=== PATIENT | male | born 1980 | race Caucasian/White ===

== ENCOUNTER → 2020-06-27 15:25 | Outpatient (BNVA) | payer OTHER, SELFPAY | PROVIDERS: PCP Physician Assistant; Visit Provider Surgery | DX: K42.9 Umbilical hernia without obstruction or gangrene (principal); E66.01 Morbid (severe) obesity due to excess calories | CPT/HCPCS: 99202 ==

== ENCOUNTER 2020-07-16 10:13 | Outpatient (REF) | payer OTHER, SELFPAY ==
[2020-07-16 11:32] LABS: MANUAL DIFF FLAG NO
[2020-07-16 11:42] LABS: Basophils Percent Auto 0.6 % (0-2); Eosinophils Absolute Auto 0.1 X10*3/uL (0.0-0.4); Eosinophils Percent Auto 2.6 % (0-4); Hematocrit 43.4 % (42-52); Hemoglobin 13.9 g/dl (14.0-18.0); Imm Gran Abs Auto 0.02 X10*3/uL (0.00-0.03); Imm Gran Pct Auto 0.4 % (0.0-0.4); Lymphocytes Absolute Auto 1.5 X10*3/uL (1.2-4.9); Mean Corpuscular Hemoglobin 28.4 pg (27.0-33.0); Mean Corpuscular Volume 88.6 fL (80-98); Mean Platelet Volume 11.5 fL (9.4-12.4); Monocytes Absolute Auto 0.3 X10*3/uL (0.1-1.2); Monocytes Percent Auto 6.7 % (2-11); Neutrophils Absolute Auto 2.6 X10*3/uL (2.0-8.3); Neutrophils Percent Auto 56.7 % (45-73); Platelet Count 210 X10*3/uL (160-400); Red Cell Distribution Width 13.2 % (11.0-16.0); White Blood Count 4.7 X10*3/uL (4.8-10.8)
[2020-07-16 12:09] LABS: B Type Natriuretic Peptide < 10 pg/mL (<100)
[2020-07-16 12:32] LABS: Estimated Average Glucose 126 mg/dL
[2020-07-16 12:40] LABS: Alanine Aminotransferase 14 U/L (0-40); Albumin Level 4.1 g/dL (3.5-5.0); Alkaline Phosphatase 55 U/L (39-117); Anion Gap 12 (12-20); Aspartate Amino Transferase 10 U/L (5-37); Bilirubin Total 0.2 mg/dL (0.0-1.0); Blood Urea Nitrogen 10 mg/dL (9-16); Calcium 9.1 mg/dL (8.4-10.2); Carbon Dioxide 37 mmol/L (22-29); Chloride 95 mmol/L (96-108); Cholesterol 173 mg/dL; Estimated Glomerular Filt Rate > 60; Glucose Fasting 159 mg/dL (60-99); HDL Cholesterol 42 mg/dL; LDL Cholesterol Calculated 102 mg/dl; Potassium 3.9 mmol/L (3.3-5.1); Sodium 140 mmol/L (135-145); Total Protein 7.2 g/dL (6.5-8.0); Triglycerides 147 mg/dL
== END 2020-07-16 10:14 | disposition home or self-care (01) ==
LOC: HO.LAB 10:13
PROVIDERS: PCP Physician Assistant; Visit Provider Physician Assistant
DX: R60.0 Localized edema (principal); I10 Essential (primary) hypertension
CPT/HCPCS: 36415; 80053; 80061; 83036; 83880; 84443; 85025

== ENCOUNTER → 2020-07-31 07:37 | Day surgery (SDC) | payer OTHER, SELFPAY ==
[2020-07-25 11:44] VITALS: BMI 44.7
--- NOTE | 2020-07-30 08:30 | P.CONAN_ITS ---
Documented by User: Dena Naranjo 07/30/20 08:33 HPI - Anesthesia Eval Consult details Narrative: 40yo M for Hernia Repair Umbilical with mesh PMFSH Active Problems Active Problems: All Active Problems (Updated 07/25/20 @ 12:30 by Eliel Jaeger PA-C) GERD (gastroesophageal reflux disease) (Acute) JAMEEL (generalized anxiety disorder) (Acute) Lower extremity edema (Acute) Smoker (Acute) HTN (hypertension) (Acute) Fall (Acute) Left ankle pain (Acute) Left ankle sprain (Acute) SOB (shortness of breath) on exertion (Acute) Umbilical hernia (Acute) Allergic rhinitis (Acute) ALISON (obstructive sleep apnea) (Acute) Morbid obesity (Acute) Past Medical History Medical History Anxiety Depression HTN (hypertension) Morbid obesity ALISON (obstructive sleep apnea) Family History Family History Mother No problems noted. Father No problems noted. Maternal Grandfather Bone cancer Maternal Aunt Cervical cancer Maternal Grandmother Colon cancer, Onset Age: 89 Surgical History Surgical History H/O shoulder surgery Social History Social History Are you a primary career center director to a significant other at home: No Do you presently have visiting nurse or other home services: No Alcohol intake: never Smoking Status: Current every day smoker Tobacco Type: Cigarette Cigarettes Per Day: 15 Smoked in Last 30 Days: Yes Patient Given Instructions on How to Stop Smoking: Yes Date Education Initiated: 07/25/20 Are you DNR?: No Advance Directives: No Advance Directives Information Provided: No Advance Directives on File: No Recently lost weight without trying: No Eating poorly because of decreased appetite: No Nutrition Risks: No Nutritional Risk Meds Allergies Allergy/AdvReac Type Severity Reaction Status Date / Time No Known Allergies Allergy Verified 07/25/20 11:35 Home Medications Medication Instructions Recorded Confirmed Last Taken Type bupropion HCl 300 mg 24 hr tablet, 300 mg PO QAM 03/22/20 07/25/20 Unknown History extended release Exam Exam Date and Time: July 30, 2020 0830 Height,Weight and Vital Signs: Height 5 ft 11 in Weight 145.603 kg Pertinent Lab Results Pertinent Lab Results: Laboratory Tests 07/16/20 07/16/20 10:38 10:38 WBC 4.7 L Hgb 13.9 L Hct 43.4 Plt Count 210 Sodium 140 Potassium 3.9 Chloride 95 L Carbon Dioxide 37 H BUN 10 Creatinine 0.81 Assessment and Plan Assessment Anesthesia Assessment: Chart Reviewed Documented by User: Lillian Friedman 07/31/20 08:19 [facility] Past Medical History Medical History Anxiety Depression HTN (hypertension) Morbid obesity ALISON (obstructive sleep apnea) Family History Family History Mother No problems noted. Father No problems noted. Maternal Grandfather Bone cancer Maternal Aunt Cervical cancer Maternal Grandmother Colon cancer, Onset Age: 89 Surgical History Surgical History H/O shoulder surgery Social History Social History Are you a primary career center director to a significant other at home: No Do you presently have visiting nurse or other home services: No Alcohol intake: never Smoking Status: Current every day smoker Tobacco Type: Cigarette Cigarettes Per Day: 15 Smoked in Last 30 Days: Yes Patient Given Instructions on How to Stop Smoking: Yes Date Education Initiated: 07/25/20 Are you DNR?: No Advance Directives: No Advance Directives Information Provided: No Advance Directives on File: No Recently lost weight without trying: No Eating poorly because of decreased appetite: No Nutrition Risks: No Nutritional Risk Meds Allergies Allergy/AdvReac Type Severity Reaction Status Date / Time No Known Allergies Allergy Verified 07/25/20 11:35 Home Medications Medication Instructions Recorded Confirmed Last Taken Type bupropion HCl 300 mg 24 hr tablet, 300 mg PO QAM 03/22/20 07/25/20 Unknown History extended release Exam Airway Mallampati Class: III TM Dist: >3cm Neck ROM: Full Assessment and Plan Assessment Anesthesia Assessment: Anesthesia Plan Discussed Final Anesthetic Review NPO: Yes ASA Class: III Final Preanesthetic Review: No Changes in Pt Med Stat, Meds/Allgs Chart Reviewed, Consent Obtained/Reviewed and Anes Risks/Benef Reviewed Patient Risk: Intermediate Procedure Risk: Low Assessment/Block/Sedation in SS: Assess/Block/Sedation-SS Anesthetic Plan Anesthetic Plan: GA and MAC: Disposition: Standard PACU
[2020-07-31 07:48] VITALS: BP 115/72; PULSE 99; RESP 20; TEMP 36.6; O2SAT 95
--- NOTE | 2020-07-31 08:25 | MHC.SHP ---
Pre-Procedural Eval Section B Chief Complaint: umbilical hernia without obstruction Allergies: Allergies Allergy/AdvReac Type Severity Reaction Status Date / Time No Known Allergies Allergy Verified 07/25/20 11:35 Plan I have reviewed the history and physical and performed a pertinent physical examination on my patient. No changes have occurred unless specified.
--- NOTE | 2020-07-31 08:31 | PC.NURSE ---
PT SWOLLEN ENTIRE BODY LEGS HANDS STS NORMAL FOR HIM SEEING PCP FOR THIS SEVERAL ATTEMTPS AT IV UNSUCCESSFULLY X5
--- NOTE | 2020-07-31 08:36 | PC.NURSE ---
ANESTHESIA AT BEDSIDE SPEAKING TO PT DR LEAL CONCERNING SWELLING PLAN IS TO FOLLOW UP WITH PCP FOR SWELLING PT STS HE IS ON LASIX AWAITING DR MORAES TO SPEAK TO PT PT VERBALIZED UNDERSTANDING
--- NOTE | 2020-07-31 08:43 | PM.EVENT ---
Event Note Date of Service: 07/31/20 Event Note: patient evaluated by anesthesiologist pt noted to have severe edema staff unable to place IV despite multiple attempts anesthesia has recommended further workup for edema and to postpone case in view of possible underlying medical issues explained above to patient he was instructed to see his PCP about the above to be reevaluated I can see him again in the office to be rescheduled
--- NOTE | 2020-07-31 08:54 | PC.NURSE ---
PT CANCELLED DR MORAES AND ANESTHESIA BEDSIDE FOLLOW UP WITH PCP FOR SWELLING
== END ==
PROVIDERS: PCP Physician Assistant; Visit Provider Surgery
DX: K42.9 Umbilical hernia without obstruction or gangrene (principal); Z53.8 Procedure and treatment not carried out for other reasons; R60.9 Edema, unspecified; E66.01 Morbid (severe) obesity due to excess calories; Z68.41 Body mass index [BMI] 40.0-44.9, adult; I10 Essential (primary) hypertension; G47.33 Obstructive sleep apnea (adult) (pediatric); F17.210 Nicotine dependence, cigarettes, uncomplicated; Z79.899 Other long term (current) drug therapy
CPT/HCPCS: J1100; J1170; J1885; J2250; J2405; J3010

== ENCOUNTER → 2020-08-07 10:17 | Outpatient (REF) | payer OTHER, SELFPAY | LOC: HO.SL 10:17 | PROVIDERS: PCP Physician Assistant; Visit Provider Physician Assistant | DX: G47.33 Obstructive sleep apnea (adult) (pediatric) (principal) | CPT/HCPCS: 95806 ==

== ENCOUNTER → 2020-08-16 13:55 | Outpatient (REF) | payer OTHER, SELFPAY ==
--- NOTE | 2020-08-16 13:59 | CA_ITS ---
Transthoracic Echocardiogram Patient (Last, First, Middle): Franklin Donnelly J Gender: Male Date of : 1980 Age: 40 Procedure Date: 08/16/2020 Procedure Type: Transthoracic Echocardiogram Location: OP Height: 177.8 cm Weight: 136.08 kg BSA: 2.48 m2 Heart Rate: bpm BP: 125 / 70 mmHg Certified Legal Investigator: SHALA Referring MD: Eliel Jaeger PA-C Side Laster Staple: Marquez Vizcaino MD Symptoms: R60.0 - Localized edema Study Quality: Technically Difficult ECG Rhythm: Sinus Conclusions: - 1. Technically difficult study due to body habitus, contrast could not be use as patient had difficult IV access 2. Normal LV systolic and diastolic function 3. Limited but within normal limits cardiac valvular Doppler 4. No gross pericardial effusion Findings Left Ventricle Normal left ventricular size, thickness, and systolic function. The visually estimated ejection fraction is between 60-65%. Regional wall motion abnormalities can not be excluded due to suboptimal endocardial definition. Diastolic function is normal for age. Right Ventricle The right ventricle was not well visualized. Atria The left atrium is normal in size. Interatrial shunt cannot be excluded. The right atrium was not well visualized. Aortic Valve The aortic valve structure and function is likely normal. There is no aortic valve stenosis. There is no aortic valve regurgitation. Mitral Valve Likely normal mitral valve structure and function. There is trace mitral valve regurgitation. There is no mitral valve stenosis. Pulmonic Valve The pulmonic valve was not well visualized. Tricuspid Valve The tricuspid valve was not well visualized. Tricuspid regurgitation envelope is inadequate for calculation of right ventricular systolic pressure. Great Vessels All visible segments of the aorta are normal in size. The pulmonary artery was not well visualized. Venous The inferior vena cava is normal in size and collapses greater than 50% with inspiration. Pericardium/Pleural There is no evidence of pericardial effusion. Prior Study Comparison No prior study available for comparison. Measurements M-Mode Liner Measurements Normals - Women/Men AOV Cusps: 2.00 1.5-2.6 cm/m2 2D Linear Measurements IVSd: 0.66 0.6-0.9/0.6-1.0 cm LVIDd: 5.51 3.9-5.3/4.2-5.9 cm LVIDd Index: 2.22 2.4-3.2/2.2-3.1 cm/m2 LVIDs: 3.22 2.0-3.6 cm LVPWd: 0.76 0.7-1.1 cm Ao Root: 2.90 2.1-3.5 cm LA Diam: 3.80 2.7-3.8/3.0-4.0 cm LAIDs Index: 1.53 1.5-2.3 cm/m2 LV Mass: 172.15 67-162/88-224 g LV Mass Index: 69.42 43-95/49-115 g/m2 LVOT Diam: 2.20 3.0+(-)1.3 cm 2D Systolic Function EF 4C: 54.10 >55% EF 2C: 70.30 >55% EF BiP: 63.50 >55% Mitral Valve MV Pk E: 0.72 MV PK A: 0.74 MV Decel Time: 222.00 E/A: 1.00 E'Lateral: 10.10 E'Medial: 8.27 E/E' Med: 8.70 E/E' Lat: 7.10 PHT: 65.00 MVA PHT: 3.38 Decel [place]: 3.23 Aortic Valve AoV Pk Pedro: 1.49 AoV Mn Pedro: 1.06 AoV VTI: 0.31 AoV Pk Grad: 9.00 Aov Mn Grad: 5.00 ENOCH Cont.VTI: 2.38 LVOT LVOT Pk Pedro: 1.02 LVOT Mn Pedro: 0.76 LVOT VTI: 0.20 LVOT Pk Grad: 4.00 LVOT Mn Grad: 3.00 LVOT Diam: 2.20 LVOT Area: 3.80 Diastolic Function MV Pk E: 0.72 MV Pk A: 0.74 E/A: 1.00 E'Medial: 8.27 E/E' Med: 8.70 E' Laterial: 10.10 E/E' Lat: 7.10 Tricuspid Valve RA Press: 3.00 Great Vessels Aorta Ao Root-2D: 2.90 2.0-3.7 cm Ao Asc: 2.80 2.1-3.4 cm Ao Arch: 2.50 Pulmonary Valve PV Pk Pedro: 1.05 Peak PV Grad: 4.00 Updated in Other Vendor System with Status of Final Marquez Vizcaino MD electronically signed on 08/17/2020 8:51:59 AM with status of Final
== END ==
LOC: HO.CARD 13:55
PROVIDERS: Visit Provider Physician Assistant
DX: R60.0 Localized edema (principal); R06.02 Shortness of breath; G47.33 Obstructive sleep apnea (adult) (pediatric); G47.34 Idiopathic sleep related nonobstructive alveolar hypoventilation; E66.01 Morbid (severe) obesity due to excess calories; F41.8 Other specified anxiety disorders; J30.9 Allergic rhinitis, unspecified; Z68.41 Body mass index [BMI] 40.0-44.9, adult; Z79.899 Other long term (current) drug therapy; F17.200 Nicotine dependence, unspecified, uncomplicated
CPT/HCPCS: 93306; 99202

== ENCOUNTER → 2020-10-31 14:36 | Outpatient (BNVA) | payer OTHER, SELFPAY | PROVIDERS: PCP Physician Assistant; Visit Provider Internal Medicine | DX: G47.33 Obstructive sleep apnea (adult) (pediatric) (principal); G47.34 Idiopathic sleep related nonobstructive alveolar hypoventilation; I89.0 Lymphedema, not elsewhere classified; I10 Essential (primary) hypertension; F41.8 Other specified anxiety disorders; E66.01 Morbid (severe) obesity due to excess calories; J30.9 Allergic rhinitis, unspecified; F17.210 Nicotine dependence, cigarettes, uncomplicated; Z68.41 Body mass index [BMI] 40.0-44.9, adult; Z79.899 Other long term (current) drug therapy | CPT/HCPCS: 99212 ==

== ENCOUNTER → 2020-11-20 21:06 | Outpatient (REF) | payer OTHER, SELFPAY | LOC: HO.SL 21:06 | PROVIDERS: PCP Physician Assistant; Visit Provider Internal Medicine | DX: G47.33 Obstructive sleep apnea (adult) (pediatric) (principal); G47.34 Idiopathic sleep related nonobstructive alveolar hypoventilation | CPT/HCPCS: 95811 ==

== ENCOUNTER → 2020-11-29 14:49 | Outpatient (BNVA) | payer OTHER, SELFPAY | PROVIDERS: PCP Physician Assistant; Visit Provider Internal Medicine | DX: G47.33 Obstructive sleep apnea (adult) (pediatric) (principal); G47.34 Idiopathic sleep related nonobstructive alveolar hypoventilation; E66.01 Morbid (severe) obesity due to excess calories; I89.0 Lymphedema, not elsewhere classified | CPT/HCPCS: 99212 ==

== ENCOUNTER 2020-12-20 14:26 | Outpatient (REF) | payer OTHER, SELFPAY ==
[2020-12-20 17:13] LABS: Albumin Level 4.2 g/dL (3.5-5.0); Anion Gap 11 (12-20); Blood Urea Nitrogen 8 mg/dL (9-16); Calcium 9.3 mg/dL (8.4-10.2); Carbon Dioxide 35 mmol/L (22-29); Chloride 96 mmol/L (96-108); Estimated Glomerular Filt Rate > 60; Glucose Random 94 mg/dL (60-115); Rheumatoid Factor < 15.0 IU/mL (<15.0); Sodium 138 mmol/L (135-145)
[2020-12-20 17:18] LABS: Creatinine Urine 162.73 mg/dL; Total Protein Urine Random < 7 mg/dL (<12)
[2020-12-20 18:48] LABS: Erythrocyte Sedimentation Rate 44 MM/HR (0-15)
[2020-12-24 18:07] LABS: Anti Nuclear Antibody Screen NEGATIVE (NEGATIVE)
[2020-12-27 14:08] LABS: Angiotensin Converting Enzyme 90.4 U/L (9-67)
== END 2020-12-20 14:27 | disposition home or self-care (01) ==
LOC: HO.LAB 14:26
PROVIDERS: Absent Provider Physician Assistant; PCP Physician Assistant; Referring Provider Physician Assistant; Visit Provider Internal Medicine Cardiovascular Disease
DX: R07.89 Other chest pain (principal); I89.0 Lymphedema, not elsewhere classified; R60.0 Localized edema
CPT/HCPCS: 36415; 80048; 82040; 82164; 84156; 85652; 86038; 86039; 86431; 93005; 99202

== ENCOUNTER → 2021-01-10 15:20 | Outpatient (BNVA) | payer OTHER, SELFPAY | PROVIDERS: PCP Physician Assistant; Visit Provider Internal Medicine | DX: I89.0 Lymphedema, not elsewhere classified (principal); G47.33 Obstructive sleep apnea (adult) (pediatric); G47.34 Idiopathic sleep related nonobstructive alveolar hypoventilation; E66.01 Morbid (severe) obesity due to excess calories; F17.200 Nicotine dependence, unspecified, uncomplicated | CPT/HCPCS: 99212 ==

== ENCOUNTER 2021-02-28 14:30 | Outpatient (RCR) | payer OTHER, SELFPAY | END 2021-07-16 08:04 | disposition home or self-care (01) | LOC: HO.OT 14:30 | PROVIDERS: PCP Physician Assistant; Visit Provider Physician Assistant | DX: I89.0 Lymphedema, not elsewhere classified (principal) | CPT/HCPCS: 97140; 97166; 97167 ==

== ENCOUNTER → 2021-02-28 15:30 | Outpatient (BNVA) | payer OTHER, SELFPAY | PROVIDERS: PCP Physician Assistant; Visit Provider Internal Medicine | DX: G47.33 Obstructive sleep apnea (adult) (pediatric) (principal); I89.0 Lymphedema, not elsewhere classified; E66.01 Morbid (severe) obesity due to excess calories; F17.200 Nicotine dependence, unspecified, uncomplicated; Z68.41 Body mass index [BMI] 40.0-44.9, adult | CPT/HCPCS: 99212 ==

== ENCOUNTER → 2021-12-30 15:56 | Outpatient (BNVA) | payer OTHER, SELFPAY | PROVIDERS: PCP Physician Assistant; Visit Provider Surgery | DX: K42.9 Umbilical hernia without obstruction or gangrene (principal); E66.01 Morbid (severe) obesity due to excess calories; F17.200 Nicotine dependence, unspecified, uncomplicated; Z86.73 Personal history of transient ischemic attack (TIA), and cerebral infarction without residual deficits; Z71.6 Tobacco abuse counseling | CPT/HCPCS: 99212 ==

== ENCOUNTER → 2022-08-25 13:18 | Outpatient (BNVA) | payer OTHER, SELFPAY | PROVIDERS: PCP Physician Assistant; Visit Provider Internal Medicine | DX: G47.33 Obstructive sleep apnea (adult) (pediatric) (principal); J30.9 Allergic rhinitis, unspecified; I89.0 Lymphedema, not elsewhere classified; E66.01 Morbid (severe) obesity due to excess calories; F17.210 Nicotine dependence, cigarettes, uncomplicated; Z68.42 Body mass index [BMI] 45.0-49.9, adult; Z99.89 Dependence on other enabling machines and devices | CPT/HCPCS: 99212 ==

== ENCOUNTER 2023-09-02 12:48 | Outpatient (AMB) | payer OTHER, SELFPAY ==
--- NOTE | 2023-09-02 12:57 | MHC.OFFWIV ---
Intake Vital Signs 09/02/23 12:58 Height 5 ft 11 in Weight 318 lb 6 oz BMI 44.4 BP 138/64 Blood Pressure Location Rt brachial Position Sitting Respiration 15 Pulse 115 H Pulse Source Pulse Oximeter Temp 97 F Temp Source Temporal Artery Scan Pulse Oximetry (%) 94 Oxygen Delivery Method Room Air Intake Visit Reasons: Body aches and back pain and trouble breathing Intake Note: Patient recently had a virus and was vomitting, he recovered from it went back to work and started vomitting again. Patient Tobacco Use Status: Current everyday Tobacco user Director Of Instrumental Music Required: No Accompanied by: Self / Same As Patient Allergies No Known Allergies Allergy (Verified 09/02/23 13:29) Medication List - Last Reconciled 09/02/23 by Tracey Verdin, CARTOGRAPHIC ENGINEER- albuterol sulfate 90 mcg/actuation (Ventolin HFA) 1 inh inhalation QID PRN 30 days aspirin 81 mg PO DAILY atorvastatin 80 mg PO DAILY blood pressure kit-extra large As directed bupropion HCl XL 300 mg PO DAILY citalopram 40 mg PO DAILY clonazepam 0.5 mg PO BID PRN 30 days compr.stocking,knee,long,x-lrg As directed fluticasone propionate 50 mcg/actuation 1 spray intranasal Q12H 30 days furosemide (Lasix) 20 mg PO Q OTHER DAY 30 days hydrochlorothiazide 25 mg PO QAM ibuprofen 800 mg PO BID PRN 90 days loratadine 10 mg PO DAILY 90 days miscellaneous medical supply bilateral Calf Juxta Fit 30-40mmHg miscellaneous medical supply Custom Bike Shorts miscellaneous medical supply 1 ea miscellaneous DAILY 99 days trazodone 100 mg PO BEDTIME Do you need a note to return to daycare/school/sports/work: No HPI HPI Comments History of Present Illness Details Here today with flu like sx that started last Thursday Next am started vomiting Thursday started to feel better Returned to work on Thursday & Thursday however he then felt like he threw his back out , affecting the left side. Today upon waking he is having extreme left back pain which radiates to anterior abdomen,chills, sweats, trouble breathing as it hurts his back and stomach when he takes a deep breath,vomiting , unable to tolerate p.o. intake other than water. He admits feeling like he has to urinate however as he is urinating the urine stream stops abruptly. Denies hematuria. [facility] Medical History (Updated 09/02/23 @ 13:37 by Tracey Verdin [facility]) Smoker Morbid obesity Sarcoid Nocturnal hypoxemia HTN (hypertension) Anxiety ALISON (obstructive sleep apnea) Morbid obesity Depression Surgical History H/O shoulder surgery Family History Mother No problems noted. Father No problems noted. Maternal Grandfather Bone cancer Maternal Aunt Cervical cancer Maternal Grandmother Colon cancer, Onset Age: 89 Social History Housing: House Are you a primary director career services to a significant other at home: No Do you presently have visiting nurse or other home services: No Alcohol intake: never Patient Tobacco Use Status: Current everyday Tobacco user Tobacco use type: Cigarette Cigarette Packs Per Day: 1 Cigarettes Per Day: 20 e-Cigarette/Vaping Use: Currently Using Current occupational status: employed Cognitive needs: No Hearing needs: No Vision needs: No Review of Systems Const All systems reviewed & are unremarkable except as noted in HPI and below Physical Exam Vital Signs: Last Vital Signs Temp 97 F 09/02/23 12:58 Pulse 115 H 09/02/23 12:58 Resp 15 09/02/23 12:58 BP 138/64 09/02/23 12:58 Pulse Ox 94 09/02/23 12:58 Oxygen Delivery Method Room Air 09/02/23 12:58 BMI result Body Mass Index 44.4 Const Other: Awake alert, mildly ill-appearing, diaphoretic, accompanied by Mucous membranes dry Tachycardic Lung sounds diminished throughout given guarded inspiration Positive CVAT on left Pain over left upper quadrant with palpation, patient was examined sitting as he could not lie supine for the exam given the amount of pain and discomfort he was in. Assessment & Plan Assessment & Plan (1) Febrile illness: Code(s): R50.9 - Fever, unspecified Plan: . (2) Left flank pain: Code(s): R10.9 - Unspecified abdominal pain Plan: .. (3) Dehydration: Code(s): E86.0 - Dehydration Plan: . Plan . This note is constructed using voice recognition software. While every effort has been made to ensure accuracy in therapist rrt, still errors may have been included Sometimes, these errors may affect the content or meaning of the given sentence . Total time spent caring for the patient today was 40 minutes. This includes time spent before the visit reviewing the chart, time spent during the visit, and time spent after the visit on documentation Patient Instructions: Given the clinical presentation I have advised the patient to seek care in the emergency room. [facility] expect called at [phone]. Pt will go to ED via private vehicle. Advised to stay NPO. Emesis basin provided. FU with PCP after work up. Coding Level of Care Code Est Pt Level 5 (18084) Diagnoses Febrile illness R50.9 Left flank pain R10.9 Dehydration E86.0
[2023-09-02 12:58] VITALS: BP 138/64; PULSE 115; RESP 15; TEMP 36.1; O2SAT 94; BMI 44.4
== END 2023-09-02 13:40 | disposition home or self-care (01) ==
PROVIDERS: PCP Physician Assistant; Visit Provider Nurse Practitioner Family
DX: R50.9 Fever, unspecified (principal); R10.9 Unspecified abdominal pain; E86.0 Dehydration
CPT/HCPCS: 99215

== ENCOUNTER 2023-09-05 06:41 | Emergency (ER) | payer OTHER, SELFPAY ==
[2023-09-05] VITALS (7 sets, daily range): BP systolic 129–156; BP diastolic 72–76; PULSE 91–101; RESP 12–22; TEMP 37.1–39.4; O2SAT 93–97; BMI 45.2
--- NOTE | ~2023-09-05 | XR_ITS ---
EXAMINATION: XR CHEST CLINICAL INFORMATION: Fever COMPARISON: None available. TECHNIQUE: 2 views of the chest were obtained. FINDINGS: The cardiac and mediastinal contours are normal. There is airspace disease in the left upper lobe probably representing pneumonia. Lungs are otherwise clear. No pleural effusion or pneumothorax. Bony structures are unremarkable. XR/XR chest 2V IMPRESSION: Airspace disease in the left upper lobe probably representing pneumonia. Follow-up chest x-ray following treatment recommended.
[2023-09-05] MEDS: Acetaminophen 325 MG TABLET 650 MG PO (07:59)
--- NOTE | 2023-09-05 07:59 | ED.URI ---
HPI - URI/Sore Throat General Chief Complaint: Upper Respiratory Symptoms Stated Complaint: diff breathing spitting up blood Time Seen by Provider: 09/05/23 07:34 Source: patient and family Mode of arrival: ambulatory Limitations: no limitations History of Present Illness ED Provider: Rachel LANCASTER HPI Narrative: 43-year-old male history of hypertension, obesity, ALISON on CPAP noncompliant, anxiety, CVA, depression, lymphedema, umbilical hernia presenting with productive cough, shortness of breath, fatigue, malaise, myalgias, fevers, chills, nausea, vomiting ongoing for the past 2 weeks. He reports that today what made him come in was that he was having coughing fits and at 1 point he noted blood-tinged sputum. He never vomited blood. He states he feels terrible. No sick contacts at home however he tells me that ?my dog has a parasite ?. Patient denies chest pain, diarrhea, visual changes, dizziness. Patient not on blood thinner Related Data Previous Rx's ?Medication ?Instructions ?Recorded hydrochlorothiazide 25 mg tablet 25 mg PO QAM #90 tabs 07/29/21 miscellaneous medical supply See Rx Instructions miscellaneous 08/19/21 .COMPLEX #1 ea miscellaneous medical supply See Rx Instructions miscellaneous 08/19/21 .COMPLEX #2 ea blood pressure kit-extra large #1 ea 10/11/21 albuterol sulfate 90 mcg/actuation 1 inh inhalation QID PRN shortness 03/05/22 aerosol inhaler (Ventolin HFA) of breath or wheezing 30 days #8.5 grams loratadine 10 mg tablet 10 mg PO DAILY 90 days #90 tabs 07/14/22 compr.stocking,knee,long,x-lrg #2 ea 09/09/22 furosemide 20 mg tablet (Lasix) 20 mg PO Q OTHER DAY 30 days #15 09/09/22 tabs miscellaneous medical supply 1 ea miscellaneous DAILY 99 days 09/09/22 #2 ea fluticasone propionate 50 1 spray intranasal Q12H 30 days 12/18/22 mcg/actuation nasal #16 grams spray,suspension aspirin 81 mg tablet,delayed 81 mg PO DAILY #90 tabs 06/14/23 release bupropion HCl 300 mg 24 hr tablet, 300 mg PO DAILY #90 tabs 06/29/23 extended release clonazepam 0.5 mg tablet 0.5 mg PO BID PRN anxiety 30 days 07/07/23 #60 tabs ibuprofen 800 mg tablet 800 mg PO BID PRN pain 90 days 07/07/23 #180 tabs atorvastatin 80 mg tablet 80 mg PO DAILY #90 tabs 08/03/23 citalopram 40 mg tablet 40 mg PO DAILY #90 tabs 08/03/23 trazodone 100 mg tablet 100 mg PO BEDTIME #90 tabs 08/13/23 albuterol sulfate 90 mcg/actuation 2 inh inhalation Q4-6H PRN 09/05/23 breath activated powder inhaler shortness of breath or wheezing #1 ea doxycycline hyclate 100 mg capsule 100 mg PO BID 10 days #20 caps 09/05/23 prednisone 20 mg tablet 40 mg (2 x 20 mg) PO DAILY 5 days 09/05/23 #10 tabs Allergies Allergy/AdvReac Type Severity Reaction Status Date / Time No Known Allergies Allergy Verified 09/05/23 06:57 Review of Systems Review of Systems: Yes all other systems are reviewed and are negative [facility] Past Medical History Attestation statement: The following information was validated with the patient. Source: old records reviewed and nursing notes reviewed Medical History (Updated 09/05/23 @ 11:51 by BUDDY Wang) Smoker Morbid obesity Sarcoid Nocturnal hypoxemia HTN (hypertension) Anxiety ALISON (obstructive sleep apnea) Morbid obesity Depression Surgical History H/O shoulder surgery Family History Family History Mother No problems noted. Father No problems noted. Maternal Grandfather Bone cancer Maternal Aunt Cervical cancer Maternal Grandmother Colon cancer, Onset Age: 89 Social History Social History Housing: House Are you a primary medicare contact specialist to a significant other at home: No Do you presently have visiting nurse or other home services: No Alcohol intake: never Patient Tobacco Use Status: Current everyday Tobacco user Tobacco use type: Cigarette Cigarette Packs Per Day: 1 Cigarettes Per Day: 20 e-Cigarette/Vaping Use: Currently Using Advance Directives: Yes Advance Directives Information Provided: Yes Advance Directives on File: No Do you have a plan to hurt others: No Plan Current occupational status: employed Cognitive needs: No Hearing needs: No Vision needs: No Physical Exam Vital Signs: Vital Signs: Last Vital Signs Temp 98.7 F 09/05/23 09:50 Pulse 91 09/05/23 09:56 Resp 12 09/05/23 09:56 BP 132/72 09/05/23 09:56 Pulse Ox 93 09/05/23 10:35 O2 Del Method Room Air 09/05/23 10:35 BMI result Body Mass Index 45.2 Course Reevaluation(s) Reevaluation #1: Patient was tachycardic, febrile, Tylenol ordered. Patient very difficult stick nursing and nurisng staff having a hard time w/ IV and labs delay for this reason Time: 08:04 Reevaluation #2: IV placed by nursing staff. Labs still not obtained due to patient being very difficult stick. Another compliance technician trying at this time Patient + for opiates and fentanyl Time: 08:53 Reevaluation #3: Labs finally obtained. Time: 10:41 Additional Reevaluation(s): 1147 CBC with a normocytic anemia appears to be around patient's baseline. Chemistry unremarkable. Troponin negative BNP normal. UA without infection. Chest x-ray pending. Patient wants to go home. He does not want to stay in the hospital he states it is his daughter's birthday today. Is saturating now 92-93% on room air. He is only 89% when he ambulates. I explained to him this is a admission criteria, and this should require further workup. He tells me he has ALISON on CPAP and he has not been using it as prescribed and he thinks that this is contributing. I explained to him this could be a pneumonia or something else he would like to go home with antibiotics, steroids and albuterol. He does not want to be admitted. I explained to him the risks of leaving against medical advice such as respiratory distress, , ACS. Patient verbalizes understanding of this. Educated patient on diagnosis and treatment plan, answered all question, patient verbalizes understanding. At this time patient will be discharged home, advised to return with new or worsening symptoms. Educated on worrisome signs and symptoms and when to return. 1207 Patient did not sign ama and left and also left narcan here. Medications Administered Discontinued Medications Generic Name Dose Route Start Last Admin Trade Name Kandace PRN Reason Stop Dose Admin Acetaminophen 650 mg 09/05/23 07:39 09/05/23 07:59 Acetaminophen 325 Mg Tablet PO 09/05/23 07:40 650 mg ONCE ONE Administration Albuterol Sulfate 2.5 mg/ 0 mg 09/05/23 08:19 09/05/23 08:23 Albuterol/Ipratropium 3 ml INHALE 09/05/23 08:20 1 dose ONCE ONE Administration Albuterol Sulfate 2.5 mg/ 0 mg 09/05/23 09:04 09/05/23 09:07 Albuterol/Ipratropium 3 ml INHALE 09/05/23 09:05 1 dose ONCE ONE Administration Ceftriaxone Sodium 1 gm/ 50 mls @ 100 mls/hr 09/05/23 07:39 09/05/23 11:35 Sodium Chloride IV 09/05/23 08:08 Infused ONCE ONE Infusion Sodium Chloride 4,286.46 mls @ 4,286.46 mls/hr 09/05/23 07:39 09/05/23 09:02 Ns 30 ml/kg infuse over 1 hr (4286.46 ml) 09/05/23 08:38 Infused IV Infusion .Q1H STA Medical Decision Making Medical Decision Making [facility] Narrative: 0739 43 year old male presents w/ upper respiratory sx X 2 weeks PE faint expiratory wheezing b/l. 3+ Non pitting edema b/l. Hx and pe concerning for URI, bronchitis, pna. Unlikely acs, pe, septic emboli. Will rule out electrolyte abnormalities and UTI Plan- labs, imaging,urine, atbx and fluids ordred. Septic focus exam done at time of arrival and sepsis alert paged overhead Differential Diagnosis Differential Diagnoses: The differential diagnosis associated with the presentation includes Hx and pe concerning for URI, bronchitis, pna. Unlikely acs, pe, septic emboli. Will rule out electrolyte abnormalities and UTI Admission/Observation Consideration of admission/observation: Escalation of care including admission/observation considered Likely Lab Data [facility] Lab Attestation statement: I reviewed the patient's lab results. 09/05/23 10:38 09/05/23 10:38 Labs: Lab Results 09/05/23 09/05/23 Range/Units 08:04 10:38 WBC 8.4 (4.8-10.8) X10*3/uL RBC 3.62 L (4.60-5.80) X10*6/uL Hgb 10.6 L (14.0-18.0) g/dl Hct 31.5 L (42.0-52.0) % MCV 87.0 (80.0-98.0) fL MCH 29.3 (27.0-33.0) pg MCHC 33.7 (31.0-36.0) g/dl RDW 13.3 (11.0-16.0) % Plt Count 201 (160-400) X10*3/uL MPV 10.5 (9.4-12.4) fL Immature Gran % (Auto) 0.6 H (0.0-0.4) % Neut % (Auto) 78.0 H (45-73) % Lymph % (Auto) 12.0 L (20-40) % [place] % (Auto) 8.4 (2-11) % Eos % (Auto) 0.6 (0-4) % Baso % (Auto) 0.4 (0-2) % Lymph # (Auto) 1.0 L (1.2-4.9) X10*3/uL [place] # (Auto) 0.7 (0.1-1.2) X10*3/uL Eos # (Auto) 0.1 (0.0-0.4) X10*3/uL Baso # (Auto) 0.0 (0.0-0.2) X10*3/uL Abs Immat Gran (auto) 0.05 H (0.00-0.03) X10*3/uL Absolute Neuts (auto) 6.5 (2.0-8.3) x10*3/uL Absolute Nucleated RBC 0.000 (0.0-0.012) X10*3/uL Nucleated RBC % (auto) 0.0 (0.0-0.2) /100WBC PT 15.1 H (11.1-13.3) SEC INR 1.2 H (0.9-1.1) Sodium 141 (135-145) mmol/L Potassium 3.8 (3.3-5.1) mmol/L Chloride 106 (96-108) mmol/L Carbon Dioxide 26 (22-29) mmol/L Anion Gap 13 (12-20) BUN 8 L (9-16) mg/dL Creatinine 0.70 (0.5-1.4) mg/dL Estim Creat Clear Calc 190.2 Estimated GFR > 60 Random Glucose 125 H (60-115) mg/dL Lactic Acid 1.0 (0.5-2.0) mmol/L Calcium 9.2 (8.4-10.2) mg/dL Total Bilirubin 0.4 (0.0-1.0) mg/dL AST 13 (5-37) U/L ALT 25 (0-40) U/L Alkaline Phosphatase 77 (39-117) U/L Troponin I High Sens < 2.7 (<3.5-35.0) ng/L B-Natriuretic Peptide 27 (<100) pg/mL Total Protein 7.0 (6.5-8.0) g/dL Albumin 3.6 (3.5-5.0) g/dL Urine Color Yellow Urine Appearance Clear Urine pH 6.5 (5.0-9.0) Ur Specific [place] 1.015 (1.005-1.025) Urine Protein Negative (Neg-Trace) mg/dL Urine Glucose (UA) Negative (Negative) mg/dL Urine Ketones Negative (Negative) mg/dL Urine Blood Negative (Negative) Urine Nitrite Negative (Negative) Ur Leukocyte Esterase Negative (Negative) Urine Opiates Screen POSITIVE H (Not Detect) Ur Buprenorphine Scrn Not Detected (Not Detect) ng/mL Ur Oxycodone Screen Not Detected (Not Detect) ng/mL Urine Methadone Screen Not Detected (Not Detect) ng/mL Urine Fentanyl Screen POSITIVE H (Not Detect) Ur Barbiturates Screen Not Detected (Not Detect) Ur Phencyclidine Scrn Not Detected (Not Detect) Ur Amphetamines Screen Not Detected (Not Detect) U Benzodiazepines Scrn Not Detected (Not Detect) Urine Cocaine Screen Not Detected (Not Detect) U Marijuana (THC) Screen Not Detected (Not Detect) Independent Interpretation I performed an independent interpretation of an: EKG and Plain X-Ray Radiology Impression Discussion of test interpretation with radiology: I have reviewed the radiologist's reading. Critical Care Time Critical Care Time Critical Care Time: Yes Total Critical Care Time: 35 Attestation: I attest to this time spent taking care of the patient, obtaining history, physical, reviewing labs, imaging, speaking to my attending, specialist or hospitalist. Discharge Plan Discharge Clinical Impression: Opiate misuse, Hypoxia, Bronchitis, Left against medical advice Patient Disposition: Home, Self-Care Instructions: Acute Bronchitis (ED), Against Medical Advice (ED), Hypoxia (ED), Opioid Use Disorder (ED) Additional Instructions: Take your medications as prescribed. If you were prescribed antibiotics today, it is important that you take your medication to their entirety, do not skip any doses, do not finish them early. Follow-up with your primary care provider this week. Return to the emergency department with new or worsening symptoms. Such as fevers, chills, chest pain, shortness of breath, nausea, vomiting, dizziness, headache, vision changes, lethargy In case of emergency call 911 Patient decided to leave against medical advice. I took the time to go over risks of leaving against medical advice including . Patient verbalizes understanding of this. Advised them to come back if they change their mind. Prescriptions: New doxycycline hyclate 100 mg capsule 100 mg PO BID 10 Days Qty: 20 0RF prednisone 20 mg tablet 40 mg PO DAILY 5 Days Qty: 10 0RF albuterol sulfate 90 mcg/actuation aerosol powdr breath activated 2 inh inhalation Q4-6H PRN (Reason: shortness of breath or wheezing) Qty: 1 0RF No Action hydrochlorothiazide 25 mg tablet 25 mg PO QAM Qty: 90 2RF loratadine 10 mg tablet 10 mg PO DAILY 90 Days Qty: 90 2RF fluticasone propionate 50 mcg/actuation spray,suspension 1 spray intranasal Q12H 30 Days Qty: 16 0RF Rx Instructions: administer into each nostril aspirin 81 mg tablet,delayed release (DR/EC) 81 mg PO DAILY Qty: 90 2RF bupropion HCl 300 mg tablet extended release 24 hr 300 mg PO DAILY Qty: 90 2RF ibuprofen 800 mg tablet 800 mg PO BID PRN (Reason: pain) 90 Days Qty: 180 0RF clonazepam 0.5 mg tablet 0.5 mg PO BID PRN (Reason: anxiety) 30 Days Qty: 60 3RF citalopram 40 mg tablet 40 mg PO DAILY Qty: 90 2RF atorvastatin 80 mg tablet 80 mg PO DAILY Qty: 90 2RF trazodone 100 mg tablet 100 mg PO BEDTIME Qty: 90 3RF (DME) blood pressure kit-extra large Kit See Rx Instructions .Route Qty: 1 0RF Rx Instructions: As directed miscellaneous medical supply Misc 1 ea miscellaneous DAILY 99 Days Qty: 2 0RF furosemide [Lasix] 20 mg tablet 20 mg PO Q OTHER DAY 30 Days Qty: 15 0RF (DME) compr.stocking,knee,long,x-lrg Misc See Rx Instructions .Route Qty: 2 0RF Rx Instructions: As directed miscellaneous medical supply Misc See Rx Instructions miscellaneous .COMPLEX Qty: 2 0RF Rx Instructions: bilateral Calf Juxta Fit 30-40mmHg miscellaneous medical supply Misc See Rx Instructions miscellaneous .COMPLEX Qty: 1 0RF Rx Instructions: Custom Bike Shorts albuterol sulfate [Ventolin HFA] 90 mcg/actuation HFA aerosol inhaler 1 inh inhalation QID PRN (Reason: shortness of breath or wheezing) 30 Days Qty: 8.5 3RF Referrals: Leopoldo Rogel MD [Emergency Provider] - 2 days Eliel Jaeger PA-C [Primary Care Provider] - Stand Alone Forms: Against Medical Advice Print Language: Estonian
--- NOTE | 2023-09-05 08:03 | ECG_ITS ---
Test Reason : SOB Blood Pressure : / mmHG Vent. Rate : 099 BPM Atrial Rate : 099 BPM P-R Int : 154 ms QRS Dur : 106 ms QT Int : 350 ms P-R-T Axes : 057 082 029 degrees QTc Int : 449 ms Normal sinus rhythm Normal ECG No previous ECGs available Referred By: Deisi Mittal Electronically Signed By:Austin Serna
[2023-09-05 08:11] LABS: Appearance Urine Clear; Color Urine Yellow; Glucose Urine UA Negative (Negative); Leukocyte Esterase Urine Negative (Negative); Nitrite Urine Negative (Negative); PH 6.5 (5.0-9.0); Specific Gravity - Urine 1.015 (1.005-1.025); Urine Blood Negative (Negative); Urine Ketones Negative (Negative); Urine Protein Negative (Neg-Trace)
--- NOTE | 2023-09-05 08:13 | PC.NURSE ---
patient difficult stick, multiple attempts to obtain blood work, unsuccessful at this time. patient diaphoretic and sweating in room, tylenol given. IV established in left shoulder, unable to obtain blood from site.
[2023-09-05] MEDS: Albuterol Sulfate 2.5 MG, Albuterol/Iprat 2.5/0.5MG 3 ML 3 ML INHALE ×2 (08:23→09:07)
[2023-09-05 08:37] LABS: Amphetamine Screen Urine Not Detected (Not Detect); Barbiturates, Urine Not Detected (Not Detect); Benzodiazepines Screen Urine Not Detected (Not Detect); Buprenorphine Scr Not Detected (Not Detect); Cannabinoid Screen Urine Not Detected (Not Detect); Cocaine Screen Urine Not Detected (Not Detect); Fentanyl, urine POSITIVE (Not Detect); Methadone Screen, Urine Not Detected (Not Detect); Opiate Screen Urine POSITIVE (Not Detect); Oxycodone Screen Urine Not Detected (Not Detect); Phencyclidine Screen Urine Not Detected (Not Detect)
--- NOTE | 2023-09-05 09:53 | PC.NURSE ---
continues to be difficult stick, phlebotomy called for lab draw. patient ambulating independently to bathroom.
--- NOTE | 2023-09-05 10:16 | PC.NURSE ---
attempting finger stick at this time
[2023-09-05 10:43] LABS: MANUAL DIFF FLAG NO
[2023-09-05 10:45] LABS: Basophils Percent Auto 0.4 % (0-2); Eosinophils Absolute Auto 0.1 X10*3/uL (0.0-0.4); Eosinophils Percent Auto 0.6 % (0-4); Hematocrit 31.5 % (42.0-52.0); Hemoglobin 10.6 g/dl (14.0-18.0); Imm Gran Abs Auto 0.05 X10*3/uL (0.00-0.03); Imm Gran Pct Auto 0.6 % (0.0-0.4); Mean Corpuscular HGB Conc 33.7 g/dl (31.0-36.0); Mean Corpuscular Hemoglobin 29.3 pg (27.0-33.0); Mean Platelet Volume 10.5 fL (9.4-12.4); Monocytes Absolute Auto 0.7 X10*3/uL (0.1-1.2); Monocytes Percent Auto 8.4 % (2-11); Neutrophils Absolute Auto 6.5 x10*3/uL (2.0-8.3); Platelet Count 201 X10*3/uL (160-400); Red Blood Count 3.62 X10*6/uL (4.60-5.80); Red Cell Distribution Width 13.3 % (11.0-16.0); White Blood Count 8.4 X10*3/uL (4.8-10.8)
[2023-09-05 10:54] LABS: INTERNATIONAL NORM RATIO 1.2 (0.9-1.1); Prothrombin Time 15.1 SEC (11.1-13.3)
[2023-09-05] MEDS: cefTRIAXone sodium 1 GM in 0.9 % Sodium Chloride 50 ML IV (10:55)
[2023-09-05 11:03] LABS: Alanine Aminotransferase 25 U/L (0-40); Albumin Level 3.6 g/dL (3.5-5.0); Alkaline Phosphatase 77 U/L (39-117); Anion Gap 13 (12-20); Aspartate Amino Transferase 13 U/L (5-37); Bilirubin Total 0.4 mg/dL (0.0-1.0); Blood Urea Nitrogen 8 mg/dL (9-16); Calcium 9.2 mg/dL (8.4-10.2); Carbon Dioxide 26 mmol/L (22-29); Chloride 106 mmol/L (96-108); Creatinine Clr Calc Pharmacy 190.2; Estimated Glomerular Filt Rate > 60; Glucose Random 125 mg/dL (60-115); Potassium 3.8 mmol/L (3.3-5.1); Sodium 141 mmol/L (135-145)
[2023-09-05 11:08] LABS: B Type Natriuretic Peptide 27 pg/mL (<100)
[2023-09-05 11:15] LABS: Troponin-I High Sensitivity < 2.7 ng/L (<3.5-35.0)
--- NOTE | 2023-09-05 11:39 | PC.NURSE ---
patient back from xray, awaiting results at this time. at bedside.
--- NOTE | 2023-09-05 12:07 | PC.NURSE ---
patient aware of leaving AMA, encouraged by provider and this RN on when to return to hospital. patient reports it is his daughters birthday and he is feeling much better and does not wish to stay in hospital. patient verbal agreement of leaving AMA and understanding of risks
== END 2023-09-05 12:09 | disposition home or self-care (01) ==
PROVIDERS: Physician Assistant; Emergency Provider Emergency Medicine; PCP Physician Assistant
DX: J40 Bronchitis, not specified as acute or chronic (principal); R09.02 Hypoxemia; R60.0 Localized edema; R00.0 Tachycardia, unspecified; F19.10 Other psychoactive substance abuse, uncomplicated; R05.9 Cough, unspecified; R06.02 Shortness of breath; F17.210 Nicotine dependence, cigarettes, uncomplicated; Z86.73 Personal history of transient ischemic attack (TIA), and cerebral infarction without residual deficits
CPT/HCPCS: 36415; 71046; 80053; 80307; 81003; 83605; 83880; 84484; 85025; 85610; 87040; 93005; 94640; 99285; J0696

== ENCOUNTER → 2023-09-05 08:03 | Outpatient (BNV) | payer OTHER, SELFPAY | PROVIDERS: Emergency Provider Emergency Medicine; PCP Physician Assistant; Visit Provider Internal Medicine Cardiovascular Disease | DX: R06.02 Shortness of breath (principal) | CPT/HCPCS: 93010 ==

== ENCOUNTER 2023-09-14 14:52 | Outpatient (AMB) | payer OTHER, SELFPAY ==
--- NOTE | 2023-09-14 14:56 | A.OFFPC_ITS ---
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: No Accompanied by: Self / Same As Patient Allergies No Known Allergies Allergy (Verified 09/14/23 15:34) Medication List - Last Reconciled 09/14/23 by Eliel Jaeger PA-C albuterol sulfate 90 mcg/actuation 2 inhalations inhalation Q4-6H PRN albuterol sulfate 90 mcg/actuation (Ventolin HFA) 1 inh inhalation QID PRN 30 days aspirin 81 mg PO DAILY atorvastatin 80 mg PO DAILY blood pressure kit-extra large As directed bupropion HCl XL 300 mg PO DAILY citalopram 40 mg PO DAILY clonazepam 0.5 mg PO BID PRN 30 days compr.stocking,knee,long,x-lrg As directed doxycycline hyclate 100 mg PO BID 10 days furosemide (Lasix) 20 mg PO Q OTHER DAY 30 days hydrochlorothiazide 25 mg PO QAM ibuprofen 800 mg PO BID PRN 90 days loratadine 10 mg PO DAILY 90 days miscellaneous medical supply bilateral Calf Juxta Fit 30-40mmHg miscellaneous medical supply Custom Bike Shorts miscellaneous medical supply 1 ea miscellaneous DAILY 99 days trazodone 100 mg PO BEDTIME Tobacco use date assessed: 09/14/23 Dental Screening Dental Screen Date: 09/14/23 Did you have a dental visit in the last 12 months?: Yes Did you have a dental problem in the last 6 months where you did not have access to dental care?: No Was dental information given to patient?: Patient has dentist HPI F/U Medication HPI Details Patient is a 43-year-old male here today for for follow-up visit.? Patient has a past medical history significant for hypertension, obesity, generalized anxiety disorder, history opiate use disorder, tobacco dependency, GERD. Recently seen at a local urgent care for acute bronchitis pneumonia. Was treated with steroids and antibiotics. He believes his bronchitis happen due to not having his humidity on his CPAP machine. Currently feeling much better. .. lymphedema:? Patient does understand his BMI continues to be above 40.? Has had a lot of trouble losing weight.? He reports he has been following a good diet and has been somewhat active though has not been able to lose weight. He continues to retain water in his extremities which makes it hard for him to get blood draws. Water pills have been somewhat helpful for him. He has seen occupational therapy and has done physical wrappings which have been somewhat helpful though has not been able to maintain the therapy. He does have skin manifestations including hyperpigmentation in his lower extremities and hyperkeratosis over his upper extremities. .. OBESITY: Has struggled losing weight his entire life. Seems to have upper and lower extremity lymphedema. He is interested in starting a GLP 1 to help him with weight reduction. .. Generalized anxiety disorder:? Patient continues on Celexa, bupropion and janis nazepam 0.5 mg b.i.d..? 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 We did discuss the habit-forming nature of benzodiazepines and does understand he needs to continue to wean down his dose. * of note will be flying to [place] for vacation and would like medication to help him with his severe anxiety about flying. .. Tobacco dependency:? Patient does understand he really needs to completely quit smoking.? Has reduced his smoking to 10 cigarettes per day from 1 pack per day.? Has been using nicotine patches and negative trial inhaler. He still finds it very difficult to completely quit smoking as he does have breakthrough withdrawal symptoms. .. HTN :??Blood pressure today in office elevated. Has not been taking hydrochlorothiazide..? PLAN: Will restart hydrochlorothiazide 25 mg. .. CVA:? Suffered a CVA in 2021. Did have some some speech weeks after though has currently now no neurological sequelae. Has followed up with Neurology after having a stroke whom recommended continuing his CPAP machine and smoke cessation..? He continues on baby aspirin and high-dose statin therapy.? Laboratory Tests 07/16/20 12/20/20 09/05/23 10:38 16:14 08:04 RBC Hgb 13.9 L ESR 44 H Creatinine 0.81 0.78 Fasting Glucose 159 H Hemoglobin A1c % 6.0 B-Natriuretic Pept sawyer < 10 Cholesterol 173 LDL Cholesterol, C alc 102 Angiotensin Conver t Enz 90.4 H TSH 0.80 Urine Opiates Scre en POSITIVE H Urine Fentanyl Scr een POSITIVE H 09/05/23 10:38 RBC 3.62 L Hgb 10.6 L ESR Creatinine 0.70 Fasting Glucose Hemoglobin A1c % B-Natriuretic Pept sawyer Cholesterol LDL Cholesterol, C alc Angiotensin Conver t Enz TSH Urine Opiates Scre en Urine Fentanyl Scr een ? PFSH Medical History (Updated 09/14/23 @ 17:00 by Eliel Jaeger PA-C) Smoker Morbid obesity Sarcoid Nocturnal hypoxemia HTN (hypertension) Anxiety ALISON (obstructive sleep apnea) Morbid obesity Depression Surgical History H/O shoulder surgery Family History Mother No problems noted. Father No problems noted. Maternal Grandfather Bone cancer Maternal Aunt Cervical cancer Maternal Grandmother Colon cancer, Onset Age: 89 Social History Housing: House Are you a primary tire care manager to a significant other at home: No Do you presently have visiting nurse or other home services: No Alcohol intake: never Patient Tobacco Use Status: Current everyday Tobacco user Tobacco use type: Cigarette Cigarette Packs Per Day: 1 Cigarettes Per Day: 20 e-Cigarette/Vaping Use: Currently Using service: No Current occupational status: employed Cognitive needs: No Hearing needs: No Vision needs: No Questionnaire PHQ-9 Over the last 2 weeks, how often have you been bothered by any of the following problems? 1. Little interest or pleasure in doing things: not at all 2. Feeling down, depressed, or hopeless: not at all 3. Trouble falling or staying asleep, or sleeping too much: not at all 4. Feeling tired or having little energy: not at all 5. Poor appetite or overeating: not at all 6. Feeling bad about yourself - or that you are a failure or have let yourself or your family down: not at all 7. Trouble concentrating on things, such as reading the newspaper or watching television: not at all 8. Moving or speaking so slowly that other people could have noticed. Or the opposite - being so fidgety or restless that you have been moving around a lot more than usual: not at all 9. Thoughts that you would be better off or of hurting yourself in some way: not at all Total score: 0 Depression Screening Interpretation: Positive Depression Screening Follow-up: Existing condition Depression Screening Done: Yes 89744 - PHQ-9 Billing: Yes Source: Developed by Drs. Nav Staples, Judy Dong, Dre Whitney and colleagues, with an educational mary lou from [employer]. Thrive Questionnaire Date Thrive assessed: 09/14/23 I am a: Patient What is your living situation today?: I have a steady place to live Within the past 12 months, did the food you bought not last and you didn't have the money to get more?: Never true Within the past 12 months, did you worry whether your food would run out before you got money to buy more?: Never true Do you have trouble paying for medicines?: No Do you have trouble getting transportation to medical appointments?: No Do you have trouble paying your heating and electricity bill?: No Do you have trouble taking care of your child, family member or friend?: No Do you have trouble with day-to-day activities such as bathing, preparing meals, shopping, managing finances, etc.?: No Are you currently unemployed and looking for a job?: No Are you interested in more education?: No Please select the resources that you would like help with: None Currently or been in a relationship where the following occur: No concerns reported THRIVE Score: 0 AUDIT C Alcohol Use Questionnaire (AUDIT-C) 1. How often do you have a drink containing alcohol?: Never 3. How often do you have six or more drinks on one occasion?: Never Total Score: 0 JAMEEL-7 AMB Questionnaire JAMEEL-7 Date JAMEEL - 7 assessed: 09/14/23 Feeling nervous, anxious, or on edge: 0 = Not at all Not being able to stop or control worryin = Not at all Worrying too much about different things: 0 = Not at all Trouble relaxin = Not at all Being so restless that it is hard to sit still: 0 = Not at all Becoming easily annoyed or irritable: 0 = Not at all Feeling afraid as if something awful might happen: 0 = Not at all Total JAMEEL-7 score (0-4 normal; 5-9 mild; 10-14 moderate; 15-21 severe): 0 Source: Developed by Drs. Nav Staples, Judy Dong, Dre Whitney and colleagues, with an educational mary lou from [employer]. JAMEEL-7 Assessment Billing JAMEEL-7 Assessment Tool: JAMEEL-7 Assessment 03128 Review of Systems Const Denies headache(s) Eyes Denies loss of vision ENT Denies vertigo, Denies dizziness, Denies headache(s) and Denies sore throat Card Denies chest pain, Denies leg edema and Denies lightheadedness Resp Denies cough, Denies hemoptysis and Denies wheezing GI Denies abdominal pain, Denies melena, Denies constipation, Denies diarrhea and Denies vomiting Denies dysuria, Denies urinary frequency and Denies urinary urgency Musc Denies arthralgias, Denies joint swelling, Denies numbness and Denies tingling Neuro Denies Abnormal speech present, Denies behavioral changes, Denies vertigo, Denies dizziness, Denies headache(s), Denies loss of vision, Denies memory loss, Denies numbness and Denies tingling Psych Denies anxiety, Denies behavioral changes, Denies depression, Denies memory loss and Denies panic attacks Jose Antonio/Lymph Denies easy bleeding and Denies easy bruising Aller/Immun Denies wheezing Physical exam (Primary Care) Vital Signs: Last Vital Signs Pulse 100 09/14/23 15:05 BP 160/94 H 09/14/23 15:05 Pulse Ox 96 09/14/23 15:05 Oxygen Delivery Method Room Air 09/14/23 15:05 BMI result Body Mass Index 44.5 BMI Assessment/Plan discussion: High BMI High, discussed plan: lifestyle, weight reduction, dietary and physical activity Tobacco/Smoking Status: Tobacco use Status Tobacco use date assessed 09/14/23 09/14/23 15:12 Patient Tobacco Use Status Current everyday Tobacco 09/14/23 14:56 Tobacco use type Cigarette 09/14/23 14:56 e-Cigarette/Vaping Use Currently Using 09/14/23 14:56 Are you ready to quit: No Tobacco cessation counseling provided: Yes Items discussed: Nicotine replacement Relapse Prevention: discussed the importance of a supportive environment, discussed negative mood or depression after quitting, weight gain after smoking is common and discussed dietary, exercise and/or lifestyle changes Number of minutes spent counselin CPT code: 38807 - 4-10 Minutes PHQ-9: PHQ-9 Score PHQ-9: Total score 0 09/14/23 17:01 Depression Screening Interpretation: Positive Depression Screening Follow-up: Existing condition Thrive Assessment: Date of Thrive Assessment Date Thrive assessed 09/14/23 09/14/23 15:12 Currently or been in a relationship where the following occur: No concerns reported Const General: healthy appearing, no acute distress, alert and awake Nutritional Appearance: well nourished Orientation/consciousness: oriented to person, oriented to place and oriented to time HENMT Ears: TM's normal bilaterally General nose exam: Normal nasal mucous membranes and turbinates present Eyes Conjunctivae: conjunctivae normal Sclerae: sclerae normal Pupils: Equal, round and reactive pupils present Neck Neck: Yes no lymphadenopathy and Yes no JVD Thyroid: Thyroid normal Carotids: no bruits Resp Effort & Inspection: normal respiratory effort and not tachypneic Auscultation: no crackles, no rales, no rhonchi and no wheezes Cardio Rate: regular rate Rhythm: regular rhythm Heart sounds: no murmurs and normal S1 and S2 GI Palpation (GI): Soft to palpation, nontender, no hepatomegaly and no splenomegaly Auscultation: normal bowel sounds Skin General skin exam: no rashes or lesions noted and dry skin Neuro General: oriented to person, oriented to place and oriented to time Cranial nerves: Yes Equal, round and reactive pupils present Speech: No Abnormal speech present Gait exam (Neuro): Normal gait present Motor exam (neuro): no tremor noted Extrem Other: BILATERAL UPPER EXTREMITIES CIRCUMFERENTIAL MEASUREMENTS: CIRCUMFERENCE FOR FOREARM- 360 CM - CIRCUMFERENCE OF BICEPS 405 CM BILATERAL LOWER EXTREMITIES CIRCUMFERENTIAL MEASUREMENTS: ANKLE: 290 CM GASTROCNEMIUS: 500 CM SKIN MANIFESTATIONS- HAS HYPERPIGMENTATION LOWER EXTREMITIES. NOTED HYPERKERATOSIS LESIONS OVER THE UPPER EXTREMITIES Right upper extremity: full ROM Left upper extremity: full ROM Right lower extremity: full ROM; no edema Left lower extremity: full ROM; no edema Psych Mental Status: mental status grossly normal Speech and movement: Normal speech and movement present Affect: normal affect Attitude: cooperative Thought process: Normal thought process present Assessment and Plan Assessment & Plan (1) HTN (hypertension): Code(s): I10 - Essential (primary) hypertension Qualifiers: Hypertension type: essential hypertension Qualified Code(s): I10 - Essential (primary) hypertension Plan: Blood pressure elevated today in office. He has not been taking hydrochlorothiazide 25 mg. Will restart hydrochlorothiazide and continue monitoring his blood pressure with goal blood pressure to be below 140/90 (2) CVA (cerebral vascular accident): Comment: History of CVA in 2021 Code(s): I63.9 - Cerebral infarction, unspecified Qualifiers: CVA mechanism: embolism Laterality of affected vessel: right Precerebral and cerebral artery: middle cerebral artery Qualified Code(s): I63.411 - Cerebral infarction due to embolism of right middle cerebral artery Plan: Suffers from 2021, has no further neurological deficits. Continues on high potency statin and aspirin therapy daily. (3) Lymphedema: Comment: THIS PATIENT HAS SEVERE LYMPHEDEMA OF HIS UPPER AND LOWER EXTREMITIES. THIS CONTRIBUTES TO HIS MORBID OBESITY. HE IS BEING TREATED IN PHYSICAL THERAPY WITH COMPRESSIVE BANDAGES. Code(s): I89.0 - Lymphedema, not elsewhere classified Plan: Continues to we think is lymphedema on his upper and lower extremities. Has seen occupational therapy and did lymphedema wrappings which were helpful. Has not been able to keep up with the physical wrappings. He is interested in continuing to do home wrappings and compression. PLEASE SEE MEASUREMENTS He has used compression stockings though have not been helpful. He does report he believes that diuretics had been helpful though continues with lymphedema. Will try to establish him with a pneumatic compression device. (4) ALISON (obstructive sleep apnea): Comment: VERY SEVERE ALISON WITH PAST HISTORY OF ALISON FOR 10 YEARS. HE IS ON CPAP WITH AUTO PAP MODE AND PRESSURE SETTING OF 6-20 CM, BECAUSE OF RESIDUAL OBSTRUCTIVE SLEEP APNEA ON AUTO PAP MODE, HE HAD CPAP TITRATION AND STARTED ON BILEVEL PRESSURE OF 27-16 CM. HE WAS INTOLERANT OF THE HIGH PRESSURE. SO ON LAST VISIT THE PRESSURE WAS REDUCED TO 20/15 CM. WITH THIS THE HE CAN KEEP THE CPAP ON FOR MORE THAN 7 HOURS EVERY NIGHT. HE CLAIMS THAT HIS SLEEP IS MUCH BETTER. HOWEVER THERE IS AIR LEAK AND ALSO THERE IS RESIDUAL AHI OF 30. I THINK AIR LEAK MAY BE CONTRIBUTING TO THIS. I INSTRUCTED HIM TO TIGHTEN THE STRAPS AT NIGHT. ENCOURAGED HIM TO CONTINUE USING IT EVERY NIGHT. * HIS SLEEP APNEA IS SUB OPTIMALLY CONTROLLED, BUT I THINK IT IS BETTER THAN NOT USING IT ALL. Code(s): G47.33 - Obstructive sleep apnea (adult) (pediatric) Plan: Patient does have severe obstructive sleep apnea. Followed by pulmonology. Has been compliant with uses CPAP on a nightly basis. (5) Tobacco dependence: Code(s): F17.200 - Nicotine dependence, unspecified, uncomplicated Plan: Patient was counseled on the need to quit smoking. Has found very difficult to quit and was offer nicotine replacement though patient declines. He will continue trying to wean down his cigarette smoking on his. (6) JAMEEL (generalized anxiety disorder): Code(s): F41.1 - Generalized anxiety disorder Plan: Patient's JAMEEL-7 score positive for mild anxiety which has been existing condition for him. He reports his anxiety is fairly well controlled with current dose Celexa and clonazepam 0.5 mg b.i.d.. We did discuss the habit-forming nature of benzodiazepines and patient does understand will try to reduce his dose gradually for the next few years. (7) Morbid obesity: Comment: PATIENT AWARE OF THIS. HE WOULD NEED TO JOIN WEIGHT REDUCTION PROGRAM, HAD A DETAILED DISCUSSION WITH HIM ABOUT THE WEIGHT AND CALORIES INTAKE. HE HAS TO PUT HIMSELF IN IN NEGATIVE BALANCE. IDEALLY HE SHOULD BE IN A WEIGHT MANAGEMENT PROGRAM BUT HE DOES NOT WANT TO JOIN. WILL CONTINUE TO TRY BY HIMSELF. Code(s): E66.01 - Morbid (severe) obesity due to excess calories Plan: He has found very difficult to lose weight. Has changed his lifestyle including his portion control. He is interested in starting GLP 1 to help him with weight reduction. Will start Wegovy 0.25 in the next 4 weeks. Will have patient back to evaluate his weight Medications: New semaglutide (weight loss) (Wegovy) administer weeks 1 through 4 of therapy 0.25 mg (0.5 mL) subcut QWEEK 2 mL 0RF 4 weeks E66.01 - Morbid (severe) obesity due to excess calories, G47.33 - Obstructive sleep apnea (adult) (pediatric), I10 - Essential (primary) hypertension Refilled hydrochlorothiazide 25 mg PO QAM 90 tabs 2RF I10 - Essential (primary) hypertension Discontinued doxycycline hyclate Discontinued Reason: Doctor's Order 100 mg PO BID 10 days 20 caps 0RF Patient Instructions: Goal: Blood pressure to be below 140/90, LDL to optimally be below 70.. STOP SMOKING!! Barriers: Adherence to physical activity and healthy eating habits, availability of cigarettes Coding Level of Care Code Est Pt Level 4 (75978) Complex EM visit Add On G2211 Diagnoses Essential hypertension I10 Hypertension type: essential hypertension Cerebrovascular accident (CVA) due to embolism of right middle cerebral artery I63.411 CVA mechanism: embolism Laterality of affected vessel: right Precerebral and cerebral artery: middle cerebral artery Lymphedema I89.0 ALISON (obstructive sleep apnea) G47.33 Tobacco dependence F17.200 JAMEEL (generalized anxiety disorder) F41.1 Morbid obesity E66.01 Additional Codes JAMEEL-7 Assessment Billing - JAMEEL-7 Assessment Tool: JAMEEL-7 Assessment 97991 ([id number]) Vital Signs *Quality* - CPT code: 44333 - 4-10 Minutes ([id number])
[2023-09-14 15:05] VITALS: BP 160/94; PULSE 100; O2SAT 96; BMI 44.5
== END 2023-09-14 15:56 | disposition home or self-care (01) ==
PROVIDERS: PCP Physician Assistant; Visit Provider Physician Assistant
DX: I10 Essential (primary) hypertension (principal); I63.411 Cerebral infarction due to embolism of right middle cerebral artery; E66.01 Morbid (severe) obesity due to excess calories; Z68.41 Body mass index [BMI] 40.0-44.9, adult; I89.0 Lymphedema, not elsewhere classified; G47.33 Obstructive sleep apnea (adult) (pediatric); F17.200 Nicotine dependence, unspecified, uncomplicated; F41.1 Generalized anxiety disorder
CPT/HCPCS: 99214; G2211

== ENCOUNTER 2023-11-09 11:28 | Outpatient (AMB) | payer OTHER, SELFPAY ==
--- NOTE | 2023-11-09 11:29 | A.OFFPC_ITS ---
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 Accompanied by: Self / Same As Patient Allergies No Known Allergies Allergy (Verified 11/09/23 11:57) Medication List - Last Reconciled 11/09/23 by Eliel Jaeger PA-C albuterol sulfate 90 mcg/actuation 2 inhalations inhalation Q4-6H PRN albuterol sulfate 90 mcg/actuation (Ventolin HFA) 1 inh inhalation QID PRN 30 days aspirin 81 mg PO DAILY atorvastatin 80 mg PO DAILY blood pressure kit-extra large As directed bupropion HCl XL 300 mg PO DAILY citalopram 40 mg PO DAILY clonazepam 0.5 mg PO BID PRN 30 days compr.stocking,knee,long,x-lrg As directed furosemide (Lasix) 20 mg PO Q OTHER DAY 30 days hydrochlorothiazide 25 mg PO QAM ibuprofen 800 mg PO BID PRN 90 days loratadine 10 mg PO DAILY 90 days miscellaneous medical supply bilateral Calf Juxta Fit 30-40mmHg miscellaneous medical supply Custom Bike Shorts miscellaneous medical supply 1 ea miscellaneous DAILY 99 days semaglutide (weight loss) (Wegovy) 0.25 mg (0.5 mL) subcut QWEEK 4 weeks trazodone 100 mg PO BEDTIME Tobacco use date assessed: 09/14/23 Dental Screening Dental Screen Date: 09/14/23 HPI right arm was swollen and red, broken blood vessel HPI Details Patient is a 43-year-old male here today for for follow-up visit.? Patient has a past medical history significant for hypertension, obesity, generalized anxiety disorder, history opiate use disorder, tobacco dependency, GERD. .. lymphedema:? HAD RECENT EPISODE OF ECCHYMOSIS AND INCREASE RIGHT UPPER EXTREMITY SWELLING. HE WAS SEEN AT URGENT CARE WAS TOLD TO USE COMPRESSION SLEEVE. HE DENIED ANY PAIN, RASHES OR ITCHINESS. Patient does understand his BMI continues to be above 40.? Has had a lot of trouble losing weight.? He reports he has been following a good diet and has been somewhat active though has not been able to lose weight. He continues to retain water in his extremities which makes it hard for him to get blood draws. Water pills have been somewhat helpful for him. He has seen occupational therapy and has done physical wrappings which have been somewhat helpful though has not been able to maintain the therapy. He does have skin manifestations including hyperpigmentation in his lower extremities and hyperkeratosis over his upper extremities. Today's see continues to gain weight and his circumference of his extremities are bit larger. .. OBESITY: Has struggled losing weight his entire life. Seems to have upper and lower extremity lymphedema. .. Generalized anxiety disorder:? Patient continues on Celexa, bupropion and clonazepam 0.5 mg b.i.d..? 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 We did discuss the habit-forming nature of benzodiazepines and does understand he needs to continue to wean down his dose. * of note will be flying to [place] for vacation and would like medication to help him with his severe anxiety about flying. [facility] Medical History Smoker Morbid obesity Sarcoid Nocturnal hypoxemia HTN (hypertension) Anxiety ALISON (obstructive sleep apnea) Morbid obesity Depression Surgical History H/O shoulder surgery Family History Mother No problems noted. Father No problems noted. Maternal Grandfather Bone cancer Maternal Aunt Cervical cancer Maternal Grandmother Colon cancer, Onset Age: 89 Social History Housing: House Are you a primary primary health care nurse to a significant other at home: No Do you presently have visiting nurse or other home services: No Alcohol intake: never Patient Tobacco Use Status: Current everyday Tobacco user Tobacco use type: Cigarette Cigarette Packs Per Day: 1 Cigarettes Per Day: 20 e-Cigarette/Vaping Use: Currently Using service: No Current occupational status: employed Cognitive needs: No Hearing needs: No Vision needs: No Questionnaire Thrive Questionnaire Date Thrive assessed: 09/14/23 JAMEEL-7 AMB Questionnaire JAMEEL-7 Date JAMEEL - 7 assessed: 09/14/23 Source: Developed by Drs. Nav Staples, Judy Dong, Dre Whitney and colleagues, with an educational mary lou from [employer]. Review of Systems Const Denies headache(s) Eyes Denies loss of vision ENT Denies vertigo, Denies dizziness, Denies headache(s) and Denies sore throat Card Denies chest pain, Denies leg edema and Denies lightheadedness Resp Denies cough, Denies hemoptysis and Denies wheezing GI Denies abdominal pain, Denies melena, Denies constipation, Denies diarrhea and Denies vomiting Denies dysuria, Denies urinary frequency and Denies urinary urgency Musc Denies arthralgias, Denies joint swelling, Denies numbness and Denies tingling Neuro Denies Abnormal speech present, Denies behavioral changes, Denies vertigo, Denies dizziness, Denies headache(s), Denies loss of vision, Denies memory loss, Denies numbness and Denies tingling Psych Denies anxiety, Denies behavioral changes, Denies depression, Denies memory loss and Denies panic attacks Jose Antonio/Lymph Denies easy bleeding and Denies easy bruising Aller/Immun Denies wheezing Physical exam (Primary Care) Vital Signs: Last Vital Signs Pulse 104 H 11/09/23 11:35 BP 136/76 11/09/23 11:35 Pulse Ox 93 11/09/23 11:35 Oxygen Delivery Method Room Air 11/09/23 11:35 BMI result Body Mass Index 47.0 Tobacco/Smoking Status: Tobacco use Status Tobacco use date assessed 09/14/23 11/09/23 11:30 Patient Tobacco Use Status Current everyday Tobacco 11/09/23 11:30 Tobacco use type Cigarette 11/09/23 11:30 e-Cigarette/Vaping Use Currently Using 11/09/23 11:30 Thrive Assessment: Date of Thrive Assessment Date Thrive assessed 09/14/23 11/09/23 11:30 Const General: healthy appearing, no acute distress, alert and awake Nutritional Appearance: well nourished Orientation/consciousness: oriented to person, oriented to place and oriented to time HENMT Ears: TM's normal bilaterally General nose exam: Normal nasal mucous membranes and turbinates present Eyes Conjunctivae: conjunctivae normal Sclerae: sclerae normal Pupils: Equal, round and reactive pupils present Neck Neck: Yes no lymphadenopathy and Yes no JVD Thyroid: Thyroid normal Carotids: no bruits Resp Effort & Inspection: normal respiratory effort and not tachypneic Auscultation: no crackles, no rales, no rhonchi and no wheezes Cardio Rate: regular rate Rhythm: regular rhythm Heart sounds: no murmurs and normal S1 and S2 GI Palpation (GI): Soft to palpation, nontender, no hepatomegaly and no splenomegaly Auscultation: normal bowel sounds Skin General skin exam: no rashes or lesions noted and dry skin Neuro General: oriented to person, oriented to place and oriented to time Cranial nerves: Yes Equal, round and reactive pupils present Speech: No Abnormal speech present Gait exam (Neuro): Normal gait present Motor exam (neuro): no tremor noted Extrem Other: BILATERAL UPPER EXTREMITIES CIRCUMFERENTIAL MEASUREMENTS: CIRCUMFERENCE FOR FOREARM- September 13--> 36cm - 11/09/23 - 39 CM- CIRCUMFERENCE OF BICEPS September 14 2023- 45 CM-- November 09 2023- 46cm LOWER EXTREMITIES CIRCUMFERENTIAL MEASUREMENTS: ANKLE: 09/14/2023 - 29cm - 11/09/2023 -30cm GASTROCNEMIUS: 09/14/2023- 50 CM- 11/09/2023 53 cm SKIN MANIFESTATIONS- HAS HYPERPIGMENTATION LOWER EXTREMITIES. NOTED HYPERKERATOSIS LESIONS OVER THE UPPER EXTREMITIES Right upper extremity: full ROM Left upper extremity: full ROM Right lower extremity: full ROM and edema Left lower extremity: full ROM and edema Psych Mental Status: mental status grossly normal Speech and movement: Normal speech and movement present Affect: normal affect Attitude: cooperative Thought process: Normal thought process present Assessment and Plan Assessment & Plan (1) Lymphedema: Comment: THIS PATIENT HAS SEVERE LYMPHEDEMA OF HIS UPPER AND LOWER EXTREMITIES. THIS CONTRIBUTES TO HIS MORBID OBESITY. HE IS BEING TREATED IN PHYSICAL THERAPY WITH COMPRESSIVE BANDAGES. Code(s): I89.0 - Lymphedema, not elsewhere classified Plan: Continues to we think is lymphedema on his upper and lower extremities. Has seen occupational therapy and did lymphedema wrappings which were helpful. Has not been able to keep up with the physical wrappings. He is interested in continuing to do home wrappings and compression. PLEASE SEE MEASUREMENTS Will try a higher dose of furosemide 40 mg every other day. He has used compression stockings though have not been helpful. He does report he believes that diuretics had been helpful though continues with lymphedema. Will try to establish him with a pneumatic compression device. (2) ALISON (obstructive sleep apnea): Comment: VERY SEVERE ALISON WITH PAST HISTORY OF ALISON FOR 10 YEARS. HE IS ON CPAP WITH AUTO PAP MODE AND PRESSURE SETTING OF 6-20 CM, BECAUSE OF RESIDUAL OBSTRUCTIVE SLEEP APNEA ON AUTO PAP MODE, HE HAD CPAP TITRATION AND STARTED ON BILEVEL PRESSURE OF 27-16 CM. HE WAS INTOLERANT OF THE HIGH PRESSURE. SO ON LAST VISIT THE PRESSURE WAS REDUCED TO 20/15 CM. WITH THIS THE HE CAN KEEP THE CPAP ON FOR MORE THAN 7 HOURS EVERY NIGHT. HE CLAIMS THAT HIS SLEEP IS MUCH BETTER. HOWEVER THERE IS AIR LEAK AND ALSO THERE IS RESIDUAL AHI OF 30. I THINK AIR LEAK MAY BE CONTRIBUTING TO THIS. I INSTRUCTED HIM TO TIGHTEN THE STRAPS AT NIGHT. ENCOURAGED HIM TO CONTINUE USING IT EVERY NIGHT. * HIS SLEEP APNEA IS SUB OPTIMALLY CONTROLLED, BUT I THINK IT IS BETTER THAN NOT USING IT ALL. Code(s): G47.33 - Obstructive sleep apnea (adult) (pediatric) Plan: Patient does have severe obstructive sleep apnea. Followed by pulmonology. Has been compliant with uses CPAP on a nightly basis. (3) Tobacco dependence: Code(s): F17.200 - Nicotine dependence, unspecified, uncomplicated Plan: Patient was counseled on the need to quit smoking. Has found very difficult to quit and was offer nicotine replacement though patient declines. He will continue trying to wean down his cigarette smoking on his. (4) Morbid obesity: Comment: PATIENT AWARE OF THIS. HE WOULD NEED TO JOIN WEIGHT REDUCTION PROGRAM, HAD A DETAILED DISCUSSION WITH HIM ABOUT THE WEIGHT AND CALORIES INTAKE. HE HAS TO PUT HIMSELF IN IN NEGATIVE BALANCE. IDEALLY HE SHOULD BE IN A WEIGHT MANAGEMENT PROGRAM BUT HE DOES NOT WANT TO JOIN. WILL CONTINUE TO TRY BY HIMSELF. Code(s): E66.01 - Morbid (severe) obesity due to excess calories Plan: Has recently been able to receive Wegovy 0.25 mg. Will start this medication will follow-up in patient in 4 weeks to see if any benefit of weight loss has been achieved. Medications: Changed From furosemide (Lasix) 20 mg PO Q OTHER DAY 30 days 15 tabs 0RF R60.0 - Localized edema To furosemide (Lasix) 40 mg (2 x 20 mg) PO Q OTHER DAY 30 tabs 1RF 30 days R60.0 - Localized edema Coding Level of Care Code Est Pt Level 4 (99023) Diagnoses Lymphedema I89.0 ALISON (obstructive sleep apnea) G47.33 Tobacco dependence F17.200 Morbid obesity E66.01"
[2023-11-09 11:35] VITALS: BP 136/76; PULSE 104; O2SAT 93; BMI 47.0
== END 2023-11-09 12:17 | disposition home or self-care (01) ==
PROVIDERS: PCP Physician Assistant; Visit Provider Physician Assistant
DX: I89.0 Lymphedema, not elsewhere classified (principal); E66.01 Morbid (severe) obesity due to excess calories; Z68.42 Body mass index [BMI] 45.0-49.9, adult; G47.33 Obstructive sleep apnea (adult) (pediatric); F17.200 Nicotine dependence, unspecified, uncomplicated
CPT/HCPCS: 99214

== ENCOUNTER 2023-12-30 15:08 | Outpatient (AMB) | payer OTHER, SELFPAY ==
[2023-12-30 15:15] VITALS: BP 124/76; PULSE 107; O2SAT 95; BMI 44.7
--- NOTE | 2023-12-30 15:15 | A.OFFPC_ITS ---
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 Accompanied by: Self / Same As Patient Allergies No Known Allergies Allergy (Verified 12/30/23 15:19) Medication List - Last Reconciled 12/30/23 by Eliel Jaeger PA-C albuterol sulfate 90 mcg/actuation 2 inhalations inhalation Q4-6H PRN albuterol sulfate 90 mcg/actuation (Ventolin HFA) 1 inh inhalation QID PRN 30 days aspirin 81 mg PO DAILY atorvastatin 80 mg PO DAILY blood pressure kit-extra large As directed bupropion HCl XL 300 mg PO DAILY citalopram 40 mg PO DAILY clonazepam 0.5 mg PO BID PRN 30 days compr.stocking,knee,long,x-lrg As directed furosemide (Lasix) 40 mg (2 x 20 mg) PO Q OTHER DAY 30 days hydrochlorothiazide 25 mg PO QAM ibuprofen 800 mg PO BID PRN 90 days loratadine 10 mg PO DAILY 90 days miscellaneous medical supply bilateral Calf Juxta Fit 30-40mmHg miscellaneous medical supply Custom Bike Shorts miscellaneous medical supply 1 ea miscellaneous DAILY 99 days semaglutide (weight loss) (Wegovy) 0.5 mg (0.5 mL) subcut QWEEK 4 weeks trazodone 100 mg PO BEDTIME Tobacco use date assessed: 09/14/23 Dental Screening Dental Screen Date: 09/14/23 HPI 4 Week F/U 2 HPI0 Details Patient is a 43-year-old male here today for for follow-up visit.? Patient has a past medical history significant for hypertension, obesity, generalized anxiety disorder, history opiate use disorder, tobacco dependency, GERD. Concern--> he has noted skin irritation in his umbilicus. He has also noted a strong odor from the umbilicus. Does have a large umbilical hernia he would like repaired. .. lymphedema:? HAD RECENT EPISODE OF ECCHYMOSIS AND INCREASE RIGHT UPPER EXTREMITY SWELLING. HE WAS SEEN AT URGENT CARE WAS TOLD TO USE COMPRESSION SLEEVE. HE DENIED ANY PAIN, RASHES OR ITCHINESS. Patient does understand his BMI continues to be above 40.? Has had a lot of trouble losing weight.? He reports he has been following a good diet and has been somewhat active though has not been able to lose weight. He continues to retain water in his extremities which makes it hard for him to get blood draws. Water pills have been somewhat helpful for him. He has seen occupational therapy and has done physical wrappings which have been somewhat helpful though has not been able to maintain the therapy. He does have skin manifestations including hyperpigmentation in his lower extremities and hyperkeratosis over his upper extremities. HE HAS ESTABLISH CARE WITH A THERAPIST WHOM IS DOING LYMPHEDEMA DRAINAGE MASSAGE. SINCE INCREASING HIS LASIX DOSE TO 40 MG EVERY OTHER DAY, LYMPHEDEMA OF DRAINAGE MASSAGE AND USING COMPRESSION SOCKS HE HAS LOST WEIGHT. ALSO HE HAS CONTINUE WITH THE USE OF WEGOVY WHICH HAS ALSO HELPED HIM LOSE WEIGHT. .. OBESITY: Has struggled losing weight his entire life. Seems to have upper and lower extremity lymphedema. [facility] Medical History Smoker Morbid obesity Sarcoid Nocturnal hypoxemia HTN (hypertension) Anxiety ALISON (obstructive sleep apnea) Morbid obesity Depression Surgical History H/O shoulder surgery Family History Mother No problems noted. Father No problems noted. Maternal Grandfather Bone cancer Maternal Aunt Cervical cancer Maternal Grandmother Colon cancer, Onset Age: 89 Social History Housing: House Are you a primary care consultant to a significant other at home: No Do you presently have visiting nurse or other home services: No Alcohol intake: never Patient Tobacco Use Status: Current everyday Tobacco user Tobacco use type: Cigarette Cigarette Packs Per Day: 1 Cigarettes Per Day: 20 e-Cigarette/Vaping Use: Currently Using service: No Current occupational status: employed Cognitive needs: No Hearing needs: No Vision needs: No Questionnaire Thrive Questionnaire Date Thrive assessed: 09/14/23 Are you currently unemployed and looking for a job?: No JAMEEL-7 AMB Questionnaire JAMEEL-7 Date JAMEEL - 7 assessed: 09/14/23 Source: Developed by Drs. Nav Staples, Judy Dong, Dre Whitney and colleagues, with an educational mary lou from [email or web address]. Review of Systems Const Denies headache(s) Eyes Denies loss of vision ENT Denies vertigo, Denies dizziness, Denies headache(s) and Denies sore throat Card Denies chest pain, Denies leg edema and Denies lightheadedness Resp Denies cough, Denies hemoptysis and Denies wheezing GI Denies abdominal pain, Denies melena, Denies constipation, Denies diarrhea and Denies vomiting Denies dysuria, Denies urinary frequency and Denies urinary urgency Musc Denies arthralgias, Denies joint swelling, Denies numbness and Denies tingling Neuro Denies Abnormal speech present, Denies behavioral changes, Denies vertigo, Denies dizziness, Denies headache(s), Denies loss of vision, Denies memory loss, Denies numbness and Denies tingling Psych Denies anxiety, Denies behavioral changes, Denies depression, Denies memory loss and Denies panic attacks Jose Antonio/Lymph Denies easy bleeding and Denies easy bruising Aller/Immun Denies wheezing Physical exam (Primary Care) Vital Signs: Last Vital Signs Pulse 107 H 12/30/23 15:15 BP 124/76 12/30/23 15:15 Pulse Ox 95 12/30/23 15:15 Oxygen Delivery Method Room Air 12/30/23 15:15 BMI result Body Mass Index 44.7 Tobacco/Smoking Status: Tobacco use Status Tobacco use date assessed 09/14/23 12/30/23 15:16 Patient Tobacco Use Status Current everyday Tobacco 12/30/23 15:16 Tobacco use type Cigarette 12/30/23 15:16 e-Cigarette/Vaping Use Currently Using 12/30/23 15:16 Are you ready to quit: Yes Tobacco cessation counseling provided: Yes Items discussed: Nicotine replacement Relapse Prevention: discussed the importance of a supportive environment, discussed negative mood or depression after quitting, weight gain after smoking is common and discussed dietary, exercise and/or lifestyle changes Number of minutes spent counselin CPT code: 97187 - 4-10 Minutes Thrive Assessment: Date of Thrive Assessment Date Thrive assessed 09/14/23 12/30/23 15:16 Const General: healthy appearing, no acute distress, alert and awake Nutritional Appearance: well nourished Orientation/consciousness: oriented to person, oriented to place and oriented to time HENMT Ears: TM's normal bilaterally General nose exam: Normal nasal mucous membranes and turbinates present Eyes Conjunctivae: conjunctivae normal Sclerae: sclerae normal Pupils: Equal, round and reactive pupils present Neck Neck: Yes no lymphadenopathy and Yes no JVD Thyroid: Thyroid normal Carotids: no bruits Resp Effort & Inspection: normal respiratory effort and not tachypneic Auscultation: no crackles, no rales, no rhonchi and no wheezes Cardio Rate: regular rate Rhythm: regular rhythm Heart sounds: no murmurs and normal S1 and S2 GI Palpation (GI): Soft to palpation, nontender, no hepatomegaly and no splenomegaly Auscultation: normal bowel sounds Abdomen image: 2 1. NOTED LARGE UMBILICAL MASS. ERYTHEMATOUS SKIN AND SOME MINIMAL PURULENT DRAINAGE NOTED Skin General skin exam: no rashes or lesions noted and dry skin Neuro General: oriented to person, oriented to place and oriented to time Cranial nerves: Yes Equal, round and reactive pupils present Speech: No Abnormal speech present Gait exam (Neuro): Normal gait present Motor exam (neuro): no tremor noted Extrem Right upper extremity: full ROM Left upper extremity: full ROM Right lower extremity: full ROM; no edema Left lower extremity: full ROM; no edema Psych Mental Status: mental status grossly normal Speech and movement: Normal speech and movement present Affect: normal affect Attitude: cooperative Thought process: Normal thought process present Office Procedures Flu Questionnaire Does the patient have a severe egg allergy?: No Immunizations Fluarix Triv [id number] (PF) 45 mcg (15 mcg x 3)/0.5 mL IM syringe Performing Provider: Eliel Jaeger PA-C [place] [facility] [place] Documented (not given) by: ABE Hawkins on 12/30/23 15:17 Reason Not Given: Patient Refused Coding Level of Care Code Est Pt Level 4 (05297) Diagnoses Umbilical hernia without obstruction and without gangrene K42.9 Obstruction and gangrene presence: without obstruction or gangrene Cellulitis, umbilical L03.316 Class 3 obesity E66.813 Tobacco dependence F17.200 Additional Codes Vital Signs *Quality* - CPT code: 21879 - 4-10 Minutes ([id number]) Assessment & Plan Assessment & Plan (1) Umbilical hernia: Code(s): K42.9 - Umbilical hernia without obstruction or gangrene Category: Medical Qualifiers: Obstruction and gangrene presence: without obstruction or gangrene Q ualified Code(s): K42.9 - Umbilical hernia without obstruction or gangrene Plan: As per HPI patient continues to have a quite large umbilical hernia likely secondary to his obesity. He would like to see general surgeon for evaluation and surgical fix. (2) Cellulitis, umbilical: Code(s): L03.316 - Cellulitis of umbilicus Category: Medical Plan: Has noted erythematous skin over his umbilicus and also a order his smell. He does have a large umbilical hernia. Will supply patient with antibiotics. Will refer to general surgeon for a possible surgical fix of his large umbilical hernia. (3) Class 3 obesity: Code(s): E66.813 - Obesity, class 3 Category: Medical Plan: Patient does understand his BMI is over 40 and has had difficult time losing weight. Has started GLP 1 Wegovy and has noted some weight loss. Also increased his Lasix dose and noted some more water weight retention loss. He has been going to a therapist whom he is doing lymphedema drainage massages which has been helpful. He has been wearing his compressions stockings. He is still awaiting did pneumatic compression device to help him with his lymphedema. (4) Tobacco dependence: Code(s): F17.200 - Nicotine dependence, unspecified, uncomplicated Category: Medical Plan: Patient does understand he needs to quit smoking. He has found it very difficult to quit. At this time he feels he is very motivated to quit as his has also quit smoking. Orders: Orders 2 Microalbumin, Random (w Creat) 12/30/23 I10 - Essential (primary) hypertension Lipid Panel 12/30/23 I63.411 - Cerebral infarction due to embolism of right middle cerebral artery Comprehensive [place]. Panel Fast 12/30/23 I10 - Essential (primary) hypertension Influenza [id number] Immunization 12/30/23 Z23 - Encounter for immunization Referrals 2 General Surgery Referral K42.9 - Umbilical hernia without obstruction or gangrene Medications: New 2 amoxicillin-pot clavulanate 875-125 mg 1 tab PO BID 14 tabs 0RF 7 days L03.316 - Cellulitis of umbilicus mupirocin 2% 1 appl topical BID 22 grams 0RF 15 days L03.316 - Cellulitis of umbilicus semaglutide (weight loss) (Wegovy) administer weeks 9 through 12 of therapy 1 mg (0.5 mL) subcut QWEEK 2 mL 0RF 4 weeks E66.01 - Morbid (severe) obesity due to excess calories, Z68.41 - Body mass index [BMI] 40.0-44.9, adult Discontinued 2 semaglutide (weight loss) (Wegovy) administer weeks 5 through 8 of therapy Discontinued Reason: Doctor's Order 0.5 mg (0.5 mL) subcut QWEEK 4 weeks 2 mL 0RF E66.01 - Morbid (severe) obesity due to excess calories, I10 - Essential (primary) hypertension, I63.411 - Cerebral infarction due to embolism of right middle cerebral artery, Z68.41 - Body mass index [BMI] 40.0-44.9, adult
== END 2023-12-30 15:40 | disposition home or self-care (01) ==
PROVIDERS: PCP Physician Assistant; Visit Provider Physician Assistant
DX: K42.9 Umbilical hernia without obstruction or gangrene (principal); L03.316 Cellulitis of umbilicus; E66.813 Obesity, class 3; Z68.41 Body mass index [BMI] 40.0-44.9, adult; F17.210 Nicotine dependence, cigarettes, uncomplicated

== ENCOUNTER → 2023-12-30 15:08 | Outpatient (BNVA) | payer OTHER, SELFPAY | PROVIDERS: PCP Physician Assistant; Visit Provider Physician Assistant | DX: K42.9 Umbilical hernia without obstruction or gangrene (principal); L03.316 Cellulitis of umbilicus; E66.813 Obesity, class 3; F17.200 Nicotine dependence, unspecified, uncomplicated; Z71.6 Tobacco abuse counseling | CPT/HCPCS: 90471; 99212 ==

== ENCOUNTER 2024-01-14 09:04 | Outpatient (AMB) | payer OTHER, SELFPAY ==
--- NOTE | 2024-01-14 09:05 | A.OFFVIS_ITS ---
Vital Signs 01/14/24 09:10 Height 5 ft 10 in Weight 311 lb BMI 44.6 Intake Visit Reasons: Re- discuss umbilical hernia repair Intake Note: This patient presents to re-discuss hernia repair. Pt c/o; reports no changes since last visit. Voice Instructor Required: No Accompanied by: Self / Same As Patient Allergies No Known Allergies Allergy (Verified 01/14/24 09:11) Medication List - Last Reconciled 01/14/24 by Brian Oliva MD albuterol sulfate 90 mcg/actuation 2 inhalations inhalation Q4-6H PRN albuterol sulfate 90 mcg/actuation (Ventolin HFA) 1 inh inhalation QID PRN 30 days amoxicillin-pot clavulanate 875-125 mg 1 tab PO BID 7 days aspirin 81 mg PO DAILY atorvastatin 80 mg PO DAILY blood pressure kit-extra large As directed bupropion HCl XL 300 mg PO DAILY citalopram 40 mg PO DAILY clonazepam 0.5 mg PO BID PRN 30 days compr.stocking,knee,long,x-lrg As directed furosemide (Lasix) 40 mg (2 x 20 mg) PO Q OTHER DAY 30 days hydrochlorothiazide 25 mg PO QAM ibuprofen 800 mg PO BID PRN 90 days loratadine 10 mg PO DAILY 90 days miscellaneous medical supply bilateral Calf Juxta Fit 30-40mmHg miscellaneous medical supply Custom Bike Shorts miscellaneous medical supply 1 ea miscellaneous DAILY 99 days mupirocin 2% 1 appl topical BID 15 days semaglutide (weight loss) (Wegovy) 1 mg (0.5 mL) subcut QWEEK 4 weeks trazodone 100 mg PO BEDTIME HPI HPI Re- discuss umbilical hernia repair: Details: 43-year-old male here for follow-up for his umbilical hernia. I had scheduled him for umbilical hernia repair in 2020. However, at that time, he was in the preop area, he had edema of his extremities and no IV access could be obtained then so the anesthesiologist had postpone the procedure for further workup of his edema . I had seen him in the office in 2021 to reschedule him. At that time, he just had a recent CVA so his umbilical hernia repair procedure was postponed again. He continues to have this umbilical hernia. He describes some periodic redness and skin irritation on the overlying skin. He has multiple medical problems including morbid obesity, lymphedema, smoking history, anxiety, hypertension, and CVA. He also has obstructive sleep apnea. He does not have any residuals from his CVA in 2021. [facility] Medical History Smoker Morbid obesity Sarcoid Nocturnal hypoxemia HTN (hypertension) Anxiety ALISON (obstructive sleep apnea) Morbid obesity Depression Surgical History H/O shoulder surgery Family History Mother No problems noted. Father No problems noted. Maternal Grandfather Bone cancer Maternal Aunt Cervical cancer Maternal Grandmother Colon cancer, Onset Age: 89 Social History Housing: House Are you a primary md do resident urgent care to a significant other at home: No Do you presently have visiting nurse or other home services: No Alcohol intake: never Patient Tobacco Use Status: Current everyday Tobacco user Tobacco use type: Cigarette Cigarette Packs Per Day: 1 Cigarettes Per Day: 20 e-Cigarette/Vaping Use: Currently Using service: No Current occupational status: employed Cognitive needs: No Hearing needs: No Vision needs: No Review of Systems Const Denies chills and Denies fever(s) Card Denies chest pain, Denies dyspnea and Reports dyspnea on exertion Resp Denies cough, Denies dyspnea and Reports dyspnea on exertion GI Denies hematochezia and Denies change in bowel habits Denies hematuria and Denies difficulty urinating Musc Denies back pain and Denies limited range of motion Neuro Denies focal weakness and Denies convulsions Psych Denies depression and Denies mood swings Physical Exam Vital Signs: BMI result Body Mass Index 44.6 Const Other: Morbidly obese General: comfortable and no acute distress Orientation/consciousness: patient oriented x3 Neck Neck: Yes no lymphadenopathy Resp Auscultation: clear to auscultation bilaterally Cardio Rhythm: regular rhythm GI Other: Umbilical hernia, partially reducible, with some skin irritation, hernia about 3 cm in diameter, also with some tenderness Palpation (GI): Soft to palpation, nontender and no guarding Neuro General: patient oriented x3 Assessment & Plan Assessment & Plan (1) Umbilical hernia: Code(s): K42.9 - Umbilical hernia without obstruction or gangrene Category: Medical Qualifiers: Obstruction and gangrene presence: without obstruction or gangrene Qualified Code(s): K42.9 - Umbilical hernia without obstruction or gangrene Plan: He again wants to proceed with umbilical hernia repair in view of symptoms and skin irritation. I reviewed with him the technique of repair of umbilical hernia possible mesh placement. I explained the risks including but not limited to bleeding, infections, bowel injury, recurrence, as well as the benefits and alternatives. He wants to proceed. He does have multiple medical problems as stated above. He is morbidly obese with hypertension, obstructive sleep apnea, active smoking, and is on Wegovy. We will schedule him for preadmission testing . He also has a history of poor IV access and this was 1 of the reasons this procedure was canceled in 2020. His Wegovy will need to be held for a week prior to his procedure Coding Level of Care Code Est Pt Level 4 (97935) Diagnoses Umbilical hernia without obstruction and without gangrene K42.9 Obstruction and gangrene presence: without obstruction or gangrene
[2024-01-14 09:10] VITALS: BMI 44.6
== END 2024-01-14 09:26 | disposition home or self-care (01) ==
PROVIDERS: PCP Physician Assistant; Referring Provider Physician Assistant; Visit Provider Surgery
DX: K42.9 Umbilical hernia without obstruction or gangrene (principal)
CPT/HCPCS: 99214

== ENCOUNTER → 2024-01-14 09:04 | Outpatient (BNVA) | payer OTHER, SELFPAY | PROVIDERS: PCP Physician Assistant; Referring Provider Physician Assistant; Visit Provider Surgery | DX: K42.9 Umbilical hernia without obstruction or gangrene (principal) | CPT/HCPCS: 99212 ==

== ENCOUNTER 2024-01-14 09:36 | Outpatient (REF) | payer OTHER, SELFPAY ==
[2024-01-14 11:07] LABS: Creatinine Urine 21.43 mg/dL; Microalbumin Urine < 5.0 mg/L
[2024-01-14 11:16] LABS: Alanine Aminotransferase 36 U/L (0-40); Albumin Level 4.2 g/dL (3.5-5.0); Alkaline Phosphatase 55 U/L (39-117); Anion Gap 15 (12-20); Aspartate Amino Transferase 40 U/L (5-37); Bilirubin Total 0.3 mg/dL (0.0-1.0); Blood Urea Nitrogen 16 mg/dL (9-16); Calcium 10.1 mg/dL (8.4-10.2); Carbon Dioxide 28 mmol/L (22-29); Chloride 103 mmol/L (96-108); Cholesterol 157 mg/dL (<200); Estimated Glomerular Filt Rate > 60; Glucose Fasting 106 mg/dL (60-99); HDL Cholesterol 43 mg/dL (>40); Potassium 4.5 mmol/L (3.3-5.1); Sodium 141 mmol/L (135-145); Total Protein 7.9 g/dL (6.5-8.0)
[2024-01-14 11:18] LABS: LDL Cholesterol Calculated 44 mg/dL (<100); Triglycerides 352 mg/dL (<150)
== END 2024-01-14 09:37 | disposition home or self-care (01) ==
LOC: HO.LAB 09:36
PROVIDERS: PCP Physician Assistant; Visit Provider Physician Assistant
DX: I10 Essential (primary) hypertension (principal); I63.411 Cerebral infarction due to embolism of right middle cerebral artery
CPT/HCPCS: 36415; 80053; 80061; 82043; 82570

== ENCOUNTER 2024-02-02 16:00 | Outpatient (AMB) | payer OTHER, SELFPAY ==
[2024-02-02 16:06] VITALS: BP 124/80; PULSE 86; O2SAT 92; BMI 44.1
--- NOTE | 2024-02-02 16:06 | MHC.PC.OV ---
Vital Signs 02/02/24 16:06 Height 5 ft 10 in Weight 307 lb 8 oz BMI 44.1 BP 124/80 Blood Pressure Location Lt brachial Position Sitting Pulse 86 Pulse Source Pulse Oximeter Pulse Oximetry (%) 92 Oxygen Delivery Method Room Air Intake Visit Reasons: umbilical hernia repair clearance [place] Management Specialist Required: No Accompanied by: Self / Same As Patient Allergies No Known Allergies Allergy (Verified 02/02/24 16:07) Medication List - Last Reconciled 02/02/24 by Eliel Jaeger PA-C albuterol sulfate 90 mcg/actuation 2 inhalations inhalation Q4-6H PRN albuterol sulfate 90 mcg/actuation (Ventolin HFA) 1 inh inhalation QID PRN 30 days aspirin 81 mg PO DAILY atorvastatin 80 mg PO DAILY blood pressure kit-extra large As directed bupropion HCl XL 300 mg PO DAILY citalopram 40 mg PO DAILY clonazepam 0.5 mg PO BID PRN 30 days compr.stocking,knee,long,x-lrg As directed furosemide (Lasix) 40 mg (2 x 20 mg) PO Q OTHER DAY 30 days hydrochlorothiazide 25 mg PO QAM ibuprofen 800 mg PO BID PRN 90 days loratadine 10 mg PO DAILY 90 days miscellaneous medical supply bilateral Calf Juxta Fit 30-40mmHg miscellaneous medical supply Custom Bike Shorts miscellaneous medical supply 1 ea miscellaneous DAILY 99 days mupirocin 2% 1 appl topical BID 15 days semaglutide (weight loss) (Wegovy) 1 mg (0.5 mL) subcut QWEEK 4 weeks semaglutide (weight loss) (Wegovy) 1.7 mg (0.75 mL) subcut QWEEK 4 weeks trazodone 100 mg PO BEDTIME Tobacco use date assessed: 02/02/24 Dental Screening Dental Screen Date: 09/14/23 HPI umbilical hernia repair clearance HPI Details Patient is a 43-year-old male here today for a preop visit. Patient is due for umbilical hernia surgery.? Patient has a past medical history significant for hypertension, CVA (2021) obesity, generalized anxiety disorder, history opiate use disorder, tobacco dependency, GERD. Patient does not take any anticoagulation therapy. Does take aspirin for history of CVA and can hold aspirin 7 days prior to surgery. Otherwise does not have a history of Congestive heart failure, myocardial infarction. [facility] Medical History Smoker Morbid obesity Sarcoid Nocturnal hypoxemia HTN (hypertension) Anxiety ALISON (obstructive sleep apnea) Morbid obesity Depression Surgical History H/O shoulder surgery Family History Mother No problems noted. Father No problems noted. Maternal Grandfather Bone cancer Maternal Aunt Cervical cancer Maternal Grandmother Colon cancer, Onset Age: 89 Social History Housing: House Are you a primary manager career to a significant other at home: No Do you presently have visiting nurse or other home services: No Alcohol intake: never Patient Tobacco Use Status: Current everyday Tobacco user Tobacco use type: Cigarette Cigarette Packs Per Day: 1 Cigarettes Per Day: 20 e-Cigarette/Vaping Use: Currently Using service: No Current occupational status: employed Cognitive needs: No Hearing needs: No Vision needs: No Questionnaire Thrive Questionnaire Date Thrive assessed: 09/14/23 Are you currently unemployed and looking for a job?: No JAMEEL-7 AMB Questionnaire JAMEEL-7 Date JAMEEL - 7 assessed: 09/14/23 Source: Developed by Drs. Nav Staples, Judy Dong, Dre Whitney and colleagues, with an educational mary lou from [employer]. Physical exam (Primary Care) Vital Signs: Last Vital Signs Pulse 86 02/02/24 16:06 BP 124/80 02/02/24 16:06 Pulse Ox 92 02/02/24 16:06 Oxygen Delivery Method Room Air 02/02/24 16:06 BMI result Body Mass Index 44.1 Tobacco/Smoking Status: Tobacco use Status Tobacco use date assessed 02/02/24 02/02/24 16:08 Patient Tobacco Use Status Current everyday Tobacco 02/02/24 16:08 Tobacco use type Cigarette 02/02/24 16:08 e-Cigarette/Vaping Use Currently Using 02/02/24 16:08 Thrive Assessment: Date of Thrive Assessment Date Thrive assessed 09/14/23 02/02/24 16:08 Coding Level of Care Code Est Pt Level 4 (78048) Diagnoses Pre-op evaluation Z01.818 Umbilical hernia without obstruction and without gangrene K42.9 Obstruction and gangrene presence: without obstruction or gangrene Tobacco dependence F17.200 Assessment & Plan Assessment & Plan (1) Pre-op evaluation: Code(s): Z01.818 - Encounter for other preprocedural examination Category: Medical Plan: Patient's most recent labs and vitals today stable. Most recent EKG showing sinus rhythm new first-degree AV block. Patient is medically clear for needed umbilical hernia repair (2) Umbilical hernia: Code(s): K42.9 - Umbilical hernia without obstruction or gangrene Category: Medical Qualifiers: Obstruction and gangrene presence: without obstruction or gangrene Qualified Code(s): K42.9 - Umbilical hernia without obstruction or gangrene Plan: He is due for umbilical hernia surgery in near future (3) Tobacco dependence: Code(s): F17.200 - Nicotine dependence, unspecified, uncomplicated Category: Medical Plan: He does report cutting down his smoking. Does understand he needs to completely quit. He does have nicotine patches available. Orders: Orders ECG 12 lead EKG 02/02/24 Z01.818 - Encounter for other preprocedural examination Medications: New nicotine 1 patch transdermal DAILY 14 ea 0RF 14 days F17.200 - Nicotine dependence, unspecified, uncomplicated nicotine 1 patch transdermal DAILY 14 ea 0RF 14 days F17.200 - Nicotine dependence, unspecified, uncomplicated Changed From ibuprofen 800 mg PO BID 90 days PRN 180 tabs 0RF pain M25.572 - Pain in left ankle and joints of left foot, M54.50 - Low back pain, unspecified To ibuprofen 800 mg PO BID PRN 60 tabs 0RF pain 30 days M25.572 - Pain in left ankle and joints of left foot, M54.50 - Low back pain, unspecified Refilled furosemide (Lasix) 40 mg (2 x 20 mg) PO Q OTHER DAY 30 tabs 3RF 30 days R60.0 - Localized edema
== END 2024-02-02 16:23 | disposition home or self-care (01) ==
PROVIDERS: PCP Physician Assistant; Visit Provider Physician Assistant
DX: Z01.818 Encounter for other preprocedural examination (principal); K42.9 Umbilical hernia without obstruction or gangrene; F17.200 Nicotine dependence, unspecified, uncomplicated

== ENCOUNTER → 2024-02-02 16:00 | Outpatient (BNVA) | payer OTHER, SELFPAY | PROVIDERS: PCP Physician Assistant; Visit Provider Physician Assistant | DX: Z01.818 Encounter for other preprocedural examination (principal); K42.9 Umbilical hernia without obstruction or gangrene; F17.200 Nicotine dependence, unspecified, uncomplicated; Z71.6 Tobacco abuse counseling | CPT/HCPCS: 99212 ==

== ENCOUNTER → 2024-02-25 11:54 | Outpatient (REF) | payer OTHER, SELFPAY ==
--- NOTE | 2024-02-25 11:58 | ECG_ITS ---
Test Reason : preop Blood Pressure : / mmHG Vent. Rate : 086 BPM Atrial Rate : 086 BPM P-R Int : 214 ms QRS Dur : 110 ms QT Int : 366 ms P-R-T Axes : 058 081 014 degrees QTc Int : 437 ms Sinus rhythm with 1st degree A-V block Otherwise normal ECG When compared with ECG of 05-SEP-2023 08:43, HI interval has increased Referred By: Eliel Jaeger Electronically Signed By:MIKE ALEJO MD
== END ==
LOC: HO.CARD 11:54
PROVIDERS: PCP Physician Assistant; Visit Provider Physician Assistant
DX: Z01.818 Encounter for other preprocedural examination (principal)
CPT/HCPCS: 93005

== ENCOUNTER → 2024-02-25 11:58 | Outpatient (BNV) | payer OTHER, SELFPAY | PROVIDERS: PCP Physician Assistant; Visit Provider Internal Medicine Cardiovascular Disease | DX: I44.0 Atrioventricular block, first degree (principal); Z01.810 Encounter for preprocedural cardiovascular examination | CPT/HCPCS: 93010 ==

== ENCOUNTER 2024-03-31 14:58 | Outpatient (AMB) | payer OTHER, SELFPAY ==
[2024-03-31 15:21] VITALS: BP 130/82; PULSE 70; TEMP 36.3; O2SAT 96; BMI 43.5
--- NOTE | 2024-03-31 15:21 | MHC.PC.OV ---
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 Accompanied by: Self / Same As Patient Allergies No Known Allergies Allergy (Verified 03/31/24 15:34) Medication List - Last Reconciled 03/31/24 by Eliel Jaeger PA-C albuterol sulfate 90 mcg/actuation 2 inhalations inhalation Q4-6H PRN albuterol sulfate 90 mcg/actuation (Ventolin HFA) 1 inh inhalation QID PRN 30 days aspirin 81 mg PO DAILY atorvastatin 80 mg PO DAILY blood pressure kit-extra large As directed bupropion HCl XL 300 mg PO DAILY citalopram 40 mg PO DAILY clonazepam 0.5 mg PO BID PRN 30 days compr.stocking,knee,long,x-lrg As directed famotidine 20 mg PO DAILY 90 days furosemide (Lasix) 40 mg (2 x 20 mg) PO Q OTHER DAY 30 days hydrochlorothiazide 25 mg PO QAM ibuprofen 800 mg PO BID PRN 30 days loratadine 10 mg PO DAILY 90 days miscellaneous medical supply bilateral Calf Juxta Fit 30-40mmHg miscellaneous medical supply Custom Bike Shorts miscellaneous medical supply 1 ea miscellaneous DAILY 99 days mupirocin 2% 1 appl topical BID 15 days nicotine 1 patch transdermal DAILY 14 days nicotine 1 patch transdermal DAILY 14 days semaglutide (weight loss) (Wegovy) 1.7 mg (0.75 mL) subcut QWEEK 4 weeks semaglutide (weight loss) (Wegovy) 2.4 mg (0.75 mL) subcut QWEEK 4 weeks trazodone 100 mg PO BEDTIME Tobacco use date assessed: 03/31/24 Dental Screening Dental Screen Date: 03/31/24 Did you have a dental visit in the last 12 months?: Yes Did you have a dental problem in the last 6 months where you did not have access to dental care?: No Was dental information given to patient?: Patient has dentist HPI OVERDUE for PE HPI Details Patient is a 43-year-old male here today for a routine annual physical.? Patient has a past medical history significant for hypertension, obesity, generalized anxiety disorder, history opiate use disorder, tobacco dependency, GERD. Recently seen at a local urgent care for acute bronchitis pneumonia. Was treated with steroids and antibiotics. He believes his bronchitis happen due to not having his humidity on his CPAP machine. Currently feeling much better. .. Class 3 obesity: Has been started on Wegovy and has lost more than 5% of his total body mass. He reports he feels much better and his lymphedema has also improved. .. lymphedema:? Patient does understand his BMI continues to be above 40.? Has had a lot of trouble losing weight.? He reports he has been following a good diet and has been somewhat active though has not been able to lose weight. He was started on lymphedema pneumatic compression massage which has been helpful on reducing his lymphedematous extremities. He does have skin manifestations including hyperpigmentation in his lower extremities and hyperkeratosis over his upper extremities. .. Umbilical hernia: Has been evaluated by general surgeon and is in need of umbilical hernia repair. He needs Cardiology clearance per Anesthesiology. Most recent EKG showing first-degree AV block. Otherwise patient has good blood pressure control. .. Generalized anxiety disorder:? Patient continues on Celexa, bupropion and clonazepam 0.5 mg b.i.d..? 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 We did discuss the habit-forming nature of benzodiazepines and does understand he needs to continue to wean down his dose. * of note will be flying to [place] for vacation and would like medication to help him with his severe anxiety about flying. .. Tobacco dependency:? Patient does understand he really needs to completely quit smoking.? Has reduced his smoking to 10 cigarettes per day from 1 pack per day.? Has been using nicotine patches and negative trial inhaler. He still finds it very difficult to completely quit smoking as he does have breakthrough withdrawal symptoms. .. HTN :??Blood pressure acceptable today in office. Will continue his current dose of hydrochlorothiazide. .. CVA:? Suffered a CVA in 2021. Did have some some speech weeks after though has currently now no neurological sequelae. Has followed up with Neurology after having a stroke whom recommended continuing his CPAP machine and smoke cessation..? He continues on baby aspirin and high-dose statin therapy.? [facility] Medical History Smoker Morbid obesity Sarcoid Nocturnal hypoxemia HTN (hypertension) Anxiety ALISON (obstructive sleep apnea) Morbid obesity Depression Surgical History H/O shoulder surgery Family History Mother No problems noted. Father No problems noted. Maternal Grandfather Bone cancer Maternal Aunt Cervical cancer Maternal Grandmother Colon cancer, Onset Age: 89 Social History Housing: House Are you a primary career portals teacher to a significant other at home: No Do you presently have visiting nurse or other home services: No Alcohol intake: never Patient Tobacco Use Status: Current everyday Tobacco user Tobacco use type: Cigarette Cigarette Packs Per Day: 1 Cigarettes Per Day: 20 e-Cigarette/Vaping Use: Currently Using service: No Current occupational status: employed Cognitive needs: No Hearing needs: No Vision needs: No Questionnaire PHQ-9 Over the last 2 weeks, how often have you been bothered by any of the following problems? 1. Little interest or pleasure in doing things: not at all 2. Feeling down, depressed, or hopeless: not at all 3. Trouble falling or staying asleep, or sleeping too much: not at all 4. Feeling tired or having little energy: not at all 5. Poor appetite or overeating: not at all 6. Feeling bad about yourself - or that you are a failure or have let yourself or your family down: not at all 7. Trouble concentrating on things, such as reading the newspaper or watching television: not at all 8. Moving or speaking so slowly that other people could have noticed. Or the opposite - being so fidgety or restless that you have been moving around a lot more than usual: not at all 9. Thoughts that you would be better off or of hurting yourself in some way: not at all Total score: 0 Depression Screening Interpretation: Negative Depression Screening Done: Yes 05066 - PHQ-9 Billing: Yes Source: Developed by Drs. Nav Staples, Dre Valero and colleagues, with an educational mary lou from [facility]. Thrive Questionnaire Date Thrive assessed: 03/31/24 I am a: Patient What is your living situation today?: I have a steady place to live Within the past 12 months, did the food you bought not last and you didn't have the money to get more?: Never true Within the past 12 months, did you worry whether your food would run out before you got money to buy more?: Never true Do you have trouble paying for medicines?: No Do you have trouble getting transportation to medical appointments?: No Do you have trouble paying your heating and electricity bill?: No Do you have trouble taking care of your child, family member or friend?: No Do you have trouble with day-to-day activities such as bathing, preparing meals, shopping, managing finances, etc.?: No Are you currently unemployed and looking for a job?: No Are you interested in more education?: No Please select the resources that you would like help with: None Currently or been in a relationship where the following occur: No concerns reported THRIVE Score: 0 AUDIT C Alcohol Use Questionnaire (AUDIT-C) 1. How often do you have a drink containing alcohol?: Never 3. How often do you have six or more drinks on one occasion?: Never Total Score: 0 JAMEEL-7 AMB Questionnaire JAMEEL-7 Date JAMEEL - 7 assessed: 03/31/24 Feeling nervous, anxious, or on edge: 3 = Nearly every day Not being able to stop or control worryin = Several days Worrying too much about different things: 1 = Several days Trouble relaxin = Several days Being so restless that it is hard to sit still: 0 = Not at all Becoming easily annoyed or irritable: 1 = Several days Feeling afraid as if something awful might happen: 0 = Not at all Total JAMEEL-7 score (0-4 normal; 5-9 mild; 10-14 moderate; 15-21 severe): 7 Source: Developed by Drs. Nav Staples, Judy Dong, Dre Whitney and colleagues, with an educational mary lou from [facility]. JAMEEL-7 Assessment Billing JAMEEL-7 Assessment Tool: JAMEEL-7 Assessment 79848 Review of Systems Const Denies headache(s) Eyes Denies loss of vision ENT Denies vertigo, Denies dizziness, Denies headache(s) and Denies sore throat Card Denies chest pain, Denies leg edema and Denies lightheadedness Resp Denies cough, Denies hemoptysis and Denies wheezing GI Denies abdominal pain, Denies melena, Denies constipation, Denies diarrhea and Denies vomiting Denies dysuria, Denies urinary frequency and Denies urinary urgency Musc Denies arthralgias, Denies joint swelling, Denies numbness and Denies tingling Neuro Denies Abnormal speech present, Denies behavioral changes, Denies vertigo, Denies dizziness, Denies headache(s), Denies loss of vision, Denies memory loss, Denies numbness and Denies tingling Psych Denies anxiety, Denies behavioral changes, Denies depression, Denies memory loss and Denies panic attacks Jose Antonio/Lymph Denies easy bleeding and Denies easy bruising Aller/Immun Denies wheezing Physical exam (Primary Care) Vital Signs: Last Vital Signs Temp 97.3 F 03/31/24 15:21 Pulse 70 03/31/24 15:21 BP 130/82 03/31/24 15:21 Pulse Ox 96 03/31/24 15:21 Oxygen Delivery Method Room Air 03/31/24 15:21 BMI result Body Mass Index 43.5 BMI Assessment/Plan discussion: High BMI High, discussed plan: lifestyle, weight reduction, dietary and physical activity Tobacco/Smoking Status: Tobacco use Status Tobacco use date assessed 03/31/24 03/31/24 15:27 Patient Tobacco Use Status Current everyday Tobacco 03/31/24 15:27 Tobacco use type Cigarette 03/31/24 15:27 e-Cigarette/Vaping Use Currently Using 03/31/24 15:27 Are you ready to quit: No Tobacco cessation counseling provided: Yes Items discussed: Nicotine replacement Relapse Prevention: discussed the importance of a supportive environment, discussed negative mood or depression after quitting, weight gain after smoking is common and discussed dietary, exercise and/or lifestyle changes Number of minutes spent counselin CPT code: 78316 - 4-10 Minutes PHQ-9: PHQ-9 Score PHQ-9: Total score 0 03/31/24 15:38 Depression Screening Interpretation: Negative Thrive Assessment: Date of Thrive Assessment Date Thrive assessed 03/31/24 03/31/24 15:27 Currently or been in a relationship where the following occur: No concerns reported Const General: healthy appearing, no acute distress, alert and awake Nutritional Appearance: well nourished Orientation/consciousness: oriented to person, oriented to place and oriented to time HENMT Ears: TM's normal bilaterally General nose exam: Normal nasal mucous membranes and turbinates present Eyes Conjunctivae: conjunctivae normal Sclerae: sclerae normal Pupils: Equal, round and reactive pupils present Neck Neck: Yes no lymphadenopathy and Yes no JVD Thyroid: Thyroid normal Carotids: no bruits Resp Effort & Inspection: normal respiratory effort and not tachypneic Auscultation: no crackles, no rales, no rhonchi and no wheezes Cardio Rate: regular rate Rhythm: regular rhythm Heart sounds: no murmurs and normal S1 and S2 GI Palpation (GI): Soft to palpation, nontender, no hepatomegaly and no splenomegaly Auscultation: normal bowel sounds Skin General skin exam: no rashes or lesions noted and dry skin Neuro General: oriented to person, oriented to place and oriented to time Cranial nerves: Yes Equal, round and reactive pupils present Speech: No Abnormal speech present Gait exam (Neuro): Normal gait present Motor exam (neuro): no tremor noted Extrem Right upper extremity: full ROM Left upper extremity: full ROM Right lower extremity: full ROM; no edema Left lower extremity: full ROM; no edema Psych Mental Status: mental status grossly normal Speech and movement: Normal speech and movement present Affect: normal affect Attitude: cooperative Thought process: Normal thought process present Coding Level of Care Code Est Pt Level 4 (24054) Diagnoses Annual physical exam Z00.00 Class 3 obesity E66.813 Cerebrovascular accident (CVA) due to embolism of right middle cerebral artery I63.411 CVA mechanism: embolism Laterality of affected vessel: right Precerebral and cerebral artery: middle cerebral artery JAMEEL (generalized anxiety disorder) F41.1 Primary hypertension I10 Hypertension type: primary hypertension Tobacco dependence F17.200 Lymphedema I89.0 Additional Codes JAMEEL-7 Assessment Billing - JAMEEL-7 Assessment Tool: JAMEEL-7 Assessment 42695 ([id number]) PHQ-9 - 82640 - PHQ-9 Billing: Yes ([id number]) Vital Signs *Quality* - CPT code: 42828 - 4-10 Minutes ([id number]) Assessment & Plan Assessment & Plan (1) Annual physical exam: Code(s): Z00.00 - Encounter for general adult medical examination without abnormal findings Category: Medical Plan: As per HPI (2) Class 3 obesity: Code(s): E66.813 - Obesity, class 3 Category: Medical Plan: Patient does understand his BMI remains above 40. Has lost 30 lb over the last 6 months, has been on Wegovy though due to insurance coverage he needs to switch to an alternative GLP 1. He reports he feels great now that he has lost some weight. He continues on better eating habits and trying to be more physically active over the last > 6 months. He is also working on mechanical lymphedema treatment at home with pneumatic compression (3) CVA (cerebral vascular accident): Comment: History of CVA in 2021 Code(s): I63.9 - Cerebral infarction, unspecified Category: Medical Qualifiers: CVA mechanism: embolism Laterality of affected vessel: right Precerebral and cerebral artery: middle cerebral artery Qualified Code(s): I63.411 - Cerebral infarction due to embolism of right middle cerebral artery Plan: Suffered a stroke in 2021 no neurological sequelae. He has continues on aspirin and aggressive cholesterol control. (4) JAMEEL (generalized anxiety disorder): Code(s): F41.1 - Generalized anxiety disorder Category: Medical Plan: Patient continues with clonazepam 0.5 mg b.i.d. he feels he has good control over his anxiety with current dose of clonazepam. (5) HTN (hypertension): Code(s): I10 - Essential (primary) hypertension Category: Medical Qualifiers: Hypertension type: primary hypertension Qualified Code(s): I10 - Essential (primary) hypertension Plan: Patient's blood pressure acceptable today in office. Will continue his current dose of hydrochlorothiazide with goal blood pressure to remain below 140/90 (6) Tobacco dependence: Code(s): F17.200 - Nicotine dependence, unspecified, uncomplicated Category: Medical Plan: [place] does understand he needs to quit smoking. He has cut down significantly the amount of he is smoking though still smoking on a daily basis. Has access to nicotine replacement therapy. (7) Lymphedema: Comment: THIS PATIENT HAS SEVERE LYMPHEDEMA OF HIS UPPER AND LOWER EXTREMITIES. THIS CONTRIBUTES TO HIS MORBID OBESITY. HE IS BEING TREATED IN PHYSICAL THERAPY WITH COMPRESSIVE BANDAGES. Code(s): I89.0 - Lymphedema, not elsewhere classified Category: Medical Plan: As per HPI patient has started pneumatic compression machine at home which has been helpful in reducing his lymphedema. Medications: New tirzepatide (weight loss) (Zepbound) for 4 weeks 2.5 mg (0.5 mL) subcut QWEEK 2 mL 0RF 4 weeks E66.813 - Obesity, class 3, I10 - Essential (primary) hypertension, I63.411 - Cerebral infarction due to embolism of right middle cerebral artery Discontinued semaglutide (weight loss) (Wegovy) administer weeks 13 through 16 of therapy Discontinued Reason: Doctor's Order 1.7 mg (0.75 mL) subcut QWEEK 4 weeks 3 mL 0RF E66.813 - Obesity, class 3 semaglutide (weight loss) (Wegovy) Discontinued Reason: Doctor's Order 2.4 mg (0.75 mL) subcut QWEEK 4 weeks 3 mL 3RF E66.813 - Obesity, class 3
== END 2024-03-31 15:53 | disposition home or self-care (01) ==
PROVIDERS: PCP Physician Assistant; Visit Provider Physician Assistant
DX: Z00.00 Encounter for general adult medical examination without abnormal findings (principal); I63.411 Cerebral infarction due to embolism of right middle cerebral artery; E66.813 Obesity, class 3; Z68.41 Body mass index [BMI] 40.0-44.9, adult; F41.1 Generalized anxiety disorder; I89.0 Lymphedema, not elsewhere classified; I10 Essential (primary) hypertension; F17.200 Nicotine dependence, unspecified, uncomplicated

== ENCOUNTER → 2024-03-31 14:58 | Outpatient (BNVA) | payer OTHER, SELFPAY | PROVIDERS: PCP Physician Assistant; Visit Provider Physician Assistant | DX: Z00.00 Encounter for general adult medical examination without abnormal findings (principal); E66.813 Obesity, class 3; I63.411 Cerebral infarction due to embolism of right middle cerebral artery; F41.1 Generalized anxiety disorder; I10 Essential (primary) hypertension; I89.0 Lymphedema, not elsewhere classified; F17.200 Nicotine dependence, unspecified, uncomplicated; Z71.6 Tobacco abuse counseling | CPT/HCPCS: 96127; 99212; 99396 ==

== ENCOUNTER 2024-04-06 14:50 | Outpatient (AMB) | payer OTHER, SELFPAY ==
[2024-04-06 14:59] VITALS: BP 130/64; PULSE 82; BMI 44.0
--- NOTE | 2024-04-06 14:59 | MHC.OFFVIS ---
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: No Accompanied by: Self / Same As Patient Allergies No Known Allergies Allergy (Verified 03/31/24 15:34) Medication List - Last Reconciled 04/06/24 by Austin Serna MD albuterol sulfate 90 mcg/actuation 2 inhalations inhalation Q4-6H PRN albuterol sulfate 90 mcg/actuation (Ventolin HFA) 1 inh inhalation QID PRN 30 days aspirin 81 mg PO DAILY atorvastatin 80 mg PO DAILY blood pressure kit-extra large As directed bupropion HCl XL 300 mg PO DAILY citalopram 40 mg PO DAILY clonazepam 0.5 mg PO BID PRN 30 days compr.stocking,knee,long,x-lrg As directed famotidine 20 mg PO DAILY 90 days furosemide (Lasix) 40 mg (2 x 20 mg) PO Q OTHER DAY 30 days hydrochlorothiazide 25 mg PO QAM ibuprofen 800 mg PO BID PRN 30 days loratadine 10 mg PO DAILY 90 days nicotine 1 patch transdermal DAILY 14 days tirzepatide (weight loss) (Zepbound) 2.5 mg (0.5 mL) subcut QWEEK 4 weeks trazodone 100 mg PO BEDTIME HPI Comments Details: [age] year gentleman who is here for perioperative cardiovascular risk assessment. He was seen 4 years ago when he presented for lower extremity edema and question of congestive heart failure. His echocardiography at that time was normal. Clinically was not in heart failure and we were questioning nephrotic syndrome and he was advised to undergo further workup. He has not seen me back since then. He is now returning because he has a periumbilical hernia and is here for perioperative cardiovascular risk assessment. He is a smoker. He also has psoriasis. He has been using medications for weight loss and is currently taking [place] he has lost approximately 30 lb at this stage. He is trying to exercise and uses a bike for 15 minutes every day. He has been experiencing some chest discomfort off and on. He describes he has indigestion like chest pain off and on. He is unable to tell whether this is clearly exertional or not. PENDING SALE TO [facility] Medical History Smoker Morbid obesity Sarcoid Nocturnal hypoxemia HTN (hypertension) Anxiety ALISON (obstructive sleep apnea) Morbid obesity Depression Surgical History H/O shoulder surgery Family History Mother No problems noted. Father No problems noted. Maternal Grandfather Bone cancer Maternal Aunt Cervical cancer Maternal Grandmother Colon cancer, Onset Age: 89 Social History Housing: House Are you a primary urgent care to a significant other at home: No Do you presently have visiting nurse or other home services: No Alcohol intake: never Patient Tobacco Use Status: Current everyday Tobacco user Tobacco use type: Cigarette Cigarette Packs Per Day: 1 Cigarettes Per Day: 20 e-Cigarette/Vaping Use: Currently Using service: No Current occupational status: employed Cognitive needs: No Hearing needs: No Vision needs: No Review of Systems Const Denies chills, Denies fatigue, Denies fever(s), Denies frequent falls, Denies weakness, Denies weight gain and Denies weight loss ENT Denies dizziness Card Denies chest pain, Denies leg edema, Denies lightheadedness, Denies palpitations, Denies dyspnea, Denies dyspnea on exertion and Denies orthopnea Resp Denies cough, Denies dyspnea and Denies dyspnea on exertion GI Denies bloating and Denies change in bowel habits Musc Denies muscle weakness, Denies numbness and Denies tingling Neuro Denies dizziness, Denies frequent falls, Denies numbness, Denies tingling and Denies weakness Endo Denies fatigue and Denies palpitations Physical Exam Vital Signs: Last Vital Signs Pulse 82 04/06/24 14:59 BP 130/64 04/06/24 14:59 BMI result Body Mass Index 44.0 GENERAL APPEARANCE: in no acute distress, pleasant. NECK: no carotid bruit, no jugular venous distention. SKIN: Psoriasis patches on knees elbows and on hands. HEART: no murmurs, regular rate and rhythm. LUNGS: clear to auscultation bilaterally. ABDOMEN: soft, nontender. EXTREMITIES: no edema. PERIPHERAL PULSES: equal. NEUROLOGIC: No gross deficits, AAO X 3 Office Procedures EKG Details: Sinus rhythm 82 beats per minute, normal axis, nonspecific ST changes, QTC 457 milliseconds. [id number], Complete Assessment & Plan Assessment & Plan (1) Preop cardiovascular exam: Code(s): Z01.810 - Encounter for preprocedural cardiovascular examination Category: Medical Plan [age] gentleman who is here for perioperative cardiovascular risk assessment. He has obesity, tobacco use and psoriasis. He needs periumbilical hernia repair. This appears to be an elective surgery for him because he has no symptoms. He has been experiencing some chest pains off and on. Story is quite vague and he has risk factors for coronary disease. I have advised him to do exercise stress test. As he does the test then we can assess his perioperative risk. Blood pressure well controlled. He is on atorvastatin for hyperlipidemia. He is saying that he is getting regular lipid testing through his primary care physician. Thank you for allowing me to participate in the care of your patient. Please feel free to contact me if you have any questions. Orders: Orders CA stress test Today Z01.810 - Encounter for preprocedural cardiovascular examination Coding Level of Care Code New Pt Level 4 (78679) Diagnoses Preop cardiovascular exam Z01.810 CPT Codes EKG - CPT: 97675-Azoygqduitoexntif, Complete ([id number])
--- OUTSIDE RECORDS SUMMARY | 2024-04-06 17:21 | XMS_ITS | Clinical Summary ---
Author Organization [facility] it Address [address] [place] [address] Care Team Providers Care Headlight Assembler Name Role Phone Eliel Jaeger Primary Care Provider Surgical History Surgery Date Site/Laterality Comments SHOULDER SURGERY PROCEDURE: HISTORICAL SHOULDER SURGERY; COMMENT: 04/25 rotator cuff arthroscopic repear Medical History Medical History Date Comments Anxiety DX:Anxiety Depression DX:Depression GERD (gastroesophageal reflux disease) DX:GERD (gastroesophageal reflux disease) Insomnia DX:Insomnia Degeneration of lumbar or saad mbosacral intervertebral disc DX:Degeneration of lumbar or lumbosacral intervertebral disc Obstructive sleep apnea (miriam lt) (pediatric) DX:Obstructive sleep apnea ( adult) (pediatric) Other psoriasis DX:Other psorias is Pure hyperglyceridemia DX:Pure h yperglyceridemia Sacroiliitis, not elsewhere classified (CMS/HCC) DX:Sacroiliitis, not elsewhe re classified (HCC) History of sarcoidosis 07/13/2017 DX:Histor y of sarcoidosis Family History Medical History Relation Name Comments Alcohol/Drug Father Depression Father Relation Name Status Comments Father Alive Mother Alive Social History Tobacco Use Types Packs/Day Years Used Date Smoking Tobacco: Every Day Cigarettes Smokeless Tobacco: Never Alcohol Use Standard Drinks/Week Comments No 0 (1 standard drink = 0.6 oz pur e alcohol) Sex and Gender Information Value Date Recorded Sex Assigned at Not on file Gender Identity Not on file Sexual Orientation Not on file Obstetrics History Plan of Treatment Health Maintenance Due Date Last Done Comments Pneumococcal Vaccine: Pediat rics (0 to 5 Years) and At-Risk Patients (6 to 64 Years) (1 of 2 - PCV) 1984 Hepatitis B Vaccines (1 of 3 - 19+ 3-dose series) 1997 Cholesterol Screening (Lipid Panel) 02/16/2022 Colorectal Cancer Screening: Colonoscopy 02/16/2022 Depression Screening 02/16/2022 HIV Screening 02/16/2022 Hepatitis C Screening 02/16/2022 Social Influencers of Health Screening 02/16/2022 DTaP,Tdap,and Td Vaccines (2 - Td or Tdap) 03/19/2022 03/19/2012 COVID-19 Vaccine (1 - 2023-2 5 season) 2023 Influenza Vaccine (#1) 2023 HIB Vaccines Aged Out No longer eligi ble based on patient's age to complete this topic HPV Vaccines Aged Out No longer eligi ble based on patient's age to complete this topic Hepatitis A Vaccines Aged Out No long er eligible based on patient's age to complete this topic IPV Vaccines Aged Out No longer eligi ble based on patient's age to complete this topic MMR Vaccines Aged Out No longer eligi ble based on patient's age to complete this topic Meningococcal ACWY Vaccine Aged Out N o longer eligible based on patient's age to complete this topic RSV Immunization Patients Un david 20 months Aged Out No longer eligible b ased on patient's age to complete this topic Varicella Vaccines Aged Out No longer eligible based on patient's age to complete this topic Care Teams Headlight Assembler Relationship Specialty Start Date End Date Eliel Jaeger PA [address] [place] [address] [address] [place] [address] PCP - General Internal Medicine 10/29/21
== END 2024-04-06 15:28 | disposition home or self-care (01) ==
PROVIDERS: PCP Physician Assistant; Visit Provider Internal Medicine Cardiovascular Disease
DX: R94.31 Abnormal electrocardiogram [ECG] [EKG] (principal); Z01.810 Encounter for preprocedural cardiovascular examination
CPT/HCPCS: 93010; 99214

== ENCOUNTER → 2024-04-06 14:50 | Outpatient (BNVA) | payer OTHER, SELFPAY | PROVIDERS: PCP Physician Assistant; Visit Provider Internal Medicine Cardiovascular Disease | DX: Z01.810 Encounter for preprocedural cardiovascular examination (principal); F17.210 Nicotine dependence, cigarettes, uncomplicated | CPT/HCPCS: 93005; 99212 ==

== ENCOUNTER → 2024-04-15 09:11 | Outpatient (REF) | payer OTHER, SELFPAY ==
--- NOTE | 2024-04-15 09:13 | CA_ITS ---
Acquisition Time: 2024-04-15 09:15:14 Total Exercise Time: 00:06:24 Test Indications: CP, PREOP Medications: SEE H&P Protocol: BESSIE Max HR: 151 BPM 86% of Pred: 175 BPM Max BP: 170/44 mmHG Max Work Load: 7.5 METS Exercise Stress Test with exercise 6 mins 24 secs of Bessie Protocol, achieving 85% MPHR, with reports of moderate SOB, no chest discomfort, without any arrythmias, with normotensive response to exercise. Without EKG changes meeting critreia for ischemia, nonspecific ST-T waves at baseline. In recovery, breathing returned to baseline. Test reviewed with Dr. Rey. Referred By: Austin Serna Electronically Signed By: Remington Lambert
--- OUTSIDE RECORDS SUMMARY | 2024-04-15 09:42 | XMS_ITS | Clinical Summary ---
Author Organization [facility] it Address [address] [place] [address] Care Team Providers Care Night Manager Name Role Phone Eliel Jaeger Primary Care [...] age to complete this topic Care Teams Night Manager Relationship Specialty Start Date End Date Eliel Jaeger PA [address] [place] [address] [address] [place] [address] PCP - General Internal Medicine 10/29/21
== END ==
LOC: HO.CARD 09:11
PROVIDERS: PCP Physician Assistant; Visit Provider Internal Medicine Cardiovascular Disease
DX: Z01.810 Encounter for preprocedural cardiovascular examination (principal)
CPT/HCPCS: 93017

== ENCOUNTER 2024-05-17 10:45 | Day surgery (SDC) | payer OTHER, SELFPAY ==
--- OUTSIDE RECORDS SUMMARY | 2024-05-10 16:11 | XMS_ITS | Clinical Summary ---
Author Organization [facility] it Address [address] [place] [address] Care Team Providers Care Railway Patrol Officer Name Role Phone Eliel Jaeger Primary Care Provider [phone] Surgical History Surgery Date Site/Laterality Comments SHOULDER [...] Recorded Sex Assigned at Not on file Legal Sex Male 7:14 AM EST Gender Identity Not on file Sexual Orientation Not on file Obstetrics History Plan of Treatment Health Maintenance Due Date Last Done Comments Hepatitis B Vaccines (1 of 3 - 19+ 3-dose series) 1997 Pneumococcal Vaccine: Pediat rics (0 to 5 Years) and At-Risk Patients (6 to 64 Years) (1 of 2 - PCV) 1997 Cholesterol Screening (Lipid Panel) 02/16/2022 Colorectal [...] patient's age to complete this topic Meningococcal B Vacine Aged Out No lo nger eligible based on patient's age to complete this topic RSV Immunization Patients Un david 20 months Aged Out No longer eligible b ased on patient's age to complete this topic Varicella Vaccines Aged Out No longer eligible based on patient's age to complete this topic Care Teams Railway Patrol Officer Relationship Specialty Start Date End Date Eliel Jaeger PA PCP - General Internal Medicine 10/29/21
[2024-05-12 12:59] VITALS: BMI 40.4
--- NOTE | 2024-05-16 10:05 | HO.ANESPROP2 ---
Documented by User: Dena Naranjo NP 05/16/24 10:17 HPI - Anesthesia Eval Consult details Narrative: 43yo M for Repair Partially Umbilical Reducible Hernia Cardiac optimized per [facility] (nml exercise stress 03/2024) Anesthesia Pre-Procedure Meds Is the patient on any of the following meds?: GLP1/DPP4 PMFSH Active Problems Active Problems: All Active Problems Preop cardiovascular exam (Acute) Annual physical exam (Acute) Pre-op evaluation (Acute) Class 3 obesity (Acute) Cellulitis, umbilical (Acute) Dehydration (Acute) Conjunctivitis (Acute) Sinus infection (Acute) Impaired glucose metabolism (Acute) Anxiety with flying (Acute) Tobacco dependence (Acute) Word finding problem (Acute) CVA (cerebral vascular accident) (Acute) Abnormal serum angiotensin-converting enzyme level (Acute) Obese (Acute) Smoker (Acute) Lymphedema (Acute) GERD (gastroesophageal reflux disease) (Acute) ALISON (obstructive sleep apnea) (Acute) Umbilical hernia (Acute) SOB (shortness of breath) on exertion (Acute) Left ankle sprain (Acute) Left ankle pain (Acute) Fall (Acute) HTN (hypertension) (Acute) Lower extremity edema (Acute) JAMEEL (generalized anxiety disorder) (Acute) Smoker (Acute) HTN (hypertension) (Acute) Depression (Acute) Nocturnal hypoxemia (Acute) Morbid obesity (Acute) Past Medical History Medical History GERD (gastroesophageal reflux disease) Hx of stroke without residual deficits Lymph edema Smoker Morbid obesity Sarcoid Nocturnal hypoxemia HTN (hypertension) Anxiety ALISON (obstructive sleep apnea) Morbid obesity Depression Family History Family History Mother No problems noted. Father No problems noted. Maternal Grandfather Bone cancer Maternal Aunt Cervical cancer Maternal Grandmother Colon cancer, Onset Age: 89 Surgical History Surgical History H/O shoulder surgery Social History Social History Household Members: Spouse Housing: House Are you a primary geriatric personal care aide to a significant other at home: No Do you presently have visiting nurse or other home services: No Alcohol intake: never Patient Tobacco Use Status: Current everyday Tobacco user Tobacco use type: Cigarette Cigarette Packs Per Day: 1 Cigarettes Per Day: 20 e-Cigarette/Vaping Use: Currently Using Use of substances other than those prescribed or required for medical reasons: No Have you been hit, kicked, punched, or otherwise hurt by someone within the past year? If so, by whom?: No Are you DNR?: No Advance Directives: No Advance Directives Information Provided: Yes Advance Directives on File: No Recently lost weight without trying: No Nutrition Risks: No Nutritional Risk Poor oral hygiene: No service: No Current occupational status: employed Cognitive needs: No Hearing needs: No Vision needs: No Meds Allergies Allergy/AdvReac Type Severity Reaction Status Date / Time No Known Allergies Allergy Verified 05/17/24 11:34 Exam Height,Weight and Vital Signs: Height 5 ft 11 in Weight 131.542 kg Pertinent Lab Results Pertinent Lab Results: Laboratory Tests 09/05/23 01/14/24 10:38 09:59 WBC 8.4 Hgb 10.6 L Hct 31.5 L Plt Count 201 Sodium 141 Potassium 4.5 Chloride 103 Carbon Dioxide 28 BUN 16 Creatinine 0.92 Narrative Narrative: EKG 03/2024 Details: Sinus rhythm 82 beats per minute, normal axis, nonspecific ST changes, QTC 457 milliseconds. Exercise stress 03/2024 Acquisition Time: 2024-04-15 09:15:14 Total Exercise Time: 00:06:24 Test Indications: CP, PREOP Medications: SEE H&P Protocol: TIBURCIO Max HR: 151 BPM 86% of Pred: 175 BPM Max BP: 170/44 mmHG Max Work Load: 7.5 METS Exercise Stress Test with exercise 6 mins 24 secs of Tiburcio Protocol, achieving 85% MPHR, with reports of moderate SOB, no chest discomfort, without any arrythmias, with normotensive response to exercise. Without EKG changes meeting critreia for ischemia, nonspecific ST-T waves at baseline. In recovery, breathing returned to baseline. Test reviewed with Dr. Rey. Assessment and Plan Assessment Anesthesia Assessment: Chart Reviewed Documented by User: Janine Barraza MD 05/17/24 12:52 HPI - Anesthesia Eval Anesthesia Pre-Procedure Meds Is the patient on any of the following meds?: GLP1/DPP4 (Last dose of Tirzepatide 05/06/24) If yes to any meds - educate patient: Pt education - increased risk of aspiration and/or euvolemic DKA [facility] Active Problems Active Problems: All Active Problems Preop cardiovascular exam (Acute) Annual physical exam (Acute) Pre-op evaluation (Acute) Class 3 obesity (Acute) Cellulitis, umbilical (Acute) Dehydration (Acute) Conjunctivitis (Acute) Sinus infection (Acute) Impaired glucose metabolism (Acute) Anxiety with flying (Acute) Tobacco dependence (Acute) Word finding problem (Acute) CVA (cerebral vascular accident) (Acute) 2019. Slight Memory loss. Abnormal serum angiotensin-converting enzyme level (Acute) Morbid Obesity (Acute) BMI 40.4 Smoker (Acute)- Last cigarette yesterday night Lymphedema (Acute) GERD (gastroesophageal reflux disease) (Acute) ALISON (obstructive sleep apnea) (Acute)- Uses CPAP machine Umbilical hernia (Acute) SOB (shortness of breath) on exertion (Acute) Left ankle sprain (Acute) Left ankle pain (Acute) Fall (Acute) HTN (hypertension) (Acute) Lower extremity edema (Acute) JAMEEL (generalized anxiety disorder) (Acute) Depression (Acute) Nocturnal hypoxemia (Acute)- not on home oxygen Morbid obesity (Acute) Past Medical History Medical History GERD (gastroesophageal reflux disease) Hx of stroke without residual deficits Lymph edema Smoker Morbid obesity Sarcoid Nocturnal hypoxemia HTN (hypertension) Anxiety ALISON (obstructive sleep apnea) Morbid obesity Depression Family History Family History Mother No problems noted. Father No problems noted. Maternal Grandfather Bone cancer Maternal Aunt Cervical cancer Maternal Grandmother Colon cancer, Onset Age: 89 Family history of problems with anesthesia: No Surgical History Surgical History H/O shoulder surgery History of Problems with Anesthesia: No Social History Social History Household Members: Spouse Housing: House Are you a primary geriatric personal care aide to a significant other at home: No Do you presently have visiting nurse or other home services: No Alcohol intake: never Patient Tobacco Use Status: Current everyday Tobacco user Tobacco use type: Cigarette Cigarette Packs Per Day: 1 Cigarettes Per Day: 20 e-Cigarette/Vaping Use: Currently Using Use of substances other than those prescribed or required for medical reasons: No Have you been hit, kicked, punched, or otherwise hurt by someone within the past year? If so, by whom?: No Are you DNR?: No Advance Directives: No Advance Directives Information Provided: Yes Advance Directives on File: No Recently lost weight without trying: No Nutrition Risks: No Nutritional Risk Poor oral hygiene: No service: No Current occupational status: employed Cognitive needs: No Hearing needs: No Vision needs: No Meds Allergies Allergy/AdvReac Type Severity Reaction Status Date / Time No Known Allergies Allergy Verified 05/17/24 11:34 Exam Height,Weight and Vital Signs: Height 5 ft 11 in Weight 131.542 kg Vital Signs Temp Pulse Resp BP Pulse Ox O2 Del Method 05/17/24 11:32 98.0 F 92 18 166/85 H 96 Room Air Pertinent Lab Results Pertinent Lab Results: Laboratory Tests 09/05/23 01/14/24 10:38 09:59 WBC 8.4 Hgb 10.6 L Hct 31.5 L Plt Count 201 Sodium 141 Potassium 4.5 Chloride 103 Carbon Dioxide 28 BUN 16 Creatinine 0.92 Airway Mallampati Class: III TM Dist: >3cm Neck ROM: Full Loose/Missing/Broken Teeth: Yes (Missing molars, 1 tooth top right, 1 tooth bottom left. Denies broken or loose teeth) Heart: RRR Lungs: CTAB Assessment and Plan Assessment Anesthesia Assessment: Anesthesia Plan Discussed and Chart Reviewed Final Anesthetic Review Family History of Problems with Anesthesia: No History of Problems with Anesthesia: No NPO: Yes ASA Class: III Final Preanesthetic Review: No Changes in Pt Med Stat, Meds/Allgs Chart Reviewed, Consent Obtained/Reviewed and Anes Risks/Benef Reviewed Patient Risk: Intermediate Procedure Risk: Low Assessment/Block/Sedation in SS: Assess/Block/Sedation-SS Anesthetic Plan Anesthetic Plan: GA Disposition: Standard PACU
[2024-05-17] VITALS (9 sets, daily range): BP systolic 109–166; BP diastolic 55–85; PULSE 71–92; RESP 16–18; TEMP 36.2–36.7; O2SAT 96
[2024-05-17] MEDS: Lactated Ringers 1,000 ML 100 ML IVCONT (11:05)
--- NOTE | 2024-05-17 11:48 | MHC.SHP ---
Pre-Procedural Eval Section A - 24 Hr Update-Section A only Date of Service: 05/17/24 Section B - Complete if H&P > 30 days Chief Complaint: Umbilical hernia without obstruction or gangrene Details of Present Illness: He has a reducible umbilical hernia Relevant Family History (Specify if Yes): No Relevant Social History: None Present Medications: see Short Stay Collaborative assessment Medical History: Significant History (Morbid obesity, smoker, GERD, obstructive sleep apnea, hypertension, depression, anxiety) Allergies: Allergies Allergy/AdvReac Type Severity Reaction Status Date / Time No Known Allergies Allergy Verified 05/17/24 11:34 Review of Systems Sugical H&P ROS: Negative: Constitution, Cardiovascular and Respiratory Exam Surgical H&P Exam: Normal: Heart and Normal: Lungs and Significant Findings: Abdomen (Umbilical hernia about 2.5 cm) Plan Diagnosis/Plan: Unchanged I have reviewed the history and physical and performed a pertinent physical examination on my patient. No changes have occurred unless specified. Time Spent With Patient Time: Total time managing care of this patient today ____ minutes.
[2024-05-17] MEDS: ceFAZolin Sodium/Dextrose,Iso 2 GM/50 ML PIGGYBACK IV (12:25)
--- NOTE | 2024-05-17 12:57 | P.OP_ITS ---
Operative Note Operative Note Date of Service: 05/17/24 Narrative: Preop diagnosis: Umbilical hernia Postop diagnosis: Umbilical hernia, partially reducible, with omentum, about 2 cm in diameter Procedure: Repair of umbilical hernia with Ventralex mesh, partial omentectomy Surgeon: Brian Oliva MD family medicine physician assistant: BUDDY Joshua The patient is a 43-year-old male, who had appeared to be a partially reducible hernia umbilicus. He understood the technique of repair with mesh. He was aware of the risks, benefits, and alternatives. He was brought to the operating room. He was placed supine under general anesthesia via endotracheal tube. The abdomen was prepped and draped in the usual sterile fashion. A surgical time-out was done. The patient received cefazolin 2 g IV preoperatively I infiltrated the planned line of incision with lidocaine 1%. I made a tra nsverse curvilinear infraumbilical incision with a blade 15. This carried down with electrocautery through the full-thickness of the skin subcutaneous fat. We then proceeded to gently dissect the umbilicus as a flap using Metzenbaum scissors to lift this off of the fascia. By doing so was able to visualize the hernia. This was all fat containing with omentum. I carefully dissected the adhesions tethering the hernia contents to the fascial edge with Metzenbaum scissors. In view of the large amounts of omentum, I was unable to completely reduce this through the small defect. We therefore had to do partial omentectomy by serially ligating omental fat using Polysorb 2-0 ties and dividing this with scissors. By doing so was able to completely reduce the entire hernia contents The fascial defect was carefully defined. This measured about 2 cm diameter. There were no adherent bowel surrounding the fascial defect. I therefore used a small-sized Ventralex mesh. This was positioned underneath the fascial defect. He was flattened. I secured the Prolene straps of the mesh to the fascial edge on both sides with Prolene 2 sutures. I trimmed the Prolene straps flush on the fascial level I closed the fascia with a [id number]-sm-loyym Maxon 1 stitch The umbilicus was tacked down to the fascia with a Polysorb 3-0 stitch to re- create the dimple. The subcutaneous layer was reapposed with Polysorb 3-0 simple interrupted sutures. Skin closure was achieved with Polysorb 4-0 subcuticular running stitch. The area was infiltrated with Marcaine 0.5% for postop analgesia. Dressings were applied. The procedure was completed The patient tolerated the procedure well. There were no immediate complications. Initial and final counts of sponges and instruments were correct. Estimated blood loss about 10 cc. The patient was extubated without difficulty and transferred to the recovery room with stable vital signs.
[2024-05-17] MEDS: fentaNYL citrate/PF 100 MCG/2 ML VIAL 25 MCG IVPUSH ×3 (13:25→13:35)
[2024-05-17] MEDS: oxyCODONE HCl Immed Release 5 MG TABLET PO (13:35)
== END 2024-05-17 14:21 | disposition home or self-care (01) ==
PROVIDERS: PCP Physician Assistant; Visit Provider Surgery
PROC: (CPT 49591; principal; 2024-05-17 13:40)
DX: K42.9 Umbilical hernia without obstruction or gangrene (principal); I89.0 Lymphedema, not elsewhere classified; I10 Essential (primary) hypertension; D86.9 Sarcoidosis, unspecified; Z86.73 Personal history of transient ischemic attack (TIA), and cerebral infarction without residual deficits; E66.01 Morbid (severe) obesity due to excess calories; Z68.41 Body mass index [BMI] 40.0-44.9, adult; R09.02 Hypoxemia; G47.36 Sleep related hypoventilation in conditions classified elsewhere; G47.33 Obstructive sleep apnea (adult) (pediatric); F32.A Depression, unspecified; F41.9 Anxiety disorder, unspecified; Z79.82 Long term (current) use of aspirin; Z79.1 Long term (current) use of non-steroidal anti-inflammatories (NSAID); Z79.899 Other long term (current) drug therapy; Z79.85 Long-term (current) use of injectable non-insulin antidiabetic drugs; F17.210 Nicotine dependence, cigarettes, uncomplicated
CPT/HCPCS: 49591; 88304; C1781; J0131; J0690; J1100; J2003; J2250; J2405; J2704; J2795; J3010

== ENCOUNTER → 2024-05-17 10:45 | Outpatient (BNV) | payer OTHER, SELFPAY | PROVIDERS: PCP Physician Assistant; Visit Provider Surgery | DX: K42.9 Umbilical hernia without obstruction or gangrene (principal) | CPT/HCPCS: 49591 ==

== ENCOUNTER 2024-05-30 09:57 | Outpatient (AMB) | payer OTHER, SELFPAY ==
--- NOTE | 2024-05-30 09:59 | MHC.OFFVIS ---
Vital Signs 05/30/24 10:05 Height 5 ft 11 in Weight 312 lb 8 oz BMI 43.6 BP 146/71 H Blood Pressure Location Lt brachial Position Sitting Pulse 94 Intake Visit Reasons: S/P umbilical hernia Intake Note: This patient presents for post-op assessment status post Repair of umbilical hernia with Ventralex mesh, partial omentectomy. Pt c/o; admits to a little discomfort when urinating first couple of days post surgery, currently has no issues or concerns Automotive Porter Required: No Accompanied by: Self / Same As Patient Allergies No Known Allergies Allergy (Verified 05/30/24 10:05) HPI HPI S/P umbilical hernia: Details: He underwent repair of an umbilical hernia with mesh, and partial omentectomy, last 05/17/2024. He tolerated procedure well. He currently denies significant complaints. [facility] Medical History GERD (gastroesophageal reflux disease) Hx of stroke without residual deficits Lymph edema Smoker Morbid obesity Sarcoid Nocturnal hypoxemia HTN (hypertension) Anxiety ALISON (obstructive sleep apnea) Morbid obesity Depression Surgical History History of umbilical hernia repair (~05/17/24) H/O shoulder surgery Family History Mother No problems noted. Father No problems noted. Maternal Grandfather Bone cancer Maternal Aunt Cervical cancer Maternal Grandmother Colon cancer, Onset Age: 89 Social History Household Members: Spouse Housing: House Are you a primary skin care instructor to a significant other at home: No Do you presently have visiting nurse or other home services: No Alcohol intake: never Patient Tobacco Use Status: Current everyday Tobacco user Tobacco use type: Cigarette Cigarette Packs Per Day: 1 Cigarettes Per Day: 20 e-Cigarette/Vaping Use: Currently Using service: No Current occupational status: employed Cognitive needs: No Hearing needs: No Vision needs: No Review of Systems Const Denies chills and Denies fever(s) Card Denies chest pain Resp Denies cough GI Denies vomiting Physical Exam Const General: comfortable and no acute distress Nutritional Appearance: obese Resp Effort & Inspection: normal respiratory effort GI Other: Umbilical hernia repair site well healed, not infected Palpation (GI): Soft to palpation and not firm Assessment & Plan Assessment & Plan (1) Umbilical hernia: Code(s): K42.9 - Umbilical hernia without obstruction or gangrene Category: Medical Qualifiers: Obstruction and gangrene presence: without obstruction or gangrene Qualified Code(s): K42.9 - Umbilical hernia without obstruction or gangrene Plan: Status post repair with mesh, partial appendectomy. He is doing well. His incision is well healed. His repair site is intact. I advised him to avoid lifting anything more than 20 lb for at least 3 more weeks. He can otherwise follow up on a p.r.n. basis. Coding Level of Care Code Global (32509) Diagnoses Umbilical hernia without obstruction and without gangrene K42.9 Obstruction and gangrene presence: without obstruction or gangrene
[2024-05-30 10:05] VITALS: BP 146/71; PULSE 94; BMI 43.6
== END 2024-05-30 10:07 | disposition home or self-care (01) ==
LOC: HO.HGS 09:58
PROVIDERS: PCP Physician Assistant; Visit Provider Surgery
DX: K42.9 Umbilical hernia without obstruction or gangrene (principal)
CPT/HCPCS: 99212

== ENCOUNTER → 2024-05-30 09:57 | Outpatient (BNVA) | payer OTHER, SELFPAY | PROVIDERS: PCP Physician Assistant; Visit Provider Surgery | DX: Z09 Encounter for follow-up examination after completed treatment for conditions other than malignant neoplasm (principal); Z98.890 Other specified postprocedural states | CPT/HCPCS: 99212 ==

== ENCOUNTER 2024-06-29 14:51 | Outpatient (AMB) | payer OTHER, SELFPAY ==
[2024-06-29 15:02] VITALS: BP 130/78; PULSE 93; TEMP 36.2; O2SAT 98; BMI 43.1
--- NOTE | 2024-06-29 15:02 | A.OFFPC_ITS ---
Vital Signs 06/29/24 15:02 Height 5 ft 11 in Weight 309 lb 4 oz BMI 43.1 BP 130/78 Blood Pressure Location Lt brachial Position Sitting Pulse 93 Pulse Source Pulse Oximeter Temp 97.1 F Temp Source Temporal Artery Scan Pulse Oximetry (%) 98 Oxygen Delivery Method Room Air Intake Visit Reasons: f/u HTN/ weight check Allergies No Known Allergies Allergy (Verified 06/29/24 15:17) Medication List - Last Reconciled 06/29/24 by Eliel Jaeger PA-C albuterol sulfate 90 mcg/actuation 2 inhalations inhalation Q4-6H PRN albuterol sulfate 90 mcg/actuation (Ventolin HFA) 1 inh inhalation QID PRN 30 days amoxicillin 500 mg PO Q8H 7 days aspirin 81 mg PO DAILY atorvastatin 80 mg PO DAILY blood pressure kit-extra large As directed bupropion HCl XL 300 mg PO DAILY citalopram 40 mg PO DAILY clonazepam 0.5 mg PO BID PRN 30 days compr.stocking,knee,long,x-lrg As directed famotidine 20 mg PO DAILY 90 days furosemide 40 mg (2 x 20 mg) PO Q OTHER DAY hydrochlorothiazide 25 mg PO QAM ibuprofen 600 mg PO Q6H PRN ibuprofen 800 mg PO BID PRN 30 days loratadine 10 mg PO DAILY 90 days nicotine 1 patch transdermal DAILY 14 days tirzepatide (weight loss) (Zepbound) 2.5 mg (0.5 mL) subcut QWEEK 4 weeks trazodone 100 mg PO BEDTIME Tobacco use date assessed: 03/31/24 Dental Screening Dental Screen Date: 03/31/24 HPI f/u HTN/ weight check HPI Details Patient is a 44-year-old male here today for a follow-up visit.? Patient has a past medical history significant for hypertension, obesity, generalized anxiety disorder, history opiate use disorder, tobacco dependency, GERD. .. Class 3 obesity: Has been started on Wegovy and has lost more than 5% of his total body mass. He was doing quite well while on GLP 1. Due to his history of obstructive sleep apnea and using a CPAP machine on a nightly basis will try zepbound to help him reduce his weight and gain some better control or show obstructive sleep apnea and other comorbidities. .. lymphedema:? Patient does understand his BMI continues to be above 40.? Has had a lot of trouble losing weight.? He reports he has been following a good diet and has been somewhat active though has not been able to lose weight. He was started on lymphedema pneumatic compression massage which has been helpful on reducing his lymphedematous extremities. He does have skin manifestations including hyperpigmentation in his lower extremities and hyperkeratosis over his upper extremities. .. Umbilical hernia: Underwent umbilical hernia repair and doing well. .. Generalized anxiety disorder:? Patient continues on Celexa, bupropion and clonazepam 0.5 mg b.i.d..? He reports recently his anxiety has gotten much worse and having panic attacks more often even on medication. He reports there is a lot of personal issues going on at home including a social security fraud issue. He is interested in seeing a psychiatrist for recommendations on medication to control his anxiety. He is also interested in talking to a mental health therapist. PLAN: Will try to set him up with Psychiatry for medication recommendations, will increase his clonazepam to 1 mg b.i.d. for better control of his anxious symptoms and panic attacks. .. Obstructive sleep apnea: Continues to use a CPAP machine on a nightly basis with good effect. He was diagnosed with sleep apnea many many years ago. .. Tobacco dependency:? Patient does understand he really needs to completely quit smoking.? Has reduced his smoking to 10 cigarettes per day from 1 pack per day.? Has been using nicotine patches and negative trial inhaler. He still finds it very difficult to completely quit smoking as he does have breakthrough withdrawal symptoms. .. HTN :??Blood pressure acceptable today in office. Will continue his current dose of hydrochlorothiazide. .. CVA:? Suffered a CVA in 2021. Did have some some speech weeks after though has currently now no neurological sequelae. ? He continues on baby aspirin and high- dose statin therapy.? [facility] Medical History GERD (gastroesophageal reflux disease) Hx of stroke without residual deficits Lymph edema Smoker Morbid obesity Sarcoid Nocturnal hypoxemia HTN (hypertension) Anxiety ALISON (obstructive sleep apnea) Morbid obesity Depression Surgical History History of umbilical hernia repair (~05/17/24) H/O shoulder surgery Family History Mother No problems noted. Father No problems noted. Maternal Grandfather Bone cancer Maternal Aunt Cervical cancer Maternal Grandmother Colon cancer, Onset Age: 89 Social History Household Members: Spouse Housing: House Are you a primary intensive care specialist to a significant other at home: No Do you presently have visiting nurse or other home services: No Alcohol intake: never Patient Tobacco Use Status: Current everyday Tobacco user Tobacco use type: Cigarette Cigarette Packs Per Day: 1 Cigarettes Per Day: 20 e-Cigarette/Vaping Use: Currently Using service: No Current occupational status: employed Cognitive needs: No Hearing needs: No Vision needs: No Questionnaire Thrive Questionnaire Date Thrive assessed: 03/31/24 I am a: Patient What is your living situation today?: I have a steady place to live Within the past 12 months, did the food you bought not last and you didn't have the money to get more?: Never true Within the past 12 months, did you worry whether your food would run out before you got money to buy more?: Never true Do you have trouble paying for medicines?: No Do you have trouble getting transportation to medical appointments?: No Do you have trouble paying your heating and electricity bill?: No Do you have trouble taking care of your child, family member or friend?: No Do you have trouble with day-to-day activities such as bathing, preparing meals, shopping, managing finances, etc.?: No Are you currently unemployed and looking for a job?: No Are you interested in more education?: No Please select the resources that you would like help with: None Currently or been in a relationship where the following occur: No concerns reported THRIVE Score: 0 JAMEEL-7 AMB Questionnaire JAMEEL-7 Date JAMEEL - 7 assessed: 03/31/24 Source: Developed by Drs. Nav Staples, Judy Dong, Dre Whiteny and colleagues, with an educational mary lou from [employer]. Review of Systems Const Denies headache(s) Eyes Denies loss of vision ENT Denies vertigo, Denies dizziness, Denies headache(s) and Denies sore throat Card Denies chest pain, Denies leg edema and Denies lightheadedness Resp Denies cough, Denies hemoptysis and Denies wheezing GI Denies abdominal pain, Denies melena, Denies constipation, Denies diarrhea and Denies vomiting Denies dysuria, Denies urinary frequency and Denies urinary urgency Musc Denies arthralgias, Denies joint swelling, Denies numbness and Denies tingling Neuro Denies Abnormal speech present, Denies behavioral changes, Denies vertigo, Denies dizziness, Denies headache(s), Denies loss of vision, Denies memory loss, Denies numbness and Denies tingling Psych Denies anxiety, Denies behavioral changes, Denies depression, Denies memory loss and Denies panic attacks Jose Antonio/Lymph Denies easy bleeding and Denies easy bruising Aller/Immun Denies wheezing Physical exam (Primary Care) Vital Signs: Last Vital Signs Temp 97.1 F 06/29/24 15:02 Pulse 93 06/29/24 15:02 BP 130/78 06/29/24 15:02 Pulse Ox 98 06/29/24 15:02 Oxygen Delivery Method Room Air 06/29/24 15:02 BMI result Body Mass Index 43.1 BMI Assessment/Plan discussion: High BMI High, discussed plan: lifestyle, weight reduction, dietary and physical activity Tobacco/Smoking Status: Tobacco use Status Tobacco use date assessed 03/31/24 06/29/24 15:03 Patient Tobacco Use Status Current everyday Tobacco 06/29/24 15:03 Tobacco use type Cigarette 06/29/24 15:03 e-Cigarette/Vaping Use Currently Using 06/29/24 15:03 Are you ready to quit: No Tobacco cessation counseling provided: Yes Items discussed: Nicotine replacement Relapse Prevention: discussed the importance of a supportive environment, discussed negative mood or depression after quitting, weight gain after smoking is common and discussed dietary, exercise and/or lifestyle changes Number of minutes spent counselin CPT code: 72638 - 4-10 Minutes Thrive Assessment: Date of Thrive Assessment Date Thrive assessed 03/31/24 06/29/24 15:03 Currently or been in a relationship where the following occur: No concerns reported Const General: healthy appearing, no acute distress, alert and awake Nutritional Appearance: well nourished Orientation/consciousness: oriented to person, oriented to place and oriented to time HENMT Ears: TM's normal bilaterally General nose exam: Normal nasal mucous membranes and turbinates present Eyes Conjunctivae: conjunctivae normal Sclerae: sclerae normal Pupils: Equal, round and reactive pupils present Neck Neck: Yes no lymphadenopathy and Yes no JVD Thyroid: Thyroid normal Carotids: no bruits Resp Effort & Inspection: normal respiratory effort and not tachypneic Auscultation: no crackles, no rales, no rhonchi and no wheezes Cardio Rate: regular rate Rhythm: regular rhythm Heart sounds: no murmurs and normal S1 and S2 GI Palpation (GI): Soft to palpation, nontender, no hepatomegaly and no splenomegaly Auscultation: normal bowel sounds Skin General skin exam: no rashes or lesions noted and dry skin Neuro General: oriented to person, oriented to place and oriented to time Cranial nerves: Yes Equal, round and reactive pupils present Speech: No Abnormal speech present Gait exam (Neuro): Normal gait present Motor exam (neuro): no tremor noted Extrem Right upper extremity: full ROM Left upper extremity: full ROM Right lower extremity: full ROM; no edema Left lower extremity: full ROM; no edema Psych Mental Status: mental status grossly normal Speech and movement: Normal speech and movement present Affect: normal affect Attitude: cooperative Thought process: Normal thought process present Coding Level of Care Code Est Pt Level 4 (27327) Diagnoses JAMEEL (generalized anxiety disorder) F41.1 Class 3 obesity E66.813 Cerebrovascular accident (CVA) due to embolism of right middle cerebral artery I63.411 CVA mechanism: embolism Laterality of affected vessel: right Precerebral and cerebral artery: middle cerebral artery Primary hypertension I10 Hypertension type: primary hypertension Tobacco dependence F17.200 Lymphedema I89.0 ALISON (obstructive sleep apnea) G47.33 Additional Codes Vital Signs *Quality* - CPT code: 87082 - 4-10 Minutes ([id number]) Assessment & Plan Assessment & Plan (1) JAMEEL (generalized anxiety disorder): Code(s): F41.1 - Generalized anxiety disorder Category: Medical Plan: During today's encounter, we discussed the significant challenges the patient is facing with his anxiety and weight concerns post-surgery. We explored the rationale behind adjusting his clonazepam dosage to better control his anxiety symptoms, acknowledging the implications of both increased dosage risk and expected improvement potential. The patient consented to referral to psychiatric services to re-evaluate his current medication and to discuss potential non- pharmacological interventions. (2) Class 3 obesity: Code(s): E66.813 - Obesity, class 3 Category: Medical Plan: Patient does understand his BMI remains above 40. He was able to lose nearly 30 lb when on Wegovy though has had some insurance coverage issues for an alternative GLP 1. While on previous GLP 1 he had noted better eating habits and it increased energy. Medical necessity for GLP 1 (Zepbound)--> patient has comorbidities such as obstructive sleep apnea (on CPAP therapy), class 3 obesity, CVA and hypertension. Did have good response to Wegovy. We anticipate improvement in weight, blood pressure and obstructive sleep apnea symptoms with zepbound (3) CVA (cerebral vascular accident): Comment: History of CVA in 2021 Code(s): I63.9 - Cerebral infarction, unspecified Category: Medical Qualifiers: CVA mechanism: embolism Laterality of affected vessel: right Precerebral and cerebral artery: middle cerebral artery Qualified Code(s): I63.411 - Cerebral infarction due to embolism of right middle cerebral artery Plan: Suffered a stroke in 2021 no neurological sequelae. He has continues on aspirin and aggressive cholesterol control. (4) HTN (hypertension): Code(s): I10 - Essential (primary) hypertension Category: Medical Qualifiers: Hypertension type: primary hypertension Qualified Code(s): I10 - Essential (primary) hypertension Plan: Patient's blood pressure acceptable today in office. Will continue his current dose of hydrochlorothiazide with goal blood pressure to remain below 140/90 (5) Tobacco dependence: Code(s): F17.200 - Nicotine dependence, unspecified, uncomplicated Category: Medical Plan: Franklin does understand he needs to quit smoking. He has cut down significantly the amount of he is smoking though still smoking on a daily basis. Has access to nicotine replacement therapy. (6) Lymphedema: Comment: THIS PATIENT HAS SEVERE LYMPHEDEMA OF HIS UPPER AND LOWER EXTREMITIES. THIS CONTRIBUTES TO HIS MORBID OBESITY. HE IS BEING TREATED IN PHYSICAL THERAPY WITH COMPRESSIVE BANDAGES. Code(s): I89.0 - Lymphedema, not elsewhere classified Category: Medical Plan: As per HPI patient has started pneumatic compression machine at home which has been helpful in reducing his lymphedema. (7) ALISON (obstructive sleep apnea): Comment: VERY SEVERE ALISON WITH PAST HISTORY OF ALISON FOR 10 YEARS. HE IS ON CPAP WITH AUTO PAP MODE AND PRESSURE SETTING OF 6-20 CM, BECAUSE OF RESIDUAL OBSTRUCTIVE SLEEP APNEA ON AUTO PAP MODE, HE HAD CPAP TITRATION AND STARTED ON BILEVEL PRESSURE OF 27-16 CM. HE WAS INTOLERANT OF THE HIGH PRESSURE. SO ON LAST VISIT THE PRESSURE WAS REDUCED TO 20/15 CM. WITH THIS THE HE CAN KEEP THE CPAP ON FOR MORE THAN 7 HOURS EVERY NIGHT. HE CLAIMS THAT HIS SLEEP IS MUCH BETTER. HOWEVER THERE IS AIR LEAK AND ALSO THERE IS RESIDUAL AHI OF 30. I THINK AIR LEAK MAY BE CONTRIBUTING TO THIS. I INSTRUCTED HIM TO TIGHTEN THE STRAPS AT NIGHT. ENCOURAGED HIM TO CONTINUE USING IT EVERY NIGHT. * HIS SLEEP APNEA IS SUB OPTIMALLY CONTROLLED, BUT I THINK IT IS BETTER THAN NOT USING IT ALL. Code(s): G47.33 - Obstructive sleep apnea (adult) (pediatric) Category: Medical Plan: We addressed his obstructive sleep apnea management with the CPAP and the possibilities of insurance coverage for Zepbound under this condition. Orders: Orders Lipid Panel 06/29/24 I63.411 - Cerebral infarction due to embolism of right middle cerebral artery Complete Blood Count no Diff 06/29/24 K21.9 - Gastro-esophageal reflux disease without esophagitis Comprehensive [place]. Panel Fast 06/29/24 I10 - Essential (primary) hypertension Microalbumin, Random (w Creat) 06/29/24 I10 - Essential (primary) hypertension Referrals Psychiatry Outpatient Consultation Service F41.1 - Generalized anxiety disorder Counseling Referral F41.1 - Generalized anxiety disorder Medications: New clonazepam 1 mg PO BID 60 tabs 3RF 30 days F41.1 - Generalized anxiety disorder Refilled tirzepatide (weight loss) (Zepbound) for 4 weeks 2.5 mg (0.5 mL) subcut QWEEK 2 mL 0RF 4 weeks E66.813 - Obesity, class 3, G47.33 - Obstructive sleep apnea (adult) (pediatric) Discontinued albuterol sulfate 90 mcg/actuation (Ventolin HFA) Discontinued Reason: Doctor's Order 1 inh inhalation QID 30 days PRN 8.5 grams 3RF shortness of breath or wheezing F17.200 - Nicotine dependence, unspecified, uncomplicated amoxicillin Discontinued Reason: Doctor's Order 500 mg PO Q8H 7 days 21 tabs 0RF K04.7 - Periapical abscess without sinus On Hold clonazepam Hold Comment: Doctor's Order 0.5 mg PO BID 30 days PRN 60 tabs 3RF anxiety F41.1 - Generalized anxiety disorder
--- OUTSIDE RECORDS SUMMARY | 2024-06-29 17:33 | XMS_ITS | Clinical Summary ---
[facility] Organization [facility] it Address [address] [place] [address] Care Team Providers Care Film Casting Operator Name Role Phone Eliel Jaeger Primary Care [...] DX:Pure h yperglyceridemia Sacroiliitis, not elsewhere classified (CMS/HCC V24) DX:Sacroiliitis, not elsewhe re classified ([facility]) History of sarcoidosis 07/13/2017 DX:Histor y of [...] Td or Tdap) 03/19/2022 03/19/2012 COVID-19 Vaccine ( - 2023-2 5 season) 2023 Influenza Vaccine (Season Ended) 2024 HIB Vaccines Aged Out No longer eligi [...] age to complete this topic Meningococcal B Vaccine Aged Out No l onger eligible based on patient's age to complete this topic RSV Immunization Patients Un david 20 months Aged Out No longer eligible b ased on patient's age to complete this topic Varicella Vaccines Aged Out No longer eligible based on patient's age to complete this topic Care Teams Film Casting Operator Relationship Specialty Start Date End Date Eliel Jaeger PA PCP - General Internal Medicine 10/29/21
== END 2024-06-29 15:40 | disposition home or self-care (01) ==
LOC: HO.HMCH 14:51
PROVIDERS: PCP Physician Assistant; Visit Provider Physician Assistant
DX: F41.1 Generalized anxiety disorder (principal); E66.813 Obesity, class 3; I63.411 Cerebral infarction due to embolism of right middle cerebral artery; Z68.41 Body mass index [BMI] 40.0-44.9, adult; I10 Essential (primary) hypertension; F17.200 Nicotine dependence, unspecified, uncomplicated; I89.0 Lymphedema, not elsewhere classified; G47.33 Obstructive sleep apnea (adult) (pediatric)

== ENCOUNTER → 2024-06-29 14:51 | Outpatient (BNVA) | payer OTHER, SELFPAY | PROVIDERS: PCP Physician Assistant; Visit Provider Physician Assistant | DX: I10 Essential (primary) hypertension (principal); F41.1 Generalized anxiety disorder; G47.33 Obstructive sleep apnea (adult) (pediatric); E66.813 Obesity, class 3; Z68.41 Body mass index [BMI] 40.0-44.9, adult; I89.0 Lymphedema, not elsewhere classified; F17.200 Nicotine dependence, unspecified, uncomplicated; Z86.73 Personal history of transient ischemic attack (TIA), and cerebral infarction without residual deficits; Z79.82 Long term (current) use of aspirin; Z79.899 Other long term (current) drug therapy | CPT/HCPCS: 99212 ==

== ENCOUNTER 2024-07-20 14:49 | Outpatient (AMB) | payer OTHER, SELFPAY ==
--- NOTE | 2024-07-20 15:18 | A.OFFVIS_ITS ---
Vital Signs 07/20/24 15:20 Height 5 ft 11 in Weight 320 lb 1.779 oz BMI 44.6 BP 120/72 Blood Pressure Location Lt brachial Position Sitting Pulse 85 Pulse Source Pulse Oximeter Intake Visit Reasons: 3m follow up Intake Note: 3 mth f/up Freelance Makeup Artist Required: No Accompanied by: Self / Same As Patient Allergies No Known Allergies Allergy (Verified 06/29/24 15:17) Medication List - Last Reconciled 07/20/24 by Austin Serna MD albuterol sulfate 90 mcg/actuation 2 inhalations inhalation Q4-6H PRN aspirin 81 mg PO DAILY atorvastatin 80 mg PO DAILY blood pressure kit-extra large As directed bupropion HCl XL 300 mg PO DAILY citalopram 40 mg PO DAILY clonazepam 0.5 mg PO BID PRN 30 days clonazepam 1 mg PO BID 30 days compr.stocking,knee,long,x-lrg As directed famotidine 20 mg PO DAILY 90 days furosemide 40 mg (2 x 20 mg) PO Q OTHER DAY hydrochlorothiazide 25 mg PO QAM ibuprofen 600 mg PO Q6H PRN ibuprofen 800 mg PO BID PRN 30 days loratadine 10 mg PO DAILY 90 days nicotine 1 patch transdermal DAILY 14 days tirzepatide (weight loss) (Zepbound) 2.5 mg (0.5 mL) subcut QWEEK 4 weeks trazodone 100 mg PO BEDTIME HPI Comments Details: 44-year-old gentleman who is here for perioperative cardiovascular risk assessment. He was seen 4 years ago when he presented for lower extremity edema and question of congestive heart failure. His echocardiography at that time was normal. Clinically was not in heart failure and we were questioning nephrotic syndrome and he was advised to undergo further workup. He has not seen me back since then. He is now returning because he has a periumbilical hernia and is here for perioperative cardiovascular risk assessment. He is a smoker. He also has psoriasis. He has been using medications for weight loss and is currently taking [place] he has lost approximately 30 lb at this stage. He is trying to exercise and uses a bike for 15 minutes every day. He has been experiencing some chest discomfort off and on. He describes he has indigestion like chest pain off and on. He is unable to tell whether this is clearly exertional or not. 07/20/2024: he is here for follow-up. He underwent hernia surgery and has recovered from that. He continues 1 pack per day. He has peripheral edema and dyspnea on exertion. Denying any chest discomfort. His brother is 40 years old and had 4 PA after getting COVID-19 vaccine. Franklin had a stroke after taking COVID-19 vaccine. [facility] Medical History GERD (gastroesophageal reflux disease) Hx of stroke without residual deficits Lymph edema Smoker Morbid obesity Sarcoid Nocturnal hypoxemia HTN (hypertension) Anxiety ALISON (obstructive sleep apnea) Morbid obesity Depression Surgical History History of umbilical hernia repair (~05/17/24) H/O shoulder surgery Family History Mother No problems noted. Father No problems noted. Maternal Grandfather Bone cancer Maternal Aunt Cervical cancer Maternal Grandmother Colon cancer, Onset Age: 89 Social History Household Members: Spouse Housing: House Are you a primary zoo caretaker to a significant other at home: No Do you presently have visiting nurse or other home services: No Alcohol intake: never Patient Tobacco Use Status: Current everyday Tobacco user Tobacco use type: Cigarette Cigarette Packs Per Day: 1 Cigarettes Per Day: 20 e-Cigarette/Vaping Use: Currently Using service: No Current occupational status: employed Cognitive needs: No Hearing needs: No Vision needs: No Review of Systems Const Denies chills, Denies fatigue, Denies fever(s), Denies frequent falls, Denies weakness, Denies weight gain and Denies weight loss ENT Denies dizziness Card Denies chest pain, Denies leg edema, Denies lightheadedness, Denies palpitations, Denies dyspnea and Denies dyspnea on exertion Resp Denies cough, Denies dyspnea and Denies dyspnea on exertion GI Denies hematochezia Musc Denies abnormal gait, Denies muscle weakness, Denies numbness, Denies radiating pain into limb and Denies tingling Neuro Denies abnormal gait, Denies dizziness, Denies frequent falls, Denies numbness, Denies tingling and Denies weakness Endo Denies fatigue and Denies palpitations Physical Exam Vital Signs: Last Vital Signs Pulse 85 07/20/24 15:20 BP 120/72 07/20/24 15:20 BMI result Body Mass Index 44.6 GENERAL APPEARANCE: in no acute distress, pleasant. NECK: no carotid bruit, no jugular venous distention. SKIN: Psoriasis patches on knees elbows and on hands. HEART: no murmurs, regular rate and rhythm. LUNGS: clear to auscultation bilaterally. ABDOMEN: soft, nontender. EXTREMITIES: no edema. PERIPHERAL PULSES: equal. NEUROLOGIC: No gross deficits, AAO X 3 Assessment & Plan Assessment & Plan (1) HTN (hypertension): Code(s): I10 - Essential (primary) hypertension Category: Medical Qualifiers: Hypertension type: primary hypertension Qualified Code(s): I10 - Essential (primary) hypertension (2) SOB (shortness of breath) on exertion: Code(s): R06.02 - Shortness of breath Category: Medical Plan 24 year gentleman who is here for follow-up. He was seen originally for perioperative cardiovascular risk assessment underwent stress testing where he was able to exercise more than 4 metabolic equivalents and was cleared for surgery. He is now status post hernia repair. He is obese, smoker, his brother 40 years old had PA and he has been experiencing some shortness of breath with activities. He during stress testing also has shortness of breath. He is an active smoker and is smoking 1 pack per day. We discussed about smoking cessation and potential benefits to him at a young age. We have discussed about doing further workup and I am arranging echocardiography as well as CT coronary angiogram for him. He will see us back after the above testing has been done. If any obvious abnormalities noted then we will accordingly devise a management plan. Thank you for allowing me to participate in the care of your patient. Please feel free to contact me if you have any questions. Orders: Orders CA echo transthorac w con Today R06.02 - Shortness of breath CT Cardiac Coronary Angio Today R06.02 - Shortness of breath Coding Level of Care Code Est Pt Level 4 (30783) Diagnoses Primary hypertension I10 Hypertension type: primary hypertension SOB (shortness of breath) on exertion R06.02
[2024-07-20 15:20] VITALS: BP 120/72; PULSE 85; BMI 44.6
== END 2024-07-20 16:06 | disposition home or self-care (01) ==
LOC: HO.HCS 14:50
PROVIDERS: PCP Physician Assistant; Visit Provider Internal Medicine Cardiovascular Disease
DX: I10 Essential (primary) hypertension (principal); R06.02 Shortness of breath
CPT/HCPCS: 99214

== ENCOUNTER → 2024-07-20 14:49 | Outpatient (BNVA) | payer OTHER, SELFPAY | PROVIDERS: PCP Physician Assistant; Visit Provider Internal Medicine Cardiovascular Disease | DX: I10 Essential (primary) hypertension (principal); R06.02 Shortness of breath; F17.210 Nicotine dependence, cigarettes, uncomplicated | CPT/HCPCS: 99212 ==

== ENCOUNTER → 2024-09-20 08:42 | Outpatient (REF) | payer OTHER, SELFPAY ==
--- NOTE | 2024-09-20 08:47 | CA_ITS ---
Transthoracic Echocardiogram Patient (Last, First, Middle): Franklin Donnelly J Gender: Male Date of : 1980 Age: 44 Procedure Date: 09/20/2024 Procedure Type: Transthoracic Echocardiogram Location: OP Height: 180. cm Weight: 136.08 kg BSA: 2.50 m2 Heart Rate: 77 bpm BP: 128 / 70 mmHg Magazine Editor: JOSS Adrian MD: Austin Serna MD Safety And Health Manager: Austin Serna MD Symptoms: R06.02 - Shortness of breath Study Quality: Technically Difficult w/Contrast. US IV Guide ECG Rhythm: Sinus Conclusions: - Normal left ventricular size and systolic function. There is mildly increased left ventricular wall thickness. The visually estimated ejection fraction is between 60-65%. - Diastolic function is normal for age. - Normal right ventricular cavity size and systolic function. - The left atrium is normal in size. Findings Procedure Information Contrast agent, definity, is being given per protocol without apparent complications. The quality of the study was technically difficult. Left Ventricle Normal left ventricular size and systolic function. There is mildly increased left ventricular wall thickness. The visually estimated ejection fraction is between 60-65%. There is no evidence of regional wall motion abnormalities. Diastolic function is normal for age. Right Ventricle Normal right ventricular cavity size and systolic function. Atria The left atrium is normal in size. The right atrium was not well visualized. Aortic Valve Normal aortic valve structure and function. There is no aortic valve stenosis. There is no aortic valve regurgitation. Mitral Valve The mitral valve appears normal. There is no mitral valve regurgitation. There is no mitral valve stenosis. Pulmonic Valve The pulmonic valve is likely normal. Tricuspid Valve Normal tricuspid valve structure and function. There is no tricuspid valve regurgitation. Tricuspid regurgitation envelope is inadequate for calculation of right ventricular systolic pressure. Normal right atrial pressure. Great Vessels All visible segments of the aorta are normal in size. The visualized portions of the pulmonary artery and branches are normal. Venous The inferior vena cava is normal in size and collapses greater than 50% with inspiration. Pericardium/Pleural Prominent epicardial adipose tissue noted. There is no evidence of pericardial effusion. Prior Study Comparison No significant change compared to prior study dated: 08/16/2020. Measurements 2D Linear Measurements IVSd: 1.06 0.6-0.9/0.6-1.0 cm LVIDd: 4.61 3.9-5.3/4.2-5.9 cm LVIDd Index: 1.84 2.4-3.2/2.2-3.1 cm/m2 LVIDs: 2.78 2.0-3.6 cm LVPWd: 1.16 0.7-1.1 cm LA Diam: 3.60 2.7-3.8/3.0-4.0 cm LAIDs Index: 1.44 1.5-2.3 cm/m2 LV Mass: 229.47 67-162/88-224 g LV Mass Index: 91.79 43-95/49-115 g/m2 LVOT Diam: 2.10 3.0+(-)1.3 cm 2D Systolic Function EF 4C: 64.90 >55% EF 2C: 69.70 >55% EF BiP: 66.20 >55% Mitral Valve MV Pk E: 0.77 MV PK A: 0.76 MV Decel Time: 299.00 E/A: 1.00 E'Lateral: 10.30 E'Medial: 8.81 E/E' Med: 8.70 E/E' Lat: 7.40 PHT: 88.00 MVA PHT: 2.50 Decel Harnett: 2.56 Aortic Valve AoV Pk Pedro: 1.45 AoV Mn Pedro: 1.01 AoV VTI: 0.28 AoV Pk Grad: 8.00 Aov Mn Grad: 5.00 ENOCH Cont.VTI: 2.78 LVOT LVOT Pk Pedro: 1.14 LVOT Mn Pedro: 0.81 LVOT VTI: 0.23 LVOT Pk Grad: 5.00 LVOT Mn Grad: 3.00 LVOT Diam: 2.10 LVOT Area: 3.46 Diastolic Function MV Pk E: 0.77 MV Pk A: 0.76 E/A: 1.00 E'Medial: 8.81 E/E' Med: 8.70 E' Laterial: 10.30 E/E' Lat: 7.40 Right Ventricle TAPSE (mm): 23.10 TVS' Pedro: 11.20 Tricuspid Valve RA Press: 3.00 Great Vessels Aorta Sinus of Valsalva: 3.20 2.0-3.5 cm Ao Asc: 2.70 2.1-3.4 cm Pulmonary Valve PV Pk Pedro: 1.03 Peak PV Grad: 4.00 Updated in Other Vendor System with Status of Final Austin Serna MD electronically signed on 09/25/2024 5:46:29 PM with status of Final
--- OUTSIDE RECORDS SUMMARY | 2024-09-20 08:55 | XMS_ITS | Clinical Summary ---
Author Organization [facility] [employer] [facility] it Address [address] [place] [address] Care Team Providers Care Risk Management Director Name Role Phone Eliel Jaeger Primary Care [...] (CMS/HCC V24) DX:Sacroiliitis, not elsewhe re classified ([facility]) History of sarcoidosis 07/13/2017 DX:Histor y of [...] Maintenance Due Date Last Done Comments Hepatitis A Vaccines (1 of 2 - Risk 2-dose series) 1997 Hepatitis B Vaccines (1 of 3 - 19+ 3-dose series) 1997 Pneumococcal Vaccine: Pediat rics (0 to 5 Years) and At-Risk Patients (6 to 49 Years) (1 of 2 - PCV) 1997 Cholesterol Screening (Lipid Panel) 02/16/2022 Colorectal Cancer Screening: Colonoscopy 02/16/2022 Depression Screening 02/16/2022 HIV Screening 02/16/2022 Hepatitis C Screening 02/16/2022 Social Influencers of Health Screening 02/16/2022 DTaP,Tdap,and Td Vaccines (2 - Td or Tdap) 03/19/2022 03/19/2012 COVID-19 Vaccine (1 - 2023-2 5 season) 2023 Influenza Vaccine (#1) 2024 HIB Vaccines Aged Out No longer [...] age to complete this topic Care Teams Risk Management Director Relationship Specialty Start Date End Date Eliel Jaeger PA PCP - General Internal Medicine 10/29/21
[2024-09-20 09:37] LABS: Hematocrit 41.7 % (42.0-52.0); Hemoglobin 14.1 g/dl (14.0-18.0); Mean Corpuscular HGB Conc 33.8 g/dl (31.0-36.0); Mean Corpuscular Hemoglobin 29.3 pg (27.0-33.0); Mean Corpuscular Volume 86.5 fL (80.0-98.0); NRBC Abs Auto 0.000 X10*3/uL (0.0-0.012); NRBC Pct Auto 0.0 /100WBC (0.0-0.2); Platelet Count 166 X10*3/uL (160-400); Red Blood Count 4.82 X10*6/uL (4.60-5.80); White Blood Count 3.7 X10*3/uL (4.8-10.8)
[2024-09-20 10:44] LABS: Microalbum/Creatinine Ratio Ur 2.9 ug/mg cr (<30)
[2024-09-20 10:48] LABS: Alanine Aminotransferase 27 U/L (0-40); Albumin Level 4.3 g/dL (3.5-5.0); Alkaline Phosphatase 52 U/L (39-117); Anion Gap 16 (12-20); Aspartate Amino Transferase 29 U/L (5-37); Blood Urea Nitrogen 12 mg/dL (9-16); Calcium 9.1 mg/dL (8.4-10.2); Carbon Dioxide 29 mmol/L (22-29); Chloride 99 mmol/L (96-108); Cholesterol 256 mg/dL (<200); Estimated Glomerular Filt Rate > 60; HDL Cholesterol 42 mg/dL (>40); Potassium 3.9 mmol/L (3.3-5.1); Sodium 140 mmol/L (135-145); Total Protein 7.2 g/dL (6.5-8.0); Triglycerides 493 mg/dL (<150)
== END ==
LOC: HO.CARD 08:42
PROVIDERS: Absent Provider Physician Assistant; PCP Physician Assistant; Visit Provider Internal Medicine Cardiovascular Disease
DX: I63.411 Cerebral infarction due to embolism of right middle cerebral artery (principal); K21.9 Gastro-esophageal reflux disease without esophagitis; I10 Essential (primary) hypertension; R06.02 Shortness of breath; R73.09 Other abnormal glucose
CPT/HCPCS: 36415; 80053; 80061; 82043; 82570; 85027; 93306; Q9957

== ENCOUNTER → 2024-09-20 08:47 | Outpatient (BNV) | payer OTHER, SELFPAY | PROVIDERS: Absent Provider Physician Assistant; PCP Physician Assistant; Visit Provider Internal Medicine Cardiovascular Disease | DX: R06.02 Shortness of breath (principal) | CPT/HCPCS: 93306 ==

== ENCOUNTER 2024-10-07 15:41 | Outpatient (REF) | payer OTHER, SELFPAY ==
--- NOTE | ~2024-10-07 | US_ITS ---
CLINICAL HISTORY: R60.0 - Localized edema --- Additional Notes or Special Instructions: assess for DVT Venous duplex ultrasound bilateral lower extremity Comparison: None provided Findings: The visualized deep veins are fully compressible with normal Doppler color flow and spectral tracings. No popliteal cyst. IMPRESSION: 1. Negative for bilateral lower extremity deep vein thrombosis. This document has been electronically signed by: Familia Laureano MD on 10/09/2024 11:12:49
--- OUTSIDE RECORDS SUMMARY | 2024-10-07 15:43 | XMS_ITS | Clinical Summary ---
Author Organization [facility] [employer] [facility] it Address [address] [place] [address] Care Team Providers Care Business Information Analyst Name Role Phone Eliel Jaeger Primary Care [...] DX:Sacroiliitis, not elsewhe re classified ([facility]) History of sarcoidosis 07/13/2017 DX:Histor y of [...] Panel) 02/16/2022 Colorectal Cancer Screening: Colonoscopy 02/16/2022 HIV Screening 02/16/2022 Hepatitis C Screening 02/16/2022 Social Influencers of Health Screening 02/16/2022 DTaP,Tdap,and Td Vaccines (2 - Td or Tdap) 03/19/2022 03/19/2012 COVID-19 Vaccine (1 - 2023-2 5 season) 2023 Depression Screening 03/16/2024 Influenza Vaccine (#1) 2024 HIB Vaccines Aged [...] age to complete this topic Care Teams Business Information Analyst Relationship Specialty Start Date End Date Eliel Jaeger PA PCP - General Internal Medicine 10/29/21
== END 2024-10-07 15:42 | disposition home or self-care (01) ==
LOC: HO.US 15:41
PROVIDERS: PCP Physician Assistant; Visit Provider Nurse Practitioner Family
DX: I26.99 Other pulmonary embolism without acute cor pulmonale (principal); R60.0 Localized edema; E66.01 Morbid (severe) obesity due to excess calories; Z68.41 Body mass index [BMI] 40.0-44.9, adult
CPT/HCPCS: 93970

== ENCOUNTER → 2024-10-07 15:43 | Outpatient (BNV) | payer OTHER, SELFPAY | PROVIDERS: PCP Physician Assistant; Visit Provider Radiology Diagnostic Radiology | DX: R60.0 Localized edema (principal) | CPT/HCPCS: 93970 ==

== ENCOUNTER 2025-01-23 15:09 | Outpatient (AMB) | payer OTHER, SELFPAY ==
--- NOTE | 2025-01-23 15:11 | MHC.OFFVIS ---
Vital Signs 01/23/25 15:13 Height 5 ft 9 in Weight 290 lb 9.108 oz BMI 42.9 BP 130/64 Blood Pressure Location Lt brachial Position Sitting Pulse 88 Pulse Source Pulse Oximeter Intake Visit Reasons: (rs) 9 mth fu Intake Note: 9 mth f/up Facilities Plant Engineer Required: No Accompanied by: Self / Same As Patient Allergies bee pollen Allergy (Mild, Verified 12/29/24 15:34) Headache Medication List - Last Reconciled 01/23/25 by Austin Serna MD albuterol sulfate 90 mcg/actuation 2 inhalations inhalation Q4-6H PRN apixaban (Eliquis) 5 mg PO BID 30 days atorvastatin 80 mg PO DAILY blood pressure kit-extra large As directed bupropion HCl XL 300 mg PO DAILY citalopram 40 mg PO DAILY clonazepam 1 mg PO BID 30 days compr.stocking,knee,long,x-lrg As directed famotidine 20 mg PO DAILY 90 days furosemide 40 mg (2 x 20 mg) PO Q OTHER DAY hydrochlorothiazide 25 mg PO QAM loratadine 10 mg PO DAILY 90 days HPI Comments Details: He is here for follow-up. He was seen for dyspnea on exertion and after some discussion he was referred for coronary CTA. Coronary CTA did not show any significant coronary disease but did raise concern for filling defects in the pulmonary arteries on the right and left side and he was diagnosed with pulmonary embolism. He was started on apixaban 5 mg twice a day. He is a heavy smoker. He also was significantly overweight and has been trying to lose weight and has lost approximately 30 lb at this point. He is saying that he has tried to use nicotine gum and patch but he gets very agitated when he uses them. He could not tolerate Chantix before. He also had a TIA in the past. He is saying everything started after he received the COVID vaccine in 2020. [facility] Medical History Hx of stroke without residual deficits Lymph edema Smoker Morbid obesity Sarcoid Nocturnal hypoxemia HTN (hypertension) Anxiety ALISON (obstructive sleep apnea) Morbid obesity Depression Surgical History History of umbilical hernia repair (~05/17/24) H/O shoulder surgery Family History Mother No problems noted. Father High blood pressure Maternal Grandfather Bone cancer Maternal Aunt Cervical cancer Maternal Grandmother Colon cancer, Onset Age: 89 Social History Household Members: Spouse Housing: House Are you a primary career technology teacher to a significant other at home: No Do you presently have visiting nurse or other home services: No Alcohol intake: never Patient Tobacco Use Status: Current everyday Tobacco user Tobacco use type: Cigarette Cigarette Packs Per Day: 1 Cigarettes Per Day: 20 e-Cigarette/Vaping Use: Currently Using service: No Current occupational status: employed Cognitive needs: No Hearing needs: No Vision needs: No Review of Systems Const Denies chills, Denies fatigue, Denies fever(s), Denies frequent falls, Denies weakness, Denies weight gain and Denies weight loss ENT Denies dizziness Card Denies chest pain, Denies leg edema, Denies lightheadedness, Denies palpitations, Denies dyspnea and Denies dyspnea on exertion Resp Denies cough, Denies dyspnea and Denies dyspnea on exertion GI Denies hematochezia Musc Denies abnormal gait, Denies muscle weakness, Denies numbness, Denies radiating pain into limb and Denies tingling Neuro Denies abnormal gait, Denies dizziness, Denies frequent falls, Denies numbness, Denies tingling and Denies weakness Endo Denies fatigue and Denies palpitations Physical Exam Vital Signs: Last Vital Signs Pulse 88 01/23/25 15:13 BP 130/64 01/23/25 15:13 BMI result Body Mass Index 42.9 GENERAL APPEARANCE: in no acute distress, pleasant. NECK: no carotid bruit, no jugular venous distention. SKIN: no suspicious lesions, warm and dry. HEART: no murmurs, regular rate and rhythm. LUNGS: clear to auscultation bilaterally. ABDOMEN: soft, nontender. EXTREMITIES: no edema. PERIPHERAL PULSES: equal. NEUROLOGIC: No gross deficits, AAO X 3 Assessment & Plan Assessment & Plan (1) Pulmonary embolism: Code(s): I26.99 - Other pulmonary embolism without acute cor pulmonale Category: Medical (2) HTN (hypertension): Code(s): I10 - Essential (primary) hypertension Category: Medical Qualifiers: Hypertension type: essential hypertension Qualified Code(s): I10 - Essential (primary) hypertension Plan Pleasant 44 year gentleman who is here for follow-up. He was originally seen for perioperative cardiovascular risk assessment before hernia surgery. He underwent hernia surgery in June of 2024. He was complaining of shortness of breath and we sent him for coronary CTA. CTA was negative for any significant coronary disease but did raise concern for pulmonary embolism. He was subsequently asked to undergo a dedicated CT pulmonary angiogram but he was not agreeable. At that stage he was started on apixaban. He is saying that he has been doing well. He has been changing his diet and has lost 30 lb at this point. Unfortunately he continues to smoke. I have explained to him that his current risk factors are obesity and smoking for the pulmonary embolism. He also had a TIA in the past. I am concerned that he may have some sort of underlying hypercoagulable state and before we stopped Eliquis he should be assessed in detail by Hematology. I am referring him for further assessment. In the meantime we will continue same medications. He continues to smoke unfortunately. He is on bupropion. We discussed in detail that he needs to get motivated somehow and quit smoking. He has failed Chantix and could not tolerate nicotine patch etc.. Thank you for allowing me to participate in the care of your patient. Please feel free to contact me if you have any questions. Orders: Referrals Hematology & Oncology Referral I26.99 - Other pulmonary embolism without acute cor pulmonale Coding Level of Care Code Est Pt Level 4 (93010) Diagnoses Pulmonary embolism I26.99 Essential hypertension I10 Hypertension type: essential hypertension
[2025-01-23 15:13] VITALS: BP 130/64; PULSE 88; BMI 42.9
--- OUTSIDE RECORDS SUMMARY | 2025-01-23 17:18 | XMS_ITS | Clinical Summary ---
[facility] Organization [facility] Address [address] [place] [address] Care Team Providers Care Cigar Sorter Name Role Phone Eliel Jaeger Primary Care [...] (CMS/HCC V24) DX:Sacroiliitis, not elsewhe re classified ([facility]) History of sarcoidosis 07/13/2017 DX:Histor y [...] of 3 - 19+ 3-dose series) 1997 DTaP,Tdap,and Td Vaccines (2 - Td or Tdap) 03/19/2022 03/19/2012 Depression Screening 03/16/2024 COVID-19 Vaccine (2023-2 5 season) 2024 Influenza Vaccine (#1) 2024 RSV Immunization Adult Patie nts (1 - 1-dose 75+ series) 2053 HIB Vaccines Aged Out No longer eligi [...] on patient's age to complete this topic Pneumococcal Vaccine: Pediat rics (0 to 5 Years) and At-Risk Patients (6 to 49 Years) Aged Out No longer eligi ble based on patient's age to complete this topic RSV Immunization Patients Un david 20 months Aged Out No longer eligible b ased on patient's age to complete this topic Varicella Vaccines Aged Out No longer eligible based on patient's age to complete this topic Care Teams Cigar Sorter Relationship Specialty Start Date End Date Eliel Jaeger PA PCP - General Internal Medicine 10/29/21
== END 2025-01-23 15:32 | disposition home or self-care (01) ==
LOC: HO.HCS 15:09
PROVIDERS: PCP Physician Assistant; Visit Provider Internal Medicine Cardiovascular Disease
DX: I26.99 Other pulmonary embolism without acute cor pulmonale (principal); I10 Essential (primary) hypertension
CPT/HCPCS: 99214

== ENCOUNTER → 2025-01-23 15:09 | Outpatient (BNVA) | payer OTHER, SELFPAY | PROVIDERS: PCP Physician Assistant; Visit Provider Internal Medicine Cardiovascular Disease | DX: I10 Essential (primary) hypertension (principal); I26.99 Other pulmonary embolism without acute cor pulmonale | CPT/HCPCS: 99212 ==

== ENCOUNTER 2025-01-31 15:35 | Outpatient (AMB) | payer OTHER, SELFPAY ==
--- NOTE | 2025-01-31 15:46 | MHC.PC.OV ---
Vital Signs 01/31/25 15:48 Height 5 ft 9 in Weight 284 lb 6 oz BMI 42.0 BP 140/70 H Blood Pressure Location Lt brachial Position Sitting Pulse 86 Pulse Source Pulse Oximeter Temp 97.1 F Temp Source Temporal Artery Scan Pulse Oximetry (%) 97 Oxygen Delivery Method Room Air Intake Visit Reasons: follow up Intake Note: Patient is here to follow up on HTN, ALISON, GERD. Web Portal Developer Required: No Action Finisher: Not Required per policy Accompanied by: Self / Same As Patient Allergies bee pollen Allergy (Mild, Verified 01/31/25 15:54) Headache Medication List - Last Reconciled 01/31/25 by Eliel Jaeger PA-C albuterol sulfate 90 mcg/actuation 2 inhalations inhalation Q4-6H PRN apixaban (Eliquis) 5 mg PO BID 30 days atorvastatin 80 mg PO DAILY blood pressure kit-extra large As directed bupropion HCl XL 300 mg PO DAILY citalopram 40 mg PO DAILY clonazepam 1 mg PO BID 30 days compr.stocking,knee,long,x-lrg As directed famotidine 20 mg PO DAILY 90 days furosemide 40 mg (2 x 20 mg) PO Q OTHER DAY hydrochlorothiazide 25 mg PO QAM loratadine 10 mg PO DAILY 90 days Tobacco use date assessed: 01/31/25 Dental Screening Dental Screen Date: 03/31/24 HPI follow up HPI Details Patient is a 44-year-old male here today for a follow-up visit.? Patient has a past medical history significant for hypertension, obesity, generalized anxiety disorder, history opiate use disorder, tobacco dependency, GERD. .. Class 3 obesity: Has been able to reduce his weight by reducing sugar and carbs. He is now followed by the [facility] weight management program We have tried GLP 1 though insurance has not been able to cover this medication. .. lymphedema:? Patient does understand his BMI continues to be above 40.? Has had a lot of trouble losing weight.? He reports he has been following a good diet and has been somewhat active though has not been able to lose weight. He was started on lymphedema pneumatic compression massage which has been helpful on reducing his lymphedematous extremities. He does have skin manifestations including hyperpigmentation in his lower extremities and hyperkeratosis over his upper extremities. .. 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 He was placed on apixaban 5 mg twice a day. At this point in his unclear what has caused both his CVA and new pulmonary embolism. Has been referred to Hematology for further workup . .. Generalized anxiety disorder:? Patient continues on Celexa, bupropion and clonazepam 1 mg b.i.d..? He is interested in seeing a psychiatrist for recommendations on medication to control his anxiety. He is also interested in talking to a mental health therapist. .. Obstructive sleep apnea: Continues to use a CPAP machine on a nightly basis with good effect. He was diagnosed with sleep apnea many many years ago. .. Tobacco dependency:? Patient does understand he really needs to completely quit smoking.? Has reduced his smoking to 10 cigarettes per day from 1 pack per day.? Has been using nicotine patches and negative trial inhaler. He still finds it very difficult to completely quit smoking as he does have breakthrough withdrawal symptoms. .. HTN :??Blood pressure acceptable today in office. Will continue his current dose of hydrochlorothiazide. .. CVA:? Suffered a CVA in 2021. Did have some some speech weeks after though has currently now no neurological sequelae. ? He continues on baby aspirin and high-dose statin therapy.? [facility] Medical History (Reviewed 01/23/25 @ 15:14 by Kristin Murphy, [facility]) Hx of stroke without residual deficits Lymph edema Smoker Morbid obesity Sarcoid Nocturnal hypoxemia HTN (hypertension) Anxiety ALISON (obstructive sleep apnea) Morbid obesity Depression Surgical History History of umbilical hernia repair (~05/17/24) H/O shoulder surgery Family History Mother No problems noted. Father High blood pressure Maternal Grandfather Bone cancer Maternal Aunt Cervical cancer Maternal Grandmother Colon cancer, Onset Age: 89 Social History Household Members: Spouse Housing: House Are you a primary health care specialist to a significant other at home: No Do you presently have visiting nurse or other home services: No Alcohol intake: never Patient Tobacco Use Status: Current everyday Tobacco user Tobacco use type: Cigarette Cigarette Packs Per Day: 1 Cigarettes Per Day: 20 e-Cigarette/Vaping Use: Never Used Second Hand Smoke Exposure: Yes service: No Current occupational status: employed Cognitive needs: No Hearing needs: No Vision needs: No Questionnaire Thrive Questionnaire Date Thrive assessed: 03/31/24 I am a: Patient What is your living situation today?: I have a steady place to live Within the past 12 months, did the food you bought not last and you didn't have the money to get more?: Never true Within the past 12 months, did you worry whether your food would run out before you got money to buy more?: Never true Do you have trouble paying for medicines?: No Do you have trouble getting transportation to medical appointments?: No Do you have trouble paying your heating and electricity bill?: No Do you have trouble taking care of your child, family member or friend?: No Do you have trouble with day-to-day activities such as bathing, preparing meals, shopping, managing finances, etc.?: No Are you currently unemployed and looking for a job?: No Are you interested in more education?: No Please select the resources that you would like help with: None Currently or been in a relationship where the following occur: No concerns reported THRIVE Score: 0 JAMEEL-7 AMB Questionnaire JAMEEL-7 Date JAMEEL - 7 assessed: 03/31/24 Source: Developed by Drs. Nav Staples, Judy Dong, Dre Whitney and colleagues, with an educational mary lou from [employer]. Review of Systems Const Denies headache(s) Eyes Denies loss of vision ENT Denies vertigo, Denies dizziness, Denies headache(s) and Denies sore throat Card Denies chest pain, Denies leg edema and Denies lightheadedness Resp Denies cough, Denies hemoptysis and Denies wheezing GI Denies abdominal pain, Denies melena, Denies constipation, Denies diarrhea and Denies vomiting Denies dysuria, Denies urinary frequency and Denies urinary urgency Musc Denies arthralgias, Denies joint swelling, Denies numbness and Denies tingling Neuro Denies Abnormal speech present, Denies behavioral changes, Denies vertigo, Denies dizziness, Denies headache(s), Denies loss of vision, Denies memory loss, Denies numbness and Denies tingling Psych Denies anxiety, Denies behavioral changes, Denies depression, Denies memory loss and Denies panic attacks Jose Antonio/Lymph Denies easy bleeding and Denies easy bruising Aller/Immun Denies wheezing Physical exam (Primary Care) Vital Signs: Last Vital Signs Temp 97.1 F 01/31/25 15:48 Pulse 86 01/31/25 15:48 BP 140/70 H 01/31/25 15:48 Pulse Ox 97 01/31/25 15:48 Oxygen Delivery Method Room Air 01/31/25 15:48 BMI result Body Mass Index 42.0 BMI Assessment/Plan discussion: High BMI High, discussed plan: lifestyle, weight reduction, dietary and physical activity Tobacco/Smoking Status: Tobacco use Status Tobacco use date assessed 01/31/25 01/31/25 15:52 Patient Tobacco Use Status Current everyday Tobacco 01/31/25 15:52 Tobacco use type Cigarette 01/31/25 15:52 e-Cigarette/Vaping Use Never Used 01/31/25 15:52 Are you ready to quit: No Tobacco cessation counseling provided: Yes Items discussed: Nicotine replacement Relapse Prevention: discussed the importance of a supportive environment, discussed negative mood or depression after quitting, weight gain after smoking is common and discussed dietary, exercise and/or lifestyle changes Number of minutes spent counselin CPT code: 22483 - 4-10 Minutes Thrive Assessment: Date of Thrive Assessment Date Thrive assessed 03/31/24 01/31/25 15:52 Currently or been in a relationship where the following occur: No concerns reported Const General: healthy appearing, no acute distress, alert and awake Nutritional Appearance: well nourished Orientation/consciousness: oriented to person, oriented to place and oriented to time HENMT Ears: TM's normal bilaterally General nose exam: Normal nasal mucous membranes and turbinates present Eyes Conjunctivae: conjunctivae normal Sclerae: sclerae normal Pupils: Equal, round and reactive pupils present Neck Neck: Yes no lymphadenopathy and Yes no JVD Thyroid: Thyroid normal Carotids: no bruits Resp Effort & Inspection: normal respiratory effort and not tachypneic Auscultation: no crackles, no rales, no rhonchi and no wheezes Cardio Rate: regular rate Rhythm: regular rhythm Heart sounds: no murmurs and normal S1 and S2 GI Palpation (GI): Soft to palpation, nontender, no hepatomegaly and no splenomegaly Auscultation: normal bowel sounds Skin General skin exam: no rashes or lesions noted and dry skin Neuro General: oriented to person, oriented to place and oriented to time Cranial nerves: Yes Equal, round and reactive pupils present Speech: No Abnormal speech present Gait exam (Neuro): Normal gait present Motor exam (neuro): no tremor noted Extrem Right upper extremity: full ROM Left upper extremity: full ROM Right lower extremity: full ROM; no edema Left lower extremity: full ROM; no edema Psych Mental Status: mental status grossly normal Speech and movement: Normal speech and movement present Affect: normal affect Attitude: cooperative Thought process: Normal thought process present Coding Level of Care Code Est Pt Level 4 (03978) Diagnoses JAMEEL (generalized anxiety disorder) F41.1 Acute pulmonary embolism with acute cor pulmonale, unspecified pulmonary embolism type I26.09 Acute cor pulmonale presence: with acute cor pulmonale Chronicity: acute Pulmonary embolism type: unspecified Class 3 obesity E66.813 Cerebrovascular accident (CVA) due to embolism of right middle cerebral artery I63.411 CVA mechanism: embolism Laterality of affected vessel: right Precerebral and cerebral artery: middle cerebral artery Primary hypertension I10 Hypertension type: primary hypertension Tobacco dependence F17.200 Lymphedema I89.0 ALISON (obstructive sleep apnea) G47.33 Additional Codes Vital Signs *Quality* - CPT code: 79437 - 4-10 Minutes ([id number]) Assessment & Plan Assessment & Plan (1) JAMEEL (generalized anxiety disorder): Code(s): F41.1 - Generalized anxiety disorder Category: Medical Plan: Patient continues on clonazepam and SSRI therapy with decent affect on his anxiety. He has been feeling much better since losing weight and changing his diet. (2) Pulmonary embolism: Code(s): I26.99 - Other pulmonary embolism without acute cor pulmonale Category: Medical Qualifiers: Acute cor pulmonale presence: with acute cor pulmonale Chronicity: acute Pulmonary embolism type: unspecified Qualified Code(s): I26.09 - Other pulmonary embolism with acute cor pulmonale Plan: As per HPI patient has been recently started on Eliquis 5 mg b.i.d. for an incidental note of a pulmonary embolism. At this point has had a CVA ( 2021) and a pulmonary embolism (2024) Unclear etiology to patient's cause of the emboli, though of note did have an umbilical hernia repair in May of 2024 which may have been a contributing factor.. Has upcoming appointment with Hematology to eval for hypercoagulability For now will continue on anticoagulation (3) Class 3 obesity: Code(s): E66.813 - Obesity, class 3 Category: Medical Plan: Patient does understand his BMI remains above 40. He has shown benefit with GLP 1 in the past. While on previous GLP 1 he had noted better eating habits and it increased energy. Medical necessity for GLP 1 (Zepbound)--> patient has comorbidities such as obstructive sleep apnea (on CPAP therapy), class 3 obesity, CVA and hypertension. Did have good response to Wegovy. We anticipate improvement in weight, blood pressure and obstructive sleep apnea symptoms with zepbound (4) CVA (cerebral vascular accident): Comment: History of CVA in 2021 Code(s): I63.9 - Cerebral infarction, unspecified Category: Medical Qualifiers: CVA mechanism: embolism Laterality of affected vessel: right Precerebral and cerebral artery: middle cerebral artery Qualified Code(s): I63.411 - Cerebral infarction due to embolism of right middle cerebral artery Plan: Suffered a stroke in 2021 no neurological sequelae. He has continues on aspirin and aggressive cholesterol control. (5) HTN (hypertension): Code(s): I10 - Essential (primary) hypertension Category: Medical Qualifiers: Hypertension type: primary hypertension Qualified Code(s): I10 - Essential (primary) hypertension Plan: Patient's blood pressure acceptable today in office. Will continue his current dose of hydrochlorothiazide with goal blood pressure to remain below 140/90 (6) Tobacco dependence: Code(s): F17.200 - Nicotine dependence, unspecified, uncomplicated Category: Medical Plan: Franklin does understand he needs to quit smoking. He does understand his cardiovascular risk continued smoking.. He has cut down significantly the amount of he is smoking though still smoking on a daily basis. Has access to nicotine replacement therapy. (7) Lymphedema: Comment: THIS PATIENT HAS SEVERE LYMPHEDEMA OF HIS UPPER AND LOWER EXTREMITIES. THIS CONTRIBUTES TO HIS MORBID OBESITY. HE IS BEING TREATED IN PHYSICAL THERAPY WITH COMPRESSIVE BANDAGES. Code(s): I89.0 - Lymphedema, not elsewhere classified Category: Medical Plan: His lymphedema has been a bit better since he has lost weight secondary to dietary and lifestyle changes. (8) ALISON (obstructive sleep apnea): Comment: VERY SEVERE ALISON WITH PAST HISTORY OF ALISON FOR 10 YEARS. HE IS ON CPAP WITH AUTO PAP MODE AND PRESSURE SETTING OF 6-20 CM, BECAUSE OF RESIDUAL OBSTRUCTIVE SLEEP APNEA ON AUTO PAP MODE, HE HAD CPAP TITRATION AND STARTED ON BILEVEL PRESSURE OF 27-16 CM. HE WAS INTOLERANT OF THE HIGH PRESSURE. SO ON LAST VISIT THE PRESSURE WAS REDUCED TO 20/15 CM. WITH THIS THE HE CAN KEEP THE CPAP ON FOR MORE THAN 7 HOURS EVERY NIGHT. HE CLAIMS THAT HIS SLEEP IS MUCH BETTER. HOWEVER THERE IS AIR LEAK AND ALSO THERE IS RESIDUAL AHI OF 30. I THINK AIR LEAK MAY BE CONTRIBUTING TO THIS. I INSTRUCTED HIM TO TIGHTEN THE STRAPS AT NIGHT. ENCOURAGED HIM TO CONTINUE USING IT EVERY NIGHT. * HIS SLEEP APNEA IS SUB OPTIMALLY CONTROLLED, BUT I THINK IT IS BETTER THAN NOT USING IT ALL. Code(s): G47.33 - Obstructive sleep apnea (adult) (pediatric) Category: Medical Plan: Continues to use CPAP machine on a nightly basis We addressed his obstructive sleep apnea management with the CPAP and the possibilities of insurance coverage for Zepbound under this condition. Orders: Orders Lipid Panel 01/31/25 I63.411 - Cerebral infarction due to embolism of right middle cerebral artery [facility]. Panel Fast 01/31/25 I63.411 - Cerebral infarction due to embolism of right middle cerebral artery Testosterone, Free/Total 01/31/25 E66.813 - Obesity, class 3 Vitamin B12 and Folate 01/31/25 E53.8 - Deficiency of other specified B group vitamins, F33.1 - Major depressive disorder, recurrent, moderate Complete Blood Count no Diff 01/31/25 I63.411 - Cerebral infarction due to embolism of right middle cerebral artery Microalbumin, Random (w Creat) 01/31/25 I10 - Essential (primary) hypertension Medications: New tirzepatide (weight loss) (Zepbound) for 4 weeks 2.5 mg (0.5 mL) subcut QWEEK 2 mL 0RF 4 weeks E66.813 - Obesity, class 3, G47.33 - Obstructive sleep apnea (adult) (pediatric), I63.411 - Cerebral infarction due to embolism of right middle cerebral artery Refilled clonazepam 1 mg PO BID 60 tabs 3RF 30 days F41.1 - Generalized anxiety disorder
[2025-01-31 15:48] VITALS: BP 140/70; PULSE 86; TEMP 36.2; O2SAT 97; BMI 42.0
== END 2025-01-31 16:14 | disposition home or self-care (01) ==
LOC: HO.HMCH 15:36
PROVIDERS: PCP Physician Assistant; Visit Provider Physician Assistant
DX: F41.1 Generalized anxiety disorder (principal); I26.09 Other pulmonary embolism with acute cor pulmonale; E66.813 Obesity, class 3; I63.411 Cerebral infarction due to embolism of right middle cerebral artery; I10 Essential (primary) hypertension; F17.200 Nicotine dependence, unspecified, uncomplicated; I89.0 Lymphedema, not elsewhere classified; G47.33 Obstructive sleep apnea (adult) (pediatric); Z68.42 Body mass index [BMI] 45.0-49.9, adult

== ENCOUNTER → 2025-01-31 15:35 | Outpatient (BNVA) | payer OTHER, SELFPAY | PROVIDERS: PCP Physician Assistant; Visit Provider Physician Assistant | DX: F41.1 Generalized anxiety disorder (principal); I26.09 Other pulmonary embolism with acute cor pulmonale; E66.813 Obesity, class 3; I63.411 Cerebral infarction due to embolism of right middle cerebral artery; I10 Essential (primary) hypertension; I89.0 Lymphedema, not elsewhere classified; G47.33 Obstructive sleep apnea (adult) (pediatric); F17.210 Nicotine dependence, cigarettes, uncomplicated; Z68.41 Body mass index [BMI] 40.0-44.9, adult | CPT/HCPCS: 99212 ==

== ENCOUNTER 2025-02-01 08:26 | Outpatient (AMB) | payer OTHER, SELFPAY ==
--- NOTE | 2025-02-01 13:10 | MHC.OFFVISWM ---
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 Medication List - Last Reconciled 02/01/25 by Peterson Linda MD apixaban (Eliquis) 5 mg PO BID 30 days blood pressure kit-extra large As directed bupropion HCl XL 300 mg PO DAILY citalopram 40 mg PO DAILY clonazepam 1 mg PO BID 30 days compr.stocking,knee,long,x-lrg As directed famotidine 20 mg PO DAILY 90 days furosemide 40 mg (2 x 20 mg) PO Q OTHER DAY hydrochlorothiazide 25 mg PO QAM loratadine 10 mg PO DAILY 90 days HPI 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: Details: Start time: 1.07pm, End time: 2.07pm ?I spent 55 minutes speaking with the patient on the phone plus an additional 5 minutes reviewing and updating records for a total of 60 minutes HPI Comments Details: Previous weight loss efforts: Wegovy for 4 months: lost 3olbs and regained, Zepbound: 2 months: lost 20 lbs Wakes up: 7am, Sleeps: 11pm Breakfast: 9am (low fat yogurt with berries) Lunch: 12pm-1pm (Pure protein bar) Dinner: 5-6pm (Frozen dinners: chicken with vegetables and potatoes/rice) Snacks: 3-4pm (oranges, mandarins), 8pm (cereal, sweets) Exercise: stationary bike calorie tracking Beverages: Iced Coffee (10oz with cream and sugar), Tea: none, Soda: none, Juice: Perez juice with zero calories, ETOH: none PFSH Medical History (Updated 02/01/25 @ 13:19 by Peterson Linda MD) Hyperlipidemia Pulmonary embolism Hx of stroke without residual deficits Lymph edema Smoker Morbid obesity Sarcoid Nocturnal hypoxemia HTN (hypertension) Anxiety ALISON (obstructive sleep apnea) Morbid obesity Depression Surgical History History of umbilical hernia repair (~05/17/24) H/O shoulder surgery Family History Mother No problems noted. Father High blood pressure Maternal Grandfather Bone cancer Maternal Aunt Cervical cancer Maternal Grandmother Colon cancer, Onset Age: 89 Social History Household Members: Spouse Housing: House Are you a primary rn progressive care unit to a significant other at home: No Do you presently have visiting nurse or other home services: No Alcohol intake: never Patient Tobacco Use Status: Current everyday Tobacco user Tobacco use type: Cigarette Cigarette Packs Per Day: 1 Cigarettes Per Day: 20 e-Cigarette/Vaping Use: Never Used Second Hand Smoke Exposure: Yes service: No Current occupational status: employed Cognitive needs: No Hearing needs: No Vision needs: No Physical Exam Vital Signs: BMI result Body Mass Index 43.3 Telehealth Telehealth Telehealth Platform: Telephone Location of provider rendering services: practice address Location of patient: address on file Patient Identification confirmed using: Name, : Yes Telehealth method: voice only Patient verbally consented to treatment: Yes Patient verbally consented to billing insurance company: Yes Patient informed of any privacy concerns related to visit: Yes Minutes spent on Phone/Video with Pt.: 60 Assessment & Plan Assessment & Plan (1) Morbid obesity: Comment: PATIENT AWARE OF THIS. HE WOULD NEED TO JOIN WEIGHT REDUCTION PROGRAM, HAD A DETAILED DISCUSSION WITH HIM ABOUT THE WEIGHT AND CALORIES INTAKE. HE HAS TO PUT HIMSELF IN IN NEGATIVE BALANCE. IDEALLY HE SHOULD BE IN A WEIGHT MANAGEMENT PROGRAM BUT HE DOES NOT WANT TO JOIN. WILL CONTINUE TO TRY BY HIMSELF. Code(s): E66.01 - Morbid (severe) obesity due to excess calories Category: Medical Plan: 1.? Plan for lap sleeve gastrectomy. If diaphragmatic or ventral hernias are present at time of surgery, these will be repaired laparoscopically as well. I emphasized the importance of close follow-up, adherence to instructions and good communication. The surgery does not replace the need to change your lifestlyle which is the cause of the obesity problem. The surgery provides the motivation to try again to change your lifestyle, it reduces the appetite and make the transition to a better lifestyle easier and doubles the amount of weight you would lose compared to doing the lifestyle change without the surgery. You will need to be on a liquid diet with protein shakes for 2 weeks before surgery to maximize weight loss and boost your nutritional status to recover better from surgery and also for the first two weeks after surgery to let the stomach heal before we introduce other foods. After the first 2 weeks we will introduce protein bars and soft foods like scrambled eggs, cottage cheese and yogurt and after the 6th week will introduce meat, fish and cooked vegetables in small amounts. Over time you should be able to eat everything in small amounts. Side effects like nausea, vomiting, heartburn or abdominal pain are not common in the practice unless you are not following in the practice. This operation requires lifetime commitment to following in our practice and communication with me. You will much less weight and experience side effects if you don?t communicate or not following in the practice. Complications are rare and in our practice is about 1/10 of the national average. However, you can develop bleeding that may require transfusion (hasn?t happened for year in the practice), you may from complications (we did not have any deaths in the practice) and infections. Infections are usually a result of breakdown in communication or not understanding or following directions correctly. They are difficult to treat, they can happen during the first 6 weeks, they may require to be in the hospital for weeks or even months, not being able to eat by mouth and you may have drains and surgeries to try and correct the issue. Other risks and complications include possible conversion to an open procedure, leaks, small bowel obstruction, blood clots, cardiac, or pulmonary complications, as laborer marine terminal complications such as ulcers, insufficient weight loss and vitamin deficiencies. 2. Nutritional counseling. Start with one premade 30gr Fairlife protein (buy at [employer] or [employer]) shake (MIX 4oz of Fairlife shake with 4oz low fat unsweetened almond milk) at 8am-10am, one Pure protein bar at 11am-1pm, another 30gr Fairlife protein shake (MIX 4oz of Fairlife shake with 4oz low fat unsweetened almond milk) at 2pm-4pm, dinner at 5pm (12 forks of protein and 12 forks of salad/vegetables), another Pure protein bar after dinner at 7pm-9pm AND HALF Pure protein bar at 10pm-11pm. So you do 2 protein shakes, 2.5 protein bars and one meal per day. Meal to include lean meat (beef, fish, pork, turkey, chicken), or vietnamese yogurt, or egg whites, or beans with a salad with olive oil and fruits (berries, pears, apples, kiwi). Avoid salt, breads, potatoes, rice, pasta, desserts. 3. Each shake would be drunk slowly, like coffee in a period of 2 hours. 4. Cut each bar in 4 pieces and eat each piece in 30min ?to make each bar last 2 hours. 5. I emphasized the importance of measuring accurately the food portion and measure it when serving the food in plate 6. The meal portions include 12 full-size forks of meat and 12 full-size forks of salad. You always eat the meat portion but you can replace up to 6 forks for salad/vegetables with rice, potatoes or pasta, or a fruit ?if you like. The less you do it the better weight loss will be. 7. One full-size fork is what it can be scooped on the fork without falling aside and not what can be bit with the fork. Use regular forks like those you find in a typical restaurant. 8.? Please buy the body composition scale we discussed and send me weight measurements as soon as possible and then once a week. Always include your diet and exercise plan. 9. Start stationary bike at a resistance level of 0.0. Stay at this level until 100 calories are burned. Thy to do it twice every day, daily. 10. Goal is to lose at least 1.5-2lbs per week 11. Goal to lose 10% of your weight before surgery, which is about 33lbs. Ultimate weight goal: 260lbs before surgery 12. Please follow the diet plan exactly without any change. If you don't like something about the plan or you feel hungry you need to communicate with me so I can help you revise the plan. You should not change the plan yourself 13. To be scheduled for EGD to assess the stomach's anatomy. The possibility of biopsies was discussed. Patient needs to avoid use of NSAIDs and aspirin for 1 week prior to EGD. You must be on liquids only the day before your endoscopy. Risks of perforation and bleeding was discussed with the patient. This will be an outpatient procedure with IV sedation. Orders: Orders Insulin Today E66.01 - Morbid (severe) obesity due to excess calories, E78.5 - Hyperlipidemia, unspecified, I10 - Essential (primary) hypertension, I26.09 - Other pulmonary embolism with acute cor pulmonale Hemoglobin A1c Today E66.01 - Morbid (severe) obesity due to excess calories, E78.5 - Hyperlipidemia, unspecified, I10 - Essential (primary) hypertension, I26.09 - Other pulmonary embolism with acute cor pulmonale H Pylori Breath Test Today E66.01 - Morbid (severe) obesity due to excess calories, E78.5 - Hyperlipidemia, unspecified, I10 - Essential (primary) hypertension, I26.09 - Other pulmonary embolism with acute cor pulmonale Complete Blood Count Auto Diff Today E66.01 - Morbid (severe) obesity due to excess calories, E78.5 - Hyperlipidemia, unspecified, I10 - Essential (primary) hypertension, I26.09 - Other pulmonary embolism with acute cor pulmonale Lipid Panel Today E66.01 - Morbid (severe) obesity due to excess calories, E78.5 - Hyperlipidemia, unspecified, I10 - Essential (primary) hypertension, I26.09 - Other pulmonary embolism with acute cor pulmonale Comprehensive Met. Panel Today E66.01 - Morbid (severe) obesity due to excess calories, E78.5 - Hyperlipidemia, unspecified, I10 - Essential (primary) hypertension, I26.09 - Other pulmonary embolism with acute cor pulmonale Zinc Today E66.01 - Morbid (severe) obesity due to excess calories, E78.5 - Hyperlipidemia, unspecified, I10 - Essential (primary) hypertension, I26.09 - Other pulmonary embolism with acute cor pulmonale C Reactive Protein Today E66.01 - Morbid (severe) obesity due to excess calories, E78.5 - Hyperlipidemia, unspecified, I10 - Essential (primary) hypertension, I26.09 - Other pulmonary embolism with acute cor pulmonale Vitamin B1 Today E66.01 - Morbid (severe) obesity due to excess calories, E78.5 - Hyperlipidemia, unspecified, I10 - Essential (primary) hypertension, I26.09 - Other pulmonary embolism with acute cor pulmonale Vitamin A Today E66.01 - Morbid (severe) obesity due to excess calories, E78.5 - Hyperlipidemia, unspecified, I10 - Essential (primary) hypertension, I26.09 - Other pulmonary embolism with acute cor pulmonale TSH reflex Free T4 Today E66.01 - Morbid (severe) obesity due to excess calories, E78.5 - Hyperlipidemia, unspecified, I10 - Essential (primary) hypertension, I26.09 - Other pulmonary embolism with acute cor pulmonale Vitamin D 25-OH Total Today E66.01 - Morbid (severe) obesity due to excess calories, E78.5 - Hyperlipidemia, unspecified, I10 - Essential (primary) hypertension, I26.09 - Other pulmonary embolism with acute cor pulmonale XR chest 2V Today E66.01 - Morbid (severe) obesity due to excess calories, E78.5 - Hyperlipidemia, unspecified, I10 - Essential (primary) hypertension, I26.09 - Other pulmonary embolism with acute cor pulmonale IRON PROFILE Today E66.01 - Morbid (severe) obesity due to excess calories, E78.5 - Hyperlipidemia, unspecified, I10 - Essential (primary) hypertension, I26.09 - Other pulmonary embolism with acute cor pulmonale Vitamin B12 and Folate Today E66.01 - Morbid (severe) obesity due to excess calories, E78.5 - Hyperlipidemia, unspecified, I10 - Essential (primary) hypertension, I26.09 - Other pulmonary embolism with acute cor pulmonale Ferritin Today E66.01 - Morbid (severe) obesity due to excess calories, E78.5 - Hyperlipidemia, unspecified, I10 - Essential (primary) hypertension, I26.09 - Other pulmonary embolism with acute cor pulmonale US abdomen comp w elastography Today E66.01 - Morbid (severe) obesity due to excess calories, E78.5 - Hyperlipidemia, unspecified, I10 - Essential (primary) hypertension, I26.09 - Other pulmonary embolism with acute cor pulmonale ECG 12 lead EKG Today E66.01 - Morbid (severe) obesity due to excess calories, E78.5 - Hyperlipidemia, unspecified, I10 - Essential (primary) hypertension, I26.09 - Other pulmonary embolism with acute cor pulmonale FL upper GI w air Today E66.01 - Morbid (severe) obesity due to excess calories, E78.5 - Hyperlipidemia, unspecified, I10 - Essential (primary) hypertension, I26.09 - Other pulmonary embolism with acute cor pulmonale Referrals Behavioral Health Referral E66.01 - Morbid (severe) obesity due to excess calories, E78.5 - Hyperlipidemia, unspecified, I10 - Essential (primary) hypertension, I26.09 - Other pulmonary embolism with acute cor pulmonale Nutrition/Dietitian Referral E66.01 - Morbid (severe) obesity due to excess calories, E78.5 - Hyperlipidemia, unspecified, I10 - Essential (primary) hypertension, I26.09 - Other pulmonary embolism with acute cor pulmonale
[2025-02-01 13:37] VITALS: BMI 43.3
--- OUTSIDE RECORDS SUMMARY | 2025-02-01 16:09 | XMS_ITS | Clinical Summary ---
Author Organization [facility] it Address [address] [place] [address] Care Team Providers Care Early Head Start Director Name Role Phone Eliel Jaeger Primary [...] (CMS/HCC V24) DX:Sacroiliitis, not elsewhe re classified ([facility]) History of sarcoidosis 07/13/2017 DX:Histor y of [...] 03/19/2022 03/19/2012 Depression Screening 03/16/2024 COVID-19 Vaccine (2024-2 6 season) 2024 Influenza Vaccine (#1) 2024 RSV [...] age to complete this topic Care Teams Early Head Start Director Relationship Specialty Start Date End Date Eliel Jaeger PA PCP - General Internal Medicine 10/29/21
== END 2025-02-01 14:15 | disposition home or self-care (01) ==
LOC: HO.HBS 08:26
PROVIDERS: PCP Physician Assistant; Visit Provider Surgery
DX: E66.01 Morbid (severe) obesity due to excess calories (principal); Z68.41 Body mass index [BMI] 40.0-44.9, adult
CPT/HCPCS: 99205

== ENCOUNTER 2025-03-01 08:54 | Outpatient (REF) | payer OTHER, SELFPAY ==
--- NOTE | ~2025-03-01 | XR_ITS ---
EXAMINATION: XR CHEST CLINICAL INFORMATION: I10 - Essential (primary) hypertension COMPARISON: September 05, 2023 TECHNIQUE: 2 views of the chest were obtained. FINDINGS: Previous left upper lobe pneumonia has resolved. Lungs are clear. There is no pneumothorax. Heart size is within normal limits. There is no pleural effusion. XR/XR chest 2V IMPRESSION: No acute disease Electronically signed by: William Suarez MD 03/01/2025 11:09 AM CHANDAN
--- NOTE | 2025-03-01 09:01 | ECG_ITS ---
Test Reason : HTN Blood Pressure : */* mmHG Vent. Rate : 73 BPM Atrial Rate : 73 BPM P-R Int : 222 ms QRS Dur : 94 ms QT Int : 372 ms P-R-T Axes : 44 75 64 degrees QTcB Int : 409 ms Sinus rhythm with 1st degree A-V block Nonspecific T wave abnormality Abnormal ECG When compared with ECG of 25-Feb-2024 12:00, ST elevation now present in Inferior leads Nonspecific T wave abnormality has replaced inverted T waves in Inferior leads Referred By: Peterson Linda Electronically Signed By: Austin Serna
--- OUTSIDE RECORDS SUMMARY | 2025-03-01 09:36 | XMS_ITS | Clinical Summary ---
Author Organization [facility] it Address [address] [place] [address] Care Team Providers Care Director Of Strategic Marketing Name Role Phone Eliel Jaeger Primary Care [...] (CMS/HCC V24) DX:Sacroiliitis, not elsewhe re classified ([facility]) History of sarcoidosis 07/13/2017 DX:Histor [...] on file Sexual Orientation Not on file Plan of Treatment Health Maintenance Due Date Last Done Comments Hepatitis B Vaccines (1 of 3 - 19+ 3-dose series) 1997 DTaP,Tdap,and Td Vaccines (2 - Td or Tdap) 03/19/2022 03/19/2012 Depression Screening 03/16/2024 COVID-19 Vaccine (1 - 2024-2 6 season) 2024 Influenza Vaccine (#1) 2024 [...] age to complete this topic Care Teams Director Of Strategic Marketing Relationship Specialty Start Date End Date Eliel Jaeger PA PCP - General Internal Medicine 10/29/21
== END 2025-03-01 08:55 | disposition home or self-care (01) ==
LOC: HO.XRAY 08:54
PROVIDERS: Absent Provider Physician Assistant; PCP Physician Assistant; Visit Provider Surgery
DX: I26.09 Other pulmonary embolism with acute cor pulmonale (principal); I10 Essential (primary) hypertension; E78.5 Hyperlipidemia, unspecified; E66.01 Morbid (severe) obesity due to excess calories
CPT/HCPCS: 71046; 93005

== ENCOUNTER → 2025-03-01 09:01 | Outpatient (BNV) | payer OTHER, SELFPAY | PROVIDERS: Absent Provider Physician Assistant; PCP Physician Assistant; Visit Provider Internal Medicine Cardiovascular Disease | DX: I44.0 Atrioventricular block, first degree (principal) | CPT/HCPCS: 93010 ==

== ENCOUNTER → 2025-03-01 09:38 | Outpatient (BNV) | payer OTHER, SELFPAY | PROVIDERS: PCP Physician Assistant; Visit Provider Internal Medicine | DX: I26.99 Other pulmonary embolism without acute cor pulmonale (principal) | CPT/HCPCS: 99204 ==

== ENCOUNTER → 2025-03-01 10:51 | Outpatient (BNV) | payer OTHER, SELFPAY | PROVIDERS: Absent Provider Physician Assistant; PCP Physician Assistant; Visit Provider Radiology Diagnostic Radiology | DX: I10 Essential (primary) hypertension (principal) | CPT/HCPCS: 71046 ==